=== PATIENT | male | born 1970 | race Caucasian/White ===

== ENCOUNTER → 2017-05-02 | Outpatient (CLI) | payer OTHER ==
[~2017-05-02] MED LIST: /BACL20TA PO; /ROPI5TA OR; ARTHROTEC PO; BACL10TA2 PO; CLON0.5T PO; CLON1TAB PO; CLONIPINE; CLONIPINE PO; COMPOUND CREAM TOP; DICL13PA TD; ETOD20CA PO; IBUP200T2 PO; IBUP400T OR; KLON0.5T PO; LIPITOR PO; LODINE PO; MINI5CAP OR; MIRT7.5T10 PO; MULTIVIT PO; MULTTAB50 PO; REME15TA PO; SILD25TA PO; TIZA4TAB PO; TRAZ50TA OR; TYL RE; ULTR50TA PO; VENL100T PO; VENL37.5 PO; ZANA4CAP OR; [UNRECOGNIZED DRUG - OTHER] PO; [UNRECOGNIZED DRUG - OTHER] TD
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
== END ==
LOC: M PAIN 09:30
PROVIDERS: ATTEND Anesthesiology
DX: M47.812 Spondylosis without myelopathy or radiculopathy, cervical region (principal); M47.816 Spondylosis without myelopathy or radiculopathy, lumbar region; M47.817 Spondylosis without myelopathy or radiculopathy, lumbosacral region; M51.16 Intervertebral disc disorders with radiculopathy, lumbar region; M51.17 Intervertebral disc disorders with radiculopathy, lumbosacral region; M54.5 Low back pain; G89.29 Other chronic pain; Z79.891 Long term (current) use of opiate analgesic; Z79.899 Other long term (current) drug therapy; F17.210 Nicotine dependence, cigarettes, uncomplicated

== ENCOUNTER → 2017-05-15 | Outpatient (CLI) | payer OTHER ==
--- NOTE | 2017-06-09 00:06 | ECWPNPC ---
PATIENT NAME: CARLITO HUA : 1970 GENDER: MALE VISIT DATE: 05/15/2017 DISCHARGE DATE: 05/15/17 1301 VISIT LOCKED DATE TIME: PHYSICIAN: KARINA STALLINGS RESOURCE: KARINA STALLINGS REASON FOR APPOINTMENT 1. MEDS HISTORY OF PRESENT ILLNESS HISTORY OF PRESENT ILLNESS: PAIN THE PATIENT DESCRIBES THE PAIN... FALL RISK SCREENING: SCREENING :NO FALLS IN THE PAST YEAR TODAY'S VISIT: NOTES: RATES PAIN TODAY 7/10. DESCRIBES PAIN CONSTANT, ACHING, SORE AND OCCASIONALLY SHARP AND STABBING. PAIN IS CENTERED OVER BASE OF NECK WITH RADIATION DOWN SPINE TO SACRUM . CURRENT MEDICATIONS TAKING VIAGRA 100 MG TABLET 1 CAP(S) ORALLY DIRECTED TAKING AMITRIPTYLINE HCL 100 MG TABLET 1 TABLET ORALLY ONCE A DAY TAKING OXYCODONE HCL 5 MG TABLET 2 TABLETS ORALLY EVERY 8 HRS TAKING BACLOFEN 20 MG TABLET 2 TABLET WITH FOOD OR MILK ORALLY EVERY 8 HRS TAKING NICOTINE 14 MG/24HR PATCH 24 HOUR 1 PATCH TO SKIN TRANSDERMAL ONCE A DAY TAKING RIBOFLAVIN 100 MG TABLET 2 TABLET WITH A MEAL ORALLY TWICE A DAY TAKING MAGNESIUM 400 MG CAPSULE ORALLY TWICE DAILY TAKING TOPIRAMATE 100 MG TABLET 1 TABLET ORALLY ONCE A DAY MEDICATION LIST REVIEWED AND RECONCILED WITH THE PATIENT PAST MEDICAL HISTORY DEGENERATIVE DISC DISEASE ED ANXIETY, PTSD HEADACHES 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 REVIEW OF SYSTEMS REVIEWED BY: PROVIDER: KARINA STALLINGS CDL FLATBED TRUCK DRIVER . CONSTITUTIONAL: ANY CHANGE IN YOUR MEDICAL CONDITION? NO . CHILLS NO . FEVER NO . INFECTION: DO YOU HAVE NEW INFECTIONS? NO . DO YOU HAVE HISTORY OF MRSA? NO . MUSCULOSKELETAL: ANY NEW PATTERNS OF PAIN OR NUMBNESS? NO . GASTROENTEROLOGY: ANY NEW CHANGE IN BOWEL CONTROL? NO . GENITOURINARY: ANY NEW CHANGE IN BLADDER CONTROL? NO . IS THERE A CHANCE YOU COULD BE ? NO . HEMATOLOGY/LYMPH: DO YOU TAKE ANY BLOOD THINNERS? (FOR EXAMPLE- COUMADIN, PLAVIX, AGGRENOX, PLATEL, PRADAXA, OR XARELTO) NO . WHEN WAS YOUR LAST DOSE? DATE: TIME: . NEUROLOGY: HAVE YOU FALLEN IN THE PAST 6 MONTHS? NO . ANY NEW EXTREMITY NUMBNESS OR WEAKNESS? NO . CARDIOLOGY: DO YOU HAVE A PACEMAKER OR DEFIBRILLATOR? NO . RESPIRATORY: HAVE YOU BEEN SICK IN THE PAST WEEK? NO . FEVER NO . FLU LIKE SYMPTOMS? NO . COUGH NO . INTEGUMENTARY: DO YOU HAVE ANY RASHES OR OPEN SORES? NO . ALLERGIC/IMMUNO: ARE YOU ALLERGIC TO SHELLFISH OR IV DYE? NO . ANY NEW ALLERGIES? NO . PSYCHIATRIC: DO YOU HAVE THOUGHTS OF HURTING YOURSELF OR SOMEONE ELSE? NO . ARE YOU ABUSED, NEGLECTED, OR IN AN UNSAFE ENVIRONMENT? NO . ENDOCRINOLOGY: ARE YOU DIABETIC? NO . OTHER: DO YOU NEED ANY PRESCRIPTIONS? NO . IF YES, PLEASE LIST: ____ . ANY NEW PROBLEMS WITH YOUR MEDICATIONS? NO . WHEN DID YOU LAST EAT? ____ . WHEN DID YOU LAST DRINK? ____ . WHAT DID YOU LAST DRINK? ____ . NAME OF PERSON DRIVING YOU HOME? ____ . DO YOU HAVE ANY OTHER QUESTIONS OR CONCERNS NO . VITAL SIGNS WT 223 LBS, HT 68 IN, BMI 33.90 INDEX, BP 133/84 MM HG, HR 87 /MIN, RR 18 /MIN, TEMP 98.2 F, OXYGEN SAT % 96%, REVIEWED BY: CONNER 1205. EXAMINATION GENERAL EXAMINATION: PSYCHALERT , ORIENTED X 3 , APPROPRIATE MOOD AND AFFECT , GOOD EYE CONTACT. LUNGS:CLEAR TO AUSCULTATION BILATERALLY. HEART:HEART RATE REGULAR. MUSCULOSKELETAL:POINT TENDERNESS OVER CERVICA PARASPINOUS MUSCLES ANS CERVICAL SPINOUS PROCESES. HEAD IN HEAD FORWARD POSITION. TENDER WITH PALPATION OVER BILATERAL OCCIPITAL NOTCH. MARKED DECREASE IN ROM WITH NECK FLEXION, EXTENSION AND ROTATION. , TRIGGER POINTS AND TIGHT FIBROUS BANDS IDENTIFIED OVER BILATERAL TRAPEZIUS MUSCLES AND ALONG SCAPULA. DESIGNER WRITER EQUAL. ABLE TO ABDUSCT ARMS TO 90 DEGREES. NEUROLOGIC EXAM:MRI OF CERVICAL SPINE COMPLETED ON 09/18/15 REVIEWED. ASSESSMENTS SPONDYLOSIS WITHOUT MYELOPATHY OR RADICULOPATHY, CERVICAL REGION - M47.812 (PRIMARY) MYALGIA - M79.1 TREATMENT SPONDYLOSIS WITHOUT MYELOPATHY OR RADICULOPATHY, CERVICAL REGION CERVICAL FACET JOINT KARINA TIERNEY 05/15/2017 12:31:42 PM > BILATERAL THERAPEUTIC NOTES: MEDS PER PCP,FACET JOINT INJECTION MATERIAL WAS PRINTED. PROCEDURE CODES FA211 ESTABILISHED PATIENT [facility] FACILITY CHARGE DISPOSITION & COMMUNICATION FOLLOW UP AFTER PROCEDURE. (REASON: CHECK AUTH FOR CERVICAL THERAPEUTIC FACET BLOCK BILATERAL) ELECTRONICALLY SIGNED BY TOBI BAR ON 06/08/2017 AT 11:05 AM EDT DISCLAIMER : THIS IS A VISIT SUMMARY EXTRACTED FROM THE [employer] CHART. IT IS NOT A COPY OF THE [employer] PROGRESS NOTE. CORIN
== END ==
LOC: M PAIN 11:20
PROVIDERS: ATTEND Nurse Practitioner Family
DX: G89.29 Other chronic pain (principal); M47.812 Spondylosis without myelopathy or radiculopathy, cervical region; M79.1 Myalgia; F41.9 Anxiety disorder, unspecified; F43.10 Post-traumatic stress disorder, unspecified; G25.81 Restless legs syndrome; J44.9 Chronic obstructive pulmonary disease, unspecified; Z79.891 Long term (current) use of opiate analgesic; Z79.899 Other long term (current) drug therapy

== ENCOUNTER → 2017-06-17 | Outpatient (CLI) | payer OTHER ==
[~2017-06-17] MED LIST changes: +BUPIVACAINE HCL 0.25% 30 ML VIAL ONE; +ISOVUE-M 300 61% 15ML VIAL (Q9967) ONE; +LIDOCAINE 1% SDV INJ 30 ML VIAL ONE; +TRIAMCINOLONE ACETONIDE SUSP 40 MG/ML VIAL (J3301) ONE; +diazePAM 5 MG TAB As Ordered ONE; +oxyCODONE 5MG TAB As Ordered ONE
--- NOTE | 2017-06-17 17:20 | REP ---
Partial cervical spine series: Single view. History: Cervical facet block for pain. 6 seconds of fluoroscopy time is reported. Findings: A single last image hold fluoro spot view of the cervical spine documents various needle positions and contrast injections associated with cervical facet injection procedure. Signed by Jv Cagle MD 06/18/2017 07:56 A
--- NOTE | 2017-06-22 23:45 | ECWPNPC ---
PATIENT NAME: CARLITO HUA : 1970 GENDER: MALE VISIT DATE: 06/17/2017 DISCHARGE DATE: 06/17/17 1332 VISIT LOCKED DATE TIME: PHYSICIAN: SHELIA VILLASENOR RESOURCE: SHELIA VILLASENOR REASON FOR APPOINTMENT 1. CERVICAL THERAPEUTIC FACET HISTORY OF PRESENT ILLNESS HISTORY OF PRESENT ILLNESS: PAIN THE PATIENT DESCRIBES THE PAIN... FALL RISK SCREENING: SCREENING :NO FALLS IN THE PAST YEAR CURRENT MEDICATIONS TAKING VIAGRA 100 MG TABLET 1 CAP(S) ORALLY DIRECTED, NOTES: MONTHS TAKING AMITRIPTYLINE HCL 100 MG TABLET 1 TABLET ORALLY ONCE A DAY, NOTES: MIDNIGHT 06/16/17 TAKING OXYCODONE HCL 5 MG TABLET 2 TABLETS ORALLY EVERY 8 HRS, NOTES: 06/16/17 TAKING BACLOFEN 20 MG TABLET 2 TABLET WITH FOOD OR MILK ORALLY EVERY 8 HRS, NOTES: 06/16/17 TAKING NICOTINE 14 MG/24HR PATCH 24 HOUR 1 PATCH TO SKIN TRANSDERMAL ONCE A DAY, NOTES: NOT CURRENTLY TAKING RIBOFLAVIN 100 MG TABLET 2 TABLET WITH A MEAL ORALLY TWICE A DAY, NOTES: 179906/16/17 TAKING MAGNESIUM 400 MG CAPSULE ORALLY TWICE DAILY, NOTES: 1800 06/16/17 TAKING TOPIRAMATE 100 MG TABLET 1 TABLET ORALLY ONCE A DAY, NOTES: 06/16/17 MEDICATION LIST REVIEWED AND RECONCILED WITH THE PATIENT PAST MEDICAL HISTORY DEGENERATIVE DISC DISEASE ED ANXIETY, PTSD HEADACHES 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 REVIEW OF SYSTEMS REVIEWED BY: PROVIDER: . CONSTITUTIONAL: ANY CHANGE IN YOUR MEDICAL CONDITION? NO . CHILLS NO . FEVER NO . INFECTION: DO YOU HAVE NEW INFECTIONS? NO . DO YOU HAVE HISTORY OF MRSA? NO . MUSCULOSKELETAL: ANY NEW PATTERNS OF PAIN OR NUMBNESS? NO . GASTROENTEROLOGY: ANY NEW CHANGE IN BOWEL CONTROL? NO . GENITOURINARY: ANY NEW CHANGE IN BLADDER CONTROL? NO . IS THERE A CHANCE YOU COULD BE ? NO . HEMATOLOGY/LYMPH: DO YOU TAKE ANY BLOOD THINNERS? (FOR EXAMPLE- COUMADIN, PLAVIX, AGGRENOX, PLATEL, PRADAXA, OR XARELTO) NO . WHEN WAS YOUR LAST DOSE? DATE: TIME: . NEUROLOGY: HAVE YOU FALLEN IN THE PAST 6 MONTHS? NO . ANY NEW EXTREMITY NUMBNESS OR WEAKNESS? NO . CARDIOLOGY: DO YOU HAVE A PACEMAKER OR DEFIBRILLATOR? NO . RESPIRATORY: HAVE YOU BEEN SICK IN THE PAST WEEK? NO . FEVER NO . FLU LIKE SYMPTOMS? NO . COUGH NO . INTEGUMENTARY: DO YOU HAVE ANY RASHES OR OPEN SORES? NO . ALLERGIC/IMMUNO: ARE YOU ALLERGIC TO SHELLFISH OR IV DYE? NO . ANY NEW ALLERGIES? NO . PSYCHIATRIC: DO YOU HAVE THOUGHTS OF HURTING YOURSELF OR SOMEONE ELSE? NO . ARE YOU ABUSED, NEGLECTED, OR IN AN UNSAFE ENVIRONMENT? NO . ENDOCRINOLOGY: ARE YOU DIABETIC? NO . OTHER: DO YOU NEED ANY PRESCRIPTIONS? NO . IF YES, PLEASE LIST: ____ . ANY NEW PROBLEMS WITH YOUR MEDICATIONS? NO . WHEN DID YOU LAST EAT? 7PM . WHEN DID YOU LAST DRINK? 0600 . WHAT DID YOU LAST DRINK? BLACK COFFEE . NAME OF PERSON DRIVING YOU HOME? VIKTOR . DO YOU HAVE ANY OTHER QUESTIONS OR CONCERNS NO . VITAL SIGNS WT 222 LBS, HT 68 IN, BMI 33.75 INDEX, BP 120/87 MM HG, HR 100 /MIN, RR 18 /MIN, TEMP 98.9 F, OXYGEN SAT % 96%, NA INITIALS SC 11:23, REVIEWED BY: NL. ASSESSMENTS SPONDYLOSIS WITHOUT MYELOPATHY OR RADICULOPATHY, LUMBAR REGION - M47.816 (PRIMARY) PROCEDURES PN CERVICAL FACET BLOCK LOW BILATERAL CERVICAL PRE PROCEDURE DIAGNOSIS CERVICAL SPONDYLOSIS POST PROCEDURE DIAGNOSIS CERVICAL SPONDYLOSIS PROCEDURE BILATERAL C3-C4 AND BILATERAL C5-C6 CERVICAL FACET BLOCK SURGEON DR. SHELIA VILLASENOR FULL TIME BABYSITTER NONE ANESTHESIA LOCAL PRE PROCEDURE NOTE THE PATIENT HAS HISTORY OF CHRONIC CERVICAL PAIN. I EVALUATE THE PATIENT AND REVIEWED THE CHART. I WENT OVER THE RISKS, ALTERNATIVES, AND BENEFITS ASSOCIATED WITH THIS PROCEDURE. THE PATIENT WOULD LIKE TO PROCEED AND GIVE CONSENT TO PERFORMED THE PROCEDURE. THE PATIENT DENIES UNEXPLAINABLE WEIGHT LOSS, FEVER, CHILLS, OR NEW CHANGES IN URINARY OR BOWEL CONTROL. DESCRIPTION OF PROCEDURE THE PATIENT WAS BROUGHT TO THE PROCEDURE ROOM AND PLACED IN THE PRONE POSITION. THE CERVICOTHORACIC AREA WAS CLEANED WITH CHLORAPREP SOLUTION AND DRAPED ASEPTICALLY. THE PROCEDURE WAS DONE UNDER STERILE CONDITIONS. I CHECKED LATERALITY AND THE LEVEL WHERE THE PROCEDURE WAS GOING TO BE PERFORMED WITH THE PATIENT AND THE SUPPORTING STAFF AT THE MOMENT OF THE TIME OUT IN THE PROCEDURE ROOM. UNDER FLUOROSCOPIC GUIDANCE, TARGET POINT WAS SELECTED AT THE RIGHT AND LEFT C3-C4 AND RIGHT AND LEFT C5-C6 CERVICAL FACET JOINT. TARGET POINTS WERE SELECTED AFTER LATERAL ROTATION AND TILT OF THE MAGNIFIER OF THE C-ARM. LIDOCAINE 0.5% WAS USED TO NUMB THE SKIN AND THE SUBCUTANEOUS TISSUE BELOW IT. SPINAL NEEDLES, 22-GAUGE, WERE ADVANCED UNDER FLUOROSCOPIC GUIDANCE AND FOLLOWING PATIENT FEEDBACK UNTIL THE TARGETS WERE TOUCHED. THE POSITION OF THE NEEDLES WAS VERIFIED WITH AP AND LATERAL VIEWS. AFTER PROPER POSITION OF THE NEEDLES WAS ACHIEVED, ISOVUE M DYE 30, 0.1 ML WAS INJECTED SHOWING SPREAD OF THE DYE. THEN A SOLUTION OF 0.9 ML OF BUPIVACAINE 0.125% AND KENALOG 10 MG WAS INJECTED AT EACH SITE. THERE WAS NO EVIDENCE OF BLOOD, PARESTHESIA OR CEREBROSPINAL FLUID DURING THE PROCEDURE. THE PATIENT WAS SENT TO THE RECOVERY ROOM. THE PATIENT WAS MOVING THE EXTREMITIES AND DOING WELL. THERE WAS NO COMPLICATION DURING THE PROCEDURE. FLUOROSCOPY TIME WAS 6 SECONDS POST PROCEDURE NOTE THE PATIENT WILL BE SEEN IN A FOLLOW UP IN THE NEXT FEW WEEKS. INSTRUCTIONS WERE GIVEN, QUESTIONS WERE ANSWERED, AND THE PATIENT EXPRESSED UNDERSTANDING AND AGREES WITH THE PLAN. I, BOBBY MILLAN, DOCUMENTED THE ABOVE INFORMATION ACTING A SCRIBE FOR DR. VILLASENOR. I HAVE REVIEWED THE ABOVE DOCUMENT, WRITTEN BY BOBBY MILLAN SCRIBSherrill AND I VERIFY THAT IT IS ACCURATE DIAGNOSTIC IMAGING [facility] FACET BLOCK (PAIN)[id number] PROCEDURE CODES 23825 INJ PARAVERT F JNT C/T 1 LEV 89620 INJ PARAVERT F JNT C/T 2 LEV 6045F RADXPS IN END [id number] PXD DISPOSITION & COMMUNICATION FOLLOW UP 3 WEEKS ELECTRONICALLY SIGNED BY SHELIA VILLASENOR MD ON 06/22/2017 AT 07:14 PM EDT DISCLAIMER : THIS IS A VISIT SUMMARY EXTRACTED FROM THE [facility] CHART. IT IS NOT A COPY OF THE [facility] PROGRESS NOTE. MTDD
== END ==
LOC: M PAIN 10:45
PROVIDERS: ATTEND Anesthesiology
DX: G89.29 Other chronic pain (principal); M47.812 Spondylosis without myelopathy or radiculopathy, cervical region; F41.9 Anxiety disorder, unspecified; F43.10 Post-traumatic stress disorder, unspecified; G25.81 Restless legs syndrome; J44.9 Chronic obstructive pulmonary disease, unspecified; Z79.891 Long term (current) use of opiate analgesic; Z79.899 Other long term (current) drug therapy
CPT/HCPCS: 64490; 64491; J3301; Q9967

== ENCOUNTER → 2017-07-04 | Outpatient (CLI) | payer OTHER ==
[~2017-07-04] MED LIST changes: -BUPIVACAINE HCL 0.25% 30 ML VIAL ONE; -ISOVUE-M 300 61% 15ML VIAL (Q9967) ONE; -LIDOCAINE 1% SDV INJ 30 ML VIAL ONE; -TRIAMCINOLONE ACETONIDE SUSP 40 MG/ML VIAL (J3301) ONE; -diazePAM 5 MG TAB As Ordered ONE; -oxyCODONE 5MG TAB As Ordered ONE
--- NOTE | 2017-07-25 00:47 | ECWPNPC ---
PATIENT NAME: CARLITO HUA : 1970 GENDER: MALE VISIT DATE: 07/04/2017 DISCHARGE DATE: 07/04/17 1211 VISIT LOCKED DATE TIME: PHYSICIAN: KARINA STALLINGS RESOURCE: KARINA STALLINGS REASON FOR APPOINTMENT 1. POST PROCEDURE HISTORY OF PRESENT ILLNESS HISTORY OF PRESENT ILLNESS: PAIN THE PATIENT DESCRIBES THE PAIN... FALL RISK SCREENING: SCREENING :NO FALLS IN THE PAST YEAR TODAY'S VISIT: NOTES: IS S/P BILATERAL CERVICAL FACET BLOCK ON . NOTES NEARLY 8 DAYS OF PAIN RELIEF . HAS IMPROVEMEENT IN NECK FLEXABILITY AND WAS ABLE TO HOLD HEADUPRIGHT DURING THIS PERIOD. SLEEP WAS ALSO IMPROVED. HAD ONLY 1 MIGRAINE DURING THIS WEEK. MIGRAINES ARE USUALLY 2-3/WEEK AND LAST 12 + HOURS. + N/V, +PHOT/+PHONO. MIGRAINES ARE BIFRONTAL, START WITH AN AURA AND A SENSE OF STABBING INTO THE YES.. CURRENT MEDICATIONS TAKING VIAGRA 100 MG TABLET 1 CAP(S) ORALLY DIRECTED TAKING AMITRIPTYLINE HCL 100 MG TABLET 1 TABLET ORALLY ONCE A DAY TAKING OXYCODONE HCL 5 MG TABLET 2 TABLETS ORALLY EVERY 8 HRS TAKING BACLOFEN 20 MG TABLET 2 TABLET WITH FOOD OR MILK ORALLY EVERY 8 HRS TAKING RIBOFLAVIN 100 MG TABLET 2 TABLET WITH A MEAL ORALLY TWICE A DAY TAKING MAGNESIUM 400 MG CAPSULE ORALLY TWICE DAILY TAKING TOPIRAMATE 100 MG TABLET 1 TABLET ORALLY ONCE A DAY NOT-TAKING NICOTINE 14 MG/24HR PATCH 24 HOUR 1 PATCH TO SKIN TRANSDERMAL ONCE A DAY MEDICATION LIST REVIEWED AND RECONCILED WITH THE PATIENT PAST MEDICAL HISTORY DEGENERATIVE DISC DISEASE ED ANXIETY, PTSD HEADACHES 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 SURGICAL HISTORY BILATERAL INGUINAL HERNIORRHAPHY (AGE 1) REVIEW OF SYSTEMS REVIEWED BY: PROVIDER: KARINA SOTELO . CONSTITUTIONAL: ANY CHANGE IN YOUR MEDICAL CONDITION? NO . CHILLS NO . FEVER NO . INFECTION: DO YOU HAVE NEW INFECTIONS? NO . DO YOU HAVE HISTORY OF MRSA? NO . MUSCULOSKELETAL: ANY NEW PATTERNS OF PAIN OR NUMBNESS? NO . GASTROENTEROLOGY: ANY NEW CHANGE IN BOWEL CONTROL? NO . GENITOURINARY: ANY NEW CHANGE IN BLADDER CONTROL? NO . IS THERE A CHANCE YOU COULD BE ? NO . HEMATOLOGY/LYMPH: DO YOU TAKE ANY BLOOD THINNERS? (FOR EXAMPLE- COUMADIN, PLAVIX, AGGRENOX, PLATEL, PRADAXA, OR XARELTO) NO . WHEN WAS YOUR LAST DOSE? DATE: TIME: . NEUROLOGY: HAVE YOU FALLEN IN THE PAST 6 MONTHS? NO . ANY NEW EXTREMITY NUMBNESS OR WEAKNESS? NO . CARDIOLOGY: DO YOU HAVE A PACEMAKER OR DEFIBRILLATOR? NO . RESPIRATORY: HAVE YOU BEEN SICK IN THE PAST WEEK? NO . FEVER NO . FLU LIKE SYMPTOMS? NO . COUGH NO . INTEGUMENTARY: DO YOU HAVE ANY RASHES OR OPEN SORES? NO . ALLERGIC/IMMUNO: ARE YOU ALLERGIC TO SHELLFISH OR IV DYE? NO . ANY NEW ALLERGIES? NO . PSYCHIATRIC: DO YOU HAVE THOUGHTS OF HURTING YOURSELF OR SOMEONE ELSE? NO . ARE YOU ABUSED, NEGLECTED, OR IN AN UNSAFE ENVIRONMENT? NO . ENDOCRINOLOGY: ARE YOU DIABETIC? NO . OTHER: DO YOU NEED ANY PRESCRIPTIONS? NO . IF YES, PLEASE LIST: ____ . ANY NEW PROBLEMS WITH YOUR MEDICATIONS? NO . WHEN DID YOU LAST EAT? ____ . WHEN DID YOU LAST DRINK? ____ . WHAT DID YOU LAST DRINK? ____ . NAME OF PERSON DRIVING YOU HOME? ____ . DO YOU HAVE ANY OTHER QUESTIONS OR CONCERNS NO . PSYCHOLOGY: ANXIETY SIGNIFICANT ANXIETY AND WORRY CONCERNING 'S HEALTH&NBSP;. VITAL SIGNS WT 220 LBS, HT 68 IN, BMI 33.45 INDEX, BP 138/94 MM HG, HR 88 /MIN, RR 18 /MIN, TEMP 97.5 F, OXYGEN SAT % 94, REVIEWED BY: EM. EXAMINATION GENERAL EXAMINATION: PSYCHALERT , ORIENTED X 3 , APPROPRIATE MOOD AND AFFECT , GOOD EYE CONTACT. LUNGS:CLEAR TO AUSCULTATION BILATERALLY. HEART:HEART RATE REGULAR. MUSCULOSKELETAL:POINT TENDERNESS OVER CERVICA PARASPINOUS MUSCLES ANS CERVICAL SPINOUS PROCESES. HEAD MORE UPRIGHT TODAY. TENDER WITH PALPATION OVER BILATERAL OCCIPITAL NOTCH. DECREASE IN ROM WITH NECK FLEXION, EXTENSION AND ROTATION. , TRIGGER POINTS AND TIGHT FIBROUS BANDS IDENTIFIED OVER BILATERAL TRAPEZIUS MUSCLES AND ALONG SCAPULA. PROCESS ENGINEERING TECHNICIAN EQUAL. ABLE TO ABDUSCT ARMS TO 90 DEGREES. ASSESSMENTS SPONDYLOSIS WITHOUT MYELOPATHY OR RADICULOPATHY, CERVICAL REGION - M47.812 (PRIMARY) MYALGIA - M79.1 MIGRAINE WITH AURA AND WITHOUT STATUS MIGRAINOSUS, NOT INTRACTABLE - G43.109 LOW BACK PAIN AT MULTIPLE SITES - M54.5 TREATMENT SPONDYLOSIS WITHOUT MYELOPATHY OR RADICULOPATHY, CERVICAL REGION [facility] MRI SPINE, L.S. WITHOUT [id number],SUSAN M 07/04/2017 11:56:13 AM > LUMBAR RADICULOPATHY, MIGRAINE WITH AURA AND WITHOUT STATUS MIGRAINOSUS, NOT INTRACTABLE CHEMODENERVATION (BOTOX) MISC-MIGRAINE HEADACHES PROCEDURE CODES FA211 ESTABILISHED PATIENT [facility] FACILITY CHARGE DISPOSITION & COMMUNICATION FOLLOW UP AFTER INJECTION/MRI (REASON: CHECK AUTH FOR BOTOX AND MRI LUMBAR SPINE) ELECTRONICALLY SIGNED BY TOBI BAR ON 07/24/2017 AT 09:44 PM EDT DISCLAIMER : THIS IS A VISIT SUMMARY EXTRACTED FROM THE [employer] CHART. IT IS NOT A COPY OF THE [employer] PROGRESS NOTE. CORIN
== END ==
LOC: M PAIN 11:00
PROVIDERS: ATTEND Nurse Practitioner Family
DX: G89.29 Other chronic pain (principal); M47.812 Spondylosis without myelopathy or radiculopathy, cervical region; M79.1 Myalgia; G43.109 Migraine with aura, not intractable, without status migrainosus; M54.5 Low back pain; F43.10 Post-traumatic stress disorder, unspecified; F41.9 Anxiety disorder, unspecified; G25.81 Restless legs syndrome; J44.9 Chronic obstructive pulmonary disease, unspecified; Z79.891 Long term (current) use of opiate analgesic; Z79.899 Other long term (current) drug therapy

== ENCOUNTER → 2017-08-08 | Outpatient (CLI) | payer OTHER ==
--- NOTE | 2017-08-08 10:19 | REP ---
MRI LUMBAR SPINE WITHOUT CONTRAST: HISTORY: Back pain. COMPARISON: 05/15/2011. Decreased signal intensity on T2-weighted images is present in the L4-5 and L5-S1 intervertebral discs. The discs are decreased in height. These findings are consistent with disc degeneration. There is no disc bulge or herniation at the L1-2 and L2-3 levels. The nerves exit the neural foramina without compression. A diffuse disc bulge is present at the L3-4 level. There is minimal compression of the thecal sac. There is hypertrophy of the posterior articulating facets. The L3 nerves exit the neural foramina without compression. A diffuse disc bulge is present at the L4-5 level. There is minimal compression of the thecal sac. There is hypertrophy of the posterior articulating facets. A small left intraforaminal disc protrusion is present. This abuts the left L4 nerve in the neural foramen. The right L4 nerve exit the neural foramen without compression. A diffuse disc bulge and small central disc protrusion are present at the L5-S1 level. There is minimal compression of the thecal sac. There is hypertrophy of the posterior articulating facets. The L5 nerves exit the neural foramina without compression. The conus medullaris is normal in appearance terminating at the level of the L1-2 intervertebral disc. Normal signal intensity is present in the lumbar vertebral bodies. IMPRESSION: 1. Diffuse disc bulges at the L3-4 and L4-5 levels with minimal thecal sac compression. A small left intraforaminal disc protrusion is present. This abuts the left L4 nerve in the neural foramen. The disc protrusion is a new finding. 2. Diffuse disc bulge and small central disc protrusion at the L5-S1 level with minimal thecal sac compression. The disc bulge is a new finding. Signed by Leoncio Encarnacion MD 08/08/2017 10:41 A
== END ==
LOC: M PLARAD 08:19
PROVIDERS: ATTEND Nurse Practitioner Family
DX: M54.2 Cervicalgia (principal)

== ENCOUNTER → 2017-08-19 | Outpatient (CLI) | payer OTHER ==
[~2017-08-19] MED LIST changes: +BUPIVACAINE HCL 0.25% 10 ML VIAL As Ordered ONE; +BUPIVACAINE HCL 0.25% 30 ML VIAL As Ordered ONE; +TRIAMCINOLONE ACETONIDE SUSP 40 MG/ML VIAL (J3301) As Ordered ONE; +diazePAM 5 MG TAB As Ordered ONE; +oxyCODONE 5MG TAB As Ordered ONE
--- NOTE | 2017-08-24 23:38 | ECWPNPC ---
PATIENT NAME: CARLITO HUA : 1970 GENDER: MALE VISIT DATE: 08/19/2017 DISCHARGE DATE: 08/19/17 1638 VISIT LOCKED DATE TIME: PHYSICIAN: SHELIA VILLASENOR RESOURCE: SHELIA VILLASENOR REASON FOR APPOINTMENT 1. TPI HISTORY OF PRESENT ILLNESS HISTORY OF PRESENT ILLNESS: PAIN THE PATIENT DESCRIBES THE PAIN... FALL RISK SCREENING: SCREENING :NO FALLS IN THE PAST YEAR CURRENT MEDICATIONS TAKING VIAGRA 100 MG TABLET 1 CAP(S) ORALLY DIRECTED TAKING AMITRIPTYLINE HCL 100 MG TABLET 1 TABLET ORALLY ONCE A DAY, NOTES: 08/18/17 2400 TAKING OXYCODONE HCL 5 MG TABLET 2 TABLETS ORALLY EVERY 8 HRS MDD 5/DAY, NOTES: 08/19/17629 TAKING BACLOFEN 20 MG TABLET 2 TABLET WITH FOOD OR MILK ORALLY EVERY 8 HRS, NOTES: 08/19/17629 TAKING RIBOFLAVIN 100 MG TABLET 2 TABLET WITH A MEAL ORALLY TWICE A DAY, NOTES: 08/19/17629 TAKING MAGNESIUM 400 MG CAPSULE ORALLY TWICE DAILY, NOTES: 08/19/17629 TAKING TOPIRAMATE 100 MG TABLET 1 TABLET ORALLY ONCE A DAY, NOTES: 08/18/172399 TAKING ATORVASTATIN CALCIUM 80 MG TABLET 1 TABLET ORALLY ONCE A DAY, NOTES: 08/18/171999 TAKING NICOTINE 14 MG/24HR PATCH 24 HOUR 1 PATCH TO SKIN TRANSDERMAL ONCE A DAY MEDICATION LIST REVIEWED AND RECONCILED WITH THE PATIENT PAST MEDICAL HISTORY DEGENERATIVE DISC DISEASE ED ANXIETY, PTSD HEADACHES 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 REVIEW OF SYSTEMS REVIEWED BY: PROVIDER: . CONSTITUTIONAL: ANY CHANGE IN YOUR MEDICAL CONDITION? NO . CHILLS NO . FEVER NO . INFECTION: DO YOU HAVE NEW INFECTIONS? NO . DO YOU HAVE HISTORY OF MRSA? NO . MUSCULOSKELETAL: ANY NEW PATTERNS OF PAIN OR NUMBNESS? NO . GASTROENTEROLOGY: ANY NEW CHANGE IN BOWEL CONTROL? NO . GENITOURINARY: ANY NEW CHANGE IN BLADDER CONTROL? NO . IS THERE A CHANCE YOU COULD BE ? NO . HEMATOLOGY/LYMPH: DO YOU TAKE ANY BLOOD THINNERS? (FOR EXAMPLE- COUMADIN, PLAVIX, AGGRENOX, PLATEL, PRADAXA, OR XARELTO) NO . WHEN WAS YOUR LAST DOSE? DATE: TIME: . NEUROLOGY: HAVE YOU FALLEN IN THE PAST 6 MONTHS? NO . ANY NEW EXTREMITY NUMBNESS OR WEAKNESS? NO . CARDIOLOGY: DO YOU HAVE A PACEMAKER OR DEFIBRILLATOR? NO . RESPIRATORY: HAVE YOU BEEN SICK IN THE PAST WEEK? NO . FEVER NO . FLU LIKE SYMPTOMS? NO . COUGH NO . INTEGUMENTARY: DO YOU HAVE ANY RASHES OR OPEN SORES? NO . ALLERGIC/IMMUNO: ARE YOU ALLERGIC TO SHELLFISH OR IV DYE? NO . ANY NEW ALLERGIES? NO . PSYCHIATRIC: DO YOU HAVE THOUGHTS OF HURTING YOURSELF OR SOMEONE ELSE? NO . ARE YOU ABUSED, NEGLECTED, OR IN AN UNSAFE ENVIRONMENT? NO . ENDOCRINOLOGY: ARE YOU DIABETIC? NO . OTHER: DO YOU NEED ANY PRESCRIPTIONS? NO . IF YES, PLEASE LIST: ____ . ANY NEW PROBLEMS WITH YOUR MEDICATIONS? NO . WHEN DID YOU LAST EAT? 08-19-17629 . WHEN DID YOU LAST DRINK? 08-19-17629 . WHAT DID YOU LAST DRINK? COFFEE . NAME OF PERSON DRIVING YOU HOME? JAYLAN- . DO YOU HAVE ANY OTHER QUESTIONS OR CONCERNS NO . VITAL SIGNS WT 220 LBS, HT 68 IN, BMI 33.45 INDEX, BP 119/89 MM HG, HR 94 /MIN, RR 18 /MIN, TEMP 98.0 F, OXYGEN SAT % 94%, NA INITIALS AW 1446, REVIEWED BY: CM. ASSESSMENTS MYALGIA - M79.1 (PRIMARY) PROCEDURES PN TRIGGER POINT INJECTION WITH STEROIDS PRE PROCEDURE DIAGNOSIS 1. MYALGIA 2. PAIN AT RIGHT NECK AREA AND RIGHT SHOULDER AREA POST PROCEDURE DIAGNOSIS 1. MYALGIA 2. PAIN AT RIGHT NECK AREA AND RIGHT SHOULDER AREA PROCEDURE TRIGGER POINT INJECTION AT RIGHT NECK AREA AND RIGHT SHOULDER AREA SURGEON DR. SHELIA VILLASENOR STUD BEEF CATTLE FARMER NONE ANESTHESIA LOCAL PRE PROCEDURE NOTE THE PATIENT HAS A HISTORY OF CHRONIC PAIN AT THE RIGHT NECK AREA AND RIGHT SHOULDER AREA. I EVALUATE THE PATIENT AND REVIEWED THE CHART. THERE IS EVIDENCE OF BANDS OF TISSUE WITH RESTRICTION OF MOVEMENT AND PRESENCE OF TRIGGER POINT AT THE AFFECTED AREA. I WENT OVER THE RISKS, ALTERNATIVES, AND BENEFITS ASSOCIATED WITH THIS PROCEDURE. THE PATIENT WOULD LIKE TO PROCEED AND GIVE CONSENT TO PERFORMED THE PROCEDURE. THE PATIENT DENIES UNEXPLAINABLE WEIGHT LOSS, FEVER, CHILLS, OR NEW CHANGES IN URINARY OR BOWEL CONTROL DESCRIPTION OF PROCEDURE THE PATIENT WAS BROUGHT TO THE PROCEDURE ROOM AND PLACED IN THE SITTING POSITION. THE AREA WAS CLEANED WITH ALCOHOL. THE PROCEDURE WAS DONE USING ASEPTIC STERILE TECHNIQUE. I CHECKED LATERALITY AND THE LEVEL WHERE THE PROCEDURE WAS GOING TO BE PERFORMED WITH THE PATIENT AND THE SUPPORTING STAFF AT THE MOMENT OF THE TIME OUT IN THE PROCEDURE ROOM. USING A 25-GAUGE NEEDLE, TRIGGER POINTS WERE INJECTED AT THE RIGHT NECK AREA AND RIGHT SHOULDER AREA WITH A TOTAL OF 40 ML OF BUPIVACAINE 0.25% AND KENALOG 40 MG. THERE WAS NO EVIDENCE OF BLOOD, PARESTHESIA OR CEREBROSPINAL FLUID DURING THE PROCEDURE. THE PATIENT WAS SENT TO THE RECOVERY ROOM. THE PATIENT WAS MOVING THE EXTREMITIES AND DOING WELL. THERE WAS NO COMPLICATION DURING THE PROCEDURE POST PROCEDURE NOTE THE PATIENT WILL BE SEEN IN A FOLLOW UP IN THE NEXT FEW WEEKS. INSTRUCTIONS WERE GIVEN, QUESTIONS WERE ANSWERED, AND THE PATIENT EXPRESSED UNDERSTANDING AND AGREES WITH THE PLAN. I, BOBBY MILLAN, DOCUMENTED THE ABOVE INFORMATION ACTING A SCRIBE FOR DR. VILLASENOR. I HAVE REVIEWED THE ABOVE DOCUMENT, WRITTEN BY BOBBY GONGORA AND I VERIFY THAT IT IS ACCURATE PROCEDURE CODES 16631 INJ TRIGGER POINT 11/04 [facility] DISPOSITION & COMMUNICATION FOLLOW UP 3 WEEKS ELECTRONICALLY SIGNED BY SHELIA VILLASENOR MD ON 08/24/2017 AT 01:39 PM EDT DISCLAIMER : THIS IS A VISIT SUMMARY EXTRACTED FROM THE [employer] CHART. IT IS NOT A COPY OF THE [employer] PROGRESS NOTE. CORIN
== END ==
LOC: M PAIN 14:30
PROVIDERS: ATTEND Anesthesiology
DX: G89.29 Other chronic pain (principal); M54.2 Cervicalgia; M25.511 Pain in right shoulder; M79.1 Myalgia; F41.9 Anxiety disorder, unspecified; F43.10 Post-traumatic stress disorder, unspecified; G25.81 Restless legs syndrome; J44.9 Chronic obstructive pulmonary disease, unspecified; Z79.891 Long term (current) use of opiate analgesic; Z79.899 Other long term (current) drug therapy
CPT/HCPCS: 20552; J3301

== ENCOUNTER → 2017-09-10 | Outpatient (CLI) | payer OTHER ==
[~2017-09-10] MED LIST changes: -BUPIVACAINE HCL 0.25% 10 ML VIAL As Ordered ONE; -BUPIVACAINE HCL 0.25% 30 ML VIAL As Ordered ONE; -TRIAMCINOLONE ACETONIDE SUSP 40 MG/ML VIAL (J3301) As Ordered ONE; -diazePAM 5 MG TAB As Ordered ONE; -oxyCODONE 5MG TAB As Ordered ONE
--- NOTE | 2017-10-01 00:10 | ECWPNPC ---
PATIENT NAME: CARLITO HUA : 1970 GENDER: MALE VISIT DATE: 09/10/2017 DISCHARGE DATE: 09/10/17 1613 VISIT LOCKED DATE TIME: PHYSICIAN: KARINA STALLINGS RESOURCE: KARINA STALLINGS REASON FOR APPOINTMENT 1. NECK HISTORY OF PRESENT ILLNESS TODAY'S VISIT: NOTES: RATES PAIN LEVEL TODAY 7/10. IS S/P TPI TO NECK AND SHOULDERS ON 08/1717 WITH DECREASE IN PAIN FROM 7/10 TO 3/10 AND WORST [AIN BECAME THORACIC AND LOW BACK REGION. DID HAVE SOEM DECREASE IN HEADACHES . THIS LASTED FOR ABOUT 3 WEEKS. CURRENTLY MIGRAINE IS OCCURRING 3-4 DAYS A WEEK AND LASTING 20 HOURS. IS HAVING SIG PHOTOPHOBIA AND IS WEARING DARK LENSES. POS NAUSEA WITH THE MIGRAINES. HAS NOT HEARD FROM AUTH FOR BOTOX. CURRENT MEDICATIONS TAKING VIAGRA 100 MG TABLET 1 CAP(S) ORALLY DIRECTED TAKING AMITRIPTYLINE HCL 150 MG TABLET 1 TABLET ORALLY ONCE A DAY TAKING OXYCODONE HCL 5 MG TABLET 2 TABLETS ORALLY EVERY 8 HRS MDD 3/DAY TAKING BACLOFEN 20 MG TABLET 2 TABLET WITH FOOD OR MILK ORALLY EVERY 8 HRS TAKING RIBOFLAVIN 100 MG TABLET 2 TABLET WITH A MEAL ORALLY TWICE A DAY TAKING MAGNESIUM 400 MG CAPSULE ORALLY TWICE DAILY TAKING TOPIRAMATE 100 MG TABLET 1 TABLET ORALLY NIGHTLY TAKING ATORVASTATIN CALCIUM 80 MG TABLET 1 TABLET ORALLY ONCE A DAY TAKING NICOTINE 14 MG/24HR PATCH 24 HOUR 1 PATCH TO SKIN TRANSDERMAL ONCE A DAY TAKING TOPIRAMATE 50 MG TABLET 1 TABLET ORALLY IN MORNING MEDICATION LIST REVIEWED AND RECONCILED WITH THE PATIENT PAST MEDICAL HISTORY DEGENERATIVE DISC DISEASE ED ANXIETY, PTSD HEADACHES HEARING IMPAIMENT LOW BACK AND NECK PAIN RESTLESS LEG SYNDROME COPD W/O2 2L N/C AT NIGHT ALLERGIES NO[ALLERGIES VERIFIED] SURGICAL HISTORY BILATERAL INGUINAL HERNIORRHAPHY (AGE 1) SOCIAL HISTORY GENERAL: TOBACCO USE ARE YOU A:CURRENT SMOKER ARE YOU INTERESTED IN QUITTING?READY TO QUIT PREVIOUS QUIT ATTEMPTS?YES, WITHIN THE LAST 6 MONTHS. IS ONLY HAVING 1-2 CIGS OCC NOT EVERY DAY. COUNSELED THE PATIENT ON TOBACCO USE, CESSATION [id number]/30/2017 HOW MANY CIGARETTES A DAY DO YOU SMOKE?5 OR LESS PATIENT COUNSELED ON THE DANGERS OF TOBACCO USE AND URGED TO QUIT:05/02/2017 ALCOHOL SCREENING DID YOU HAVE A DRINK CONTAINING ALCOHOL IN THE PAST YEAR?NO POINTS0 INTERPRETATIONNEGATIVE RECREATIONAL DRUG USE DRUG USE?NO CAFFEINE CAFFEINE USE?YES HOW OFTEN AND HOW MUCH? HAS ONE CUB OF COFFEE DAILY ORTHODOXY [id number] NONE LEARNING BARRIERS / SPECIAL NEEDS BARRIERS TO LEARNING?NO HEARING IMPAIRED?YES : SLIGHT HEARING IMPAIRED VISION IMPAIRED?YES : CORRECTIVE LENSES READINESS TO LEARN?YES LEARNING PREFERENCES?NO EMOTIONAL BARRIERS?NO SPECIAL DEVICES?NO DIRECTOR OF MARKET ANALYSIS NEEDED?NO PSYCHOLOGICAL HX TREATMENTYES HOW OFTEN AND HOW MUCH? MONTHLY AND WEEKLY PAIN CLINIC PFS, CLERGY, PUBLIC HEALTH REFERRALS PFS REFERRAL NEEDED?NO CLERGY REFERRAL NEEDED?NO PUBLIC HEALTH REFERRAL NEEDED?NO WAS THE PROVIDER NOTIFIED OF ANY PERTINENT INFO?NO HAS THE PATIENT BEEN EDUCATED REGARDING HIS/HER PLAN OF CARE?YES HAS THE PATIENT BEEN EDUCATED REGARDING PAIN, THE RISK FOR PAIN, THE IMPORTANCE OF EFFECTIVE PAIN MANAGEMENT, AND THE PAIN ASSESSMENT PROCESS?YES PATIENT: ____. ADVANCE DIRECTIVES HEALTH CARE PROXY?NO WOULD YOU LIKE MORE INFORMATION?NO VITAL SIGNS WT 227.8 LBS, HT 68 IN, BMI 34.63 INDEX, BP 147/91 MM HG, HR 89 /MIN, RR 18 /MIN, TEMP 98.2 F, OXYGEN SAT % 96%, NA INITIALS SC 15:02, REVIEWED BY: NL. ASSESSMENTS MYALGIA - M79.1 (PRIMARY) SPONDYLOSIS WITHOUT MYELOPATHY OR RADICULOPATHY, CERVICAL REGION - M47.812 MIGRAINE WITH AURA AND WITHOUT STATUS MIGRAINOSUS, NOT INTRACTABLE - G43.109 LOW BACK PAIN AT MULTIPLE SITES - M54.5 TREATMENT MYALGIA START TIZANIDINE HCL TABLET, 4 MG, 1 TABLET NEEDED, ORALLY, BID PRN SEVERE MUSCLE SPASMS, 30 DAY(S), 60, REFILLS 0 CERVICAL EPIDURAL RIGHT NOTES: WILL CONTINUE TO CHECK ON BOTOX FOR CHRONIC MIGRAINETAKE 1/2 TAB TIZANIDINE AM AND MIDDAY AND WHOLE TAB AT NITE. CONSIDER BEING SEEN AT [facility] FOR TINNITUS. ,CERVICAL EPIDURAL INJECTION MATERIAL WAS PRINTED. PREVENTIVE MEDICINE REVIEWED PRE PROCEDURE CARE AND TRUDY / PT EXPRESSED UNDERSTANDING OF ALL. PROCEDURE CODES FA211 ESTABILISHED PATIENT [facility] FACILITY CHARGE DISPOSITION & COMMUNICATION FOLLOW UP SCHEDULE FOR CESB, FOLLOWUP AFTER (REASON: NECK - MIGRAINE,) ELECTRONICALLY SIGNED BY TOBI BAR ON 09/30/2017 AT 08:37 AM EST DISCLAIMER : THIS IS A VISIT SUMMARY EXTRACTED FROM THE [employer] CHART. IT IS NOT A COPY OF THE [employer] PROGRESS NOTE. MTDD
== END ==
LOC: M PAIN 14:15
PROVIDERS: ATTEND Nurse Practitioner Family
DX: M79.1 Myalgia (principal); M47.812 Spondylosis without myelopathy or radiculopathy, cervical region; G43.109 Migraine with aura, not intractable, without status migrainosus; M54.5 Low back pain; F17.210 Nicotine dependence, cigarettes, uncomplicated; Z79.891 Long term (current) use of opiate analgesic; Z79.899 Other long term (current) drug therapy

== ENCOUNTER → 2017-09-22 | Outpatient (CLI) | payer OTHER ==
--- NOTE | 2017-10-07 00:02 | ECWPNPC ---
PATIENT NAME: CARLITO HUA : 1970 GENDER: MALE VISIT DATE: 09/22/2017 DISCHARGE DATE: 09/22/17 1202 VISIT LOCKED DATE TIME: PHYSICIAN: SHELIA VILLASENOR RESOURCE: SHELIA VILLASENOR REASON FOR APPOINTMENT 1. LOW BACK AND CERVICAL AREA PAIN HISTORY OF PRESENT ILLNESS GENERAL: 47 YEAR OLD MALE PATIENT WITH HISTORY OF CHRONIC LOW BACK AND NECK PAIN. PATIENT DESCRIBES THE PAIN ACHING, SHARP, TENDER, SORE AND HAVING IT ALL THE TIME WITH THE PAIN SCORE OF 7/10. PATIENT IS CURRENTLY USING OXYCODONE, BACLOFEN, TIZANIDINE, AND AMITRIPTYLINE TO AID IN PAIN RELIEF. PATIENT RECEIVED A CERVICAL EPIDURAL TODAY AND REPORTS HIS NECK FEELING BETTER BUT HIS LOWER BACK IS BECOMING SEVERE. PATIENT DENIES UNEXPLAINABLE WEIGHT LOSS, FEVER, CHILLS, NEW CHANGES ON HIS URINARY OR BOWEL CONTROL. CURRENT MEDICATIONS TAKING VIAGRA 100 MG TABLET 1 CAP(S) ORALLY DIRECTED TAKING AMITRIPTYLINE HCL 150 MG TABLET 1 TABLET ORALLY ONCE A DAY TAKING OXYCODONE HCL 5 MG TABLET 1 TABLET ORALLY DAILY TAKING BACLOFEN 20 MG TABLET 2 TABLET WITH FOOD OR MILK ORALLY EVERY 8 HRS TAKING RIBOFLAVIN 100 MG TABLET 2 TABLET WITH A MEAL ORALLY TWICE A DAY TAKING MAGNESIUM 400 MG CAPSULE ORALLY TWICE DAILY TAKING TOPIRAMATE 100 MG TABLET 1 TABLET ORALLY NIGHTLY TAKING ATORVASTATIN CALCIUM 80 MG TABLET 1 TABLET ORALLY ONCE A DAY TAKING TOPIRAMATE 50 MG TABLET 1 TABLET ORALLY IN MORNING TAKING TIZANIDINE HCL 4 MG TABLET 1 TABLET NEEDED ORALLY BID PRN SEVERE MUSCLE SPASMS TAKING NICOTINE POLACRILEX 4 MG LOZENGE 1 LOZENGE NEEDED MOUTH/THROAT TWICE A DAY MEDICATION LIST REVIEWED AND RECONCILED WITH THE PATIENT PAST MEDICAL HISTORY DEGENERATIVE DISC DISEASE ED ANXIETY, PTSD HEADACHES 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 SOCIAL HISTORY GENERAL: TOBACCO USE ARE YOU A:FORMER SMOKER FORMER SMOKER, USING NICOTINE TABS NOW ALCOHOL SCREENING DID YOU HAVE A DRINK CONTAINING ALCOHOL IN THE PAST YEAR?NO POINTS0 INTERPRETATIONNEGATIVE RECREATIONAL DRUG USE DRUG USE?NO CAFFEINE CAFFEINE USE?YES HOW OFTEN AND HOW MUCH? HAS ONE CUB OF COFFEE DAILY CHRISTIANITY [id number] NONE LEARNING BARRIERS / SPECIAL NEEDS BARRIERS TO LEARNING?NO HEARING IMPAIRED?YES : SLIGHT HEARING IMPAIRED VISION IMPAIRED?YES : CORRECTIVE LENSES READINESS TO LEARN?YES LEARNING PREFERENCES?NO EMOTIONAL BARRIERS?NO SPECIAL DEVICES?NO INSURANCE ACCOUNT MANAGER NEEDED?NO PSYCHOLOGICAL HX TREATMENTYES HOW OFTEN AND HOW MUCH? MONTHLY AND WEEKLY PAIN CLINIC PFS, CLERGY, PUBLIC HEALTH REFERRALS PFS REFERRAL NEEDED?NO CLERGY REFERRAL NEEDED?NO PUBLIC HEALTH REFERRAL NEEDED?NO WAS THE PROVIDER NOTIFIED OF ANY PERTINENT INFO?NO HAS THE PATIENT BEEN EDUCATED REGARDING HIS/HER PLAN OF CARE?YES HAS THE PATIENT BEEN EDUCATED REGARDING PAIN, THE RISK FOR PAIN, THE IMPORTANCE OF EFFECTIVE PAIN MANAGEMENT, AND THE PAIN ASSESSMENT PROCESS?YES PATIENT: ____. ADVANCE DIRECTIVES HEALTH CARE PROXY?NO WOULD YOU LIKE MORE INFORMATION?NO VITAL SIGNS WT 230.0 LBS, HT 68 IN, BMI 34.97 INDEX, BP 135/85 MM HG, HR 90 /MIN, RR 18 /MIN, TEMP 98.7 F, OXYGEN SAT % 96%, NA INITIALS TL 1124, REVIEWED BY: CONNER. EXAMINATION GENERAL: PATIENT IS ALERT O X 3 AND COOPERATIVE. TENDERNESS IN THE CERVICAL AREA AND PARASPINAL MUSCLE GROUP. DIFFICULTIES WITH EXTENDING THE NECK. TENDERNESS IN THE LOWER BACK AND PARASPINAL MUSCLE GROUP. DIFFICULTIES STANDING. LIMPING FROM RIGHT LEG. RIGHT LEG IS WEAKER THEN THE LEFT AT EXTENSION AND FLEXION. MRI OF THE LUMBAR SPINE DONE ON 03/10/2017 SHOWS MILD DEGENERATIVE DISC DISEASE ALONG WITH MULTIPLE DISC BULGES. MRI OF THE CERVICAL SPINE DONE ON 09/18/15 SHOWS MULTIPLE DISC BULGES AND FACET ARTHROPATHY. 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 HUA'S PAIN MANAGEMENT CASE. AT THIS TIME THE PATIENT WILL CONTINUE WITH THE SAME MEDICATION REGIME BEFORE. I WOULD LIKE THE PATIENT TO RECEIVE A CERVICAL SOFT COLLAR, PATIENT WAS ADVISED TO WEAR THE COLLAR THE LEAST AMOUNT OF TIME POSSIBLE AND ONLY AT NIGHT. WE DISCUSSED THE ISSUE OF USING THE COLLAR AND LOSING MUSCLE DUE TO IT AND PATIENT IS AWARE. INSTRUCTIONS WERE GIVEN, QUESTIONS WERE ANSWERED, PATIENT REPORTS UNDERSTANDING AND AGREES WITH THE PLAN. IBOBBY, DOCUMENTED THE ABOVE INFORMATION ACTING A SCRIBE FOR DR. VILLASENOR. I HAVE REVIEWED THE ABOVE DOCUMENT, WRITTEN BY BOBBY GONGORA AND I VERIFY THAT IT IS ACCURATE. PROCEDURE CODES FA211 ESTABILISHED PATIENT [facility] CHARGE G8427 DOC MEDS VERIFIED W/PT OR RE G8730 PAIN ASSESS POS TOOL F/U PLAN DOC DISPOSITION & COMMUNICATION FOLLOW UP 3 WEEKS ELECTRONICALLY SIGNED BY SHELIA VILLASENOR MD ON 10/06/2017 AT 06:21 PM EST DISCLAIMER : THIS IS A VISIT SUMMARY EXTRACTED FROM THE [employer] CHART. IT IS NOT A COPY OF THE [employer] PROGRESS NOTE. MTDD
== END ==
LOC: M PAIN 10:30
PROVIDERS: ATTEND Anesthesiology
DX: M47.812 Spondylosis without myelopathy or radiculopathy, cervical region (principal); M47.816 Spondylosis without myelopathy or radiculopathy, lumbar region; M47.817 Spondylosis without myelopathy or radiculopathy, lumbosacral region; G89.29 Other chronic pain; Z79.899 Other long term (current) drug therapy; Z79.891 Long term (current) use of opiate analgesic; Z87.891 Personal history of nicotine dependence

== ENCOUNTER → 2017-09-22 | Outpatient (CLI) | payer OTHER ==
[~2017-09-22] MED LIST changes: +ISOVUE-M 300 61% 15ML VIAL (Q9967) As Ordered ONE; +LIDOCAINE 1% SDV INJ 30 ML VIAL As Ordered ONE; +diazePAM 5 MG TAB As Ordered ONE; +methylPREDNISolone SUSP 40 MG/ML (DEPO-medrol) VIAL (J1030) As Ordered ONE; +oxyCODONE 5MG TAB As Ordered ONE
--- NOTE | 2017-09-22 13:21 | REP ---
Cervical spine: Two views. History: Cervical epidural block for pain. 33 seconds of fluoroscopy time is reported. Findings: A sequence of two last image hold fluoroscopic spot radiographs of the cervicothoracic junction document needle position and contrast injection associated with cervical facet injection procedure. Signed by Jv Cagle MD 09/22/2017 01:13 P
--- NOTE | 2017-10-07 00:49 | ECWPNPC ---
PATIENT NAME: CARLITO HUA : 1970 GENDER: MALE VISIT DATE: 09/22/2017 DISCHARGE DATE: 09/22/17 1115 VISIT LOCKED DATE TIME: PHYSICIAN: SHELIA VILLASENOR RESOURCE: SHELIA VILLASENOR REASON FOR APPOINTMENT 1. CERVICAL EPIDURAL HISTORY OF PRESENT ILLNESS HISTORY OF PRESENT ILLNESS: PAIN THE PATIENT DESCRIBES THE PAIN... FALL RISK SCREENING: SCREENING :NO FALLS IN THE PAST YEAR CURRENT MEDICATIONS TAKING VIAGRA 100 MG TABLET 1 CAP(S) ORALLY DIRECTED, NOTES: NONE TAKING AMITRIPTYLINE HCL 150 MG TABLET 1 TABLET ORALLY ONCE A DAY, NOTES: 09-21-172099 TAKING OXYCODONE HCL 5 MG TABLET 1 TABLET ORALLY DAILY, NOTES: 09-21-172099 TAKING BACLOFEN 20 MG TABLET 2 TABLET WITH FOOD OR MILK ORALLY EVERY 8 HRS, NOTES: 09-21-172099 TAKING RIBOFLAVIN 100 MG TABLET 2 TABLET WITH A MEAL ORALLY TWICE A DAY, NOTES: 09-21-17 AM TAKING MAGNESIUM 400 MG CAPSULE ORALLY TWICE DAILY, NOTES: 09-21-17 AM TAKING TOPIRAMATE 100 MG TABLET 1 TABLET ORALLY NIGHTLY, NOTES: 09-21-172099 TAKING ATORVASTATIN CALCIUM 80 MG TABLET 1 TABLET ORALLY ONCE A DAY, NOTES: 09-21-172099 TAKING TOPIRAMATE 50 MG TABLET 1 TABLET ORALLY IN MORNING, NOTES: 09-21-17 AM TAKING TIZANIDINE HCL 4 MG TABLET 1 TABLET NEEDED ORALLY BID PRN SEVERE MUSCLE SPASMS, NOTES: 09-21-172099 TAKING NICOTINE POLACRILEX 4 MG LOZENGE 1 LOZENGE NEEDED MOUTH/THROAT TWICE A DAY, NOTES: 09-22-17 0600 DISCONTINUED NICOTINE 14 MG/24HR PATCH 24 HOUR 1 PATCH TO SKIN TRANSDERMAL ONCE A DAY MEDICATION LIST REVIEWED AND RECONCILED WITH THE PATIENT PAST MEDICAL HISTORY DEGENERATIVE DISC DISEASE ED ANXIETY, PTSD HEADACHES 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 SOCIAL HISTORY GENERAL: TOBACCO USE ARE YOU A:FORMER SMOKER FORMER SMOKER, USING NICOTINE TABS NOW ALCOHOL SCREENING DID YOU HAVE A DRINK CONTAINING ALCOHOL IN THE PAST YEAR?NO POINTS0 INTERPRETATIONNEGATIVE RECREATIONAL DRUG USE DRUG USE?NO CAFFEINE CAFFEINE USE?YES HOW OFTEN AND HOW MUCH? HAS ONE CUB OF COFFEE DAILY [id number] NONE LEARNING BARRIERS / SPECIAL NEEDS BARRIERS TO LEARNING?NO HEARING IMPAIRED?YES : SLIGHT HEARING IMPAIRED VISION IMPAIRED?YES : CORRECTIVE LENSES READINESS TO LEARN?YES LEARNING PREFERENCES?NO EMOTIONAL BARRIERS?NO SPECIAL DEVICES?NO PATHOLOGY SECRETARY NEEDED?NO PSYCHOLOGICAL HX TREATMENTYES HOW OFTEN AND HOW MUCH? MONTHLY AND WEEKLY PAIN CLINIC PFS, CLERGY, PUBLIC HEALTH REFERRALS PFS REFERRAL NEEDED?NO CLERGY REFERRAL NEEDED?NO PUBLIC HEALTH REFERRAL NEEDED?NO WAS THE PROVIDER NOTIFIED OF ANY PERTINENT INFO?NO HAS THE PATIENT BEEN EDUCATED REGARDING HIS/HER PLAN OF CARE?YES HAS THE PATIENT BEEN EDUCATED REGARDING PAIN, THE RISK FOR PAIN, THE IMPORTANCE OF EFFECTIVE PAIN MANAGEMENT, AND THE PAIN ASSESSMENT PROCESS?YES PATIENT: ____. ADVANCE DIRECTIVES HEALTH CARE PROXY?NO WOULD YOU LIKE MORE INFORMATION?NO REVIEW OF SYSTEMS REVIEWED BY: PROVIDER: . CONSTITUTIONAL: ANY CHANGE IN YOUR MEDICAL CONDITION? NO . CHILLS NO . FEVER NO . INFECTION: DO YOU HAVE NEW INFECTIONS? NO . DO YOU HAVE HISTORY OF MRSA? NO . MUSCULOSKELETAL: ANY NEW PATTERNS OF PAIN OR NUMBNESS? NO . GASTROENTEROLOGY: ANY NEW CHANGE IN BOWEL CONTROL? NO . GENITOURINARY: ANY NEW CHANGE IN BLADDER CONTROL? NO . IS THERE A CHANCE YOU COULD BE ? NO . HEMATOLOGY/LYMPH: DO YOU TAKE ANY BLOOD THINNERS? (FOR EXAMPLE- COUMADIN, PLAVIX, AGGRENOX, PLATEL, PRADAXA, OR XARELTO) NO . WHEN WAS YOUR LAST DOSE? DATE: TIME: . NEUROLOGY: HAVE YOU FALLEN IN THE PAST 6 MONTHS? NO . ANY NEW EXTREMITY NUMBNESS OR WEAKNESS? NO . CARDIOLOGY: DO YOU HAVE A PACEMAKER OR DEFIBRILLATOR? NO . RESPIRATORY: HAVE YOU BEEN SICK IN THE PAST WEEK? NO . FEVER NO . FLU LIKE SYMPTOMS? NO . COUGH NO . INTEGUMENTARY: DO YOU HAVE ANY RASHES OR OPEN SORES? NO . ALLERGIC/IMMUNO: ARE YOU ALLERGIC TO SHELLFISH OR IV DYE? NO . ANY NEW ALLERGIES? NO . PSYCHIATRIC: DO YOU HAVE THOUGHTS OF HURTING YOURSELF OR SOMEONE ELSE? NO . ARE YOU ABUSED, NEGLECTED, OR IN AN UNSAFE ENVIRONMENT? NO . ENDOCRINOLOGY: ARE YOU DIABETIC? NO . OTHER: DO YOU NEED ANY PRESCRIPTIONS? NO . IF YES, PLEASE LIST: ____ . ANY NEW PROBLEMS WITH YOUR MEDICATIONS? NO . WHEN DID YOU LAST EAT? 11-19-17 2330 . WHEN DID YOU LAST DRINK? 09-22-17 0600 . WHAT DID YOU LAST DRINK? WATER . NAME OF PERSON DRIVING YOU HOME? JAYLAN . DO YOU HAVE ANY OTHER QUESTIONS OR CONCERNS NO . VITAL SIGNS WT 230 LBS, HT 68 IN, BMI 34.97 INDEX, BP 135/85 MM HG, HR 90 /MIN, RR 18 /MIN, TEMP 98.7 F, OXYGEN SAT % 96%, NA INITIALS SC 08:53, REVIEWED BY: CM. ASSESSMENTS CERVICAL DISC DISORDER WITH RADICULOPATHY OF CERVICOTHORACIC REGION - M50.13 (PRIMARY) PROCEDURES PN CERVICAL EPIDURAL PRE PROCEDURE DIAGNOSIS CERVICAL DISC DISORDER WITH RADICULOPATHY POST PROCEDURE DIAGNOSIS CERVICAL DISC DISORDER WITH RADICULOPATHY PROCEDURE CERVICAL EPIDURAL STEROID INJECTION UNDER FLUOROSCOPIC GUIDANCE SURGEON DR. SHELIA VILLASENOR GRAPE GROWER NONE ANESTHESIA LOCAL PRE PROCEDURE NOTE THE PATIENT HAS A HISTORY OF CHRONIC CERVICAL PAIN. I EVALUATE THE PATIENT AND REVIEWED THE CHART. I WENT OVER THE RISKS, ALTERNATIVES, AND BENEFITS ASSOCIATED WITH THIS PROCEDURE. THE PATIENT WOULD LIKE TO PROCEED AND GIVE CONSENT TO PERFORMED THE PROCEDURE. THE PATIENT DENIES UNEXPLAINABLE WEIGHT LOSS, FEVER, CHILLS, OR NEW CHANGES IN URINARY OR BOWEL CONTROL DESCRIPTION OF PROCEDURE THE PATIENT WAS BROUGHT TO THE PROCEDURE ROOM AND PLACED IN THE PRONE POSITION. THE CERVICOTHORACIC AREA WAS CLEANED WITH BETADINE SOLUTION AND DRAPED ASEPTICALLY. THE PROCEDURE WAS DONE UNDER STERILE CONDITIONS. I CHECKED LATERALITY AND THE LEVEL WHERE THE PROCEDURE WAS GOING TO BE PERFORMED WITH THE PATIENT AND THE SUPPORTING STAFF AT THE MOMENT OF THE TIME OUT IN THE PROCEDURE ROOM. UNDER FLUOROSCOPIC GUIDANCE, THE TARGET WAS SELECTED AT THE INTERLAMINAR LEVEL OF C7-T1. LIDOCAINE WAS USED TO NUMB THE SKIN AND THE SUBCUTANEOUS TISSUE BELOW IT. EPIDURAL TUOHY NEEDLE 17-GAUGE WAS ADVANCED UNDER FLUOROSCOPIC GUIDANCE AND FOLLOWING PATIENT FEEDBACK UNTIL THE EPIDURAL SPACE WAS REACHED 6 CM DEEP INTO THE SKIN BY THE LOSS OF RESISTANCE TECHNIQUE. ISOVUE M DYE 30%, 0.25 ML, WAS INJECTED SHOWING ADEQUATE SPREAD OF THE DYE. THEN, A SOLUTION OF 3 ML OF NORMAL SALINE WITH DEPO-MEDROL 60 MG WAS INJECTED SLOWLY FOLLOWING PATIENT FEEDBACK. THERE WAS NO EVIDENCE OF BLOOD, PARESTHESIA OR CEREBROSPINAL FLUID DURING THE PROCEDURE. THE PATIENT WAS SENT TO THE RECOVERY ROOM. THE PATIENT WAS MOVING THE EXTREMITIES AND DOING WELL. THERE WAS NO COMPLICATION DURING THE PROCEDURE. FLUOROSCOPY TIME WAS 33 SECONDS POST PROCEDURE NOTE THE PATIENT WILL BE SEEN IN A FOLLOW UP IN THE NEXT FEW WEEKS. INSTRUCTIONS WERE GIVEN, QUESTIONS WERE ANSWERED, AND THE PATIENT EXPRESSED UNDERSTANDING AND AGREES WITH THE PLAN. I, BOBBY MILLAN, DOCUMENTED THE ABOVE INFORMATION ACTING A SCRIBE FOR DR. VILLASENOR. I HAVE REVIEWED THE ABOVE DOCUMENT, WRITTEN BY BOBBY WEIRIBSherrill AND I VERIFY THAT IT IS ACCURATE DIAGNOSTIC IMAGING [facility] FLUORO GUIDE SPINE INJECTION (PAIN)[id number] PROCEDURE CODES 30098 CERVICAL/THORACIC W/ IMAGING 6045F RADXPS IN END [id number] PXD DISPOSITION & COMMUNICATION FOLLOW UP 3 WEEKS ELECTRONICALLY SIGNED BY SHELIA VILLASENOR MD ON 10/06/2017 AT 06:28 PM EST DISCLAIMER : THIS IS A VISIT SUMMARY EXTRACTED FROM THE [employer] CHART. IT IS NOT A COPY OF THE [employer] PROGRESS NOTE. MTDD
== END ==
LOC: M PAIN 08:30
PROVIDERS: ATTEND Anesthesiology
DX: G89.29 Other chronic pain (principal); M50.13 Cervical disc disorder with radiculopathy, cervicothoracic region; F41.9 Anxiety disorder, unspecified; F43.10 Post-traumatic stress disorder, unspecified; Z87.891 Personal history of nicotine dependence; Z79.899 Other long term (current) drug therapy
CPT/HCPCS: 62321; J1030; Q9967

== ENCOUNTER → 2017-10-14 | Outpatient (CLI) | payer OTHER | LOC: M PAIN 13:30 | DX: G89.29 Other chronic pain (principal); M47.812 Spondylosis without myelopathy or radiculopathy, cervical region; M47.816 Spondylosis without myelopathy or radiculopathy, lumbar region; M47.817 Spondylosis without myelopathy or radiculopathy, lumbosacral region; M79.1 Myalgia; F41.9 Anxiety disorder, unspecified; F43.10 Post-traumatic stress disorder, unspecified; N52.9 Male erectile dysfunction, unspecified; R51 Headache; H91.90 Unspecified hearing loss, unspecified ear; G25.81 Restless legs syndrome; J44.9 Chronic obstructive pulmonary disease, unspecified; Z99.81 Dependence on supplemental oxygen; Z87.891 Personal history of nicotine dependence; Z79.899 Other long term (current) drug therapy | CPT/HCPCS: G0463 ==

== ENCOUNTER → 2017-11-06 | Outpatient (CLI) | payer OTHER ==
[~2017-11-06] MED LIST changes: -/BACL20TA PO; -/ROPI5TA OR; -ARTHROTEC PO; -BACL10TA2 PO; +BUPIVACAINE HCL 0.25% 10 ML VIAL As Ordered; +BUPIVACAINE HCL 0.25% 30 ML VIAL As Ordered; -CLON0.5T PO; -CLON1TAB PO; -CLONIPINE; -CLONIPINE PO; -COMPOUND CREAM TOP; -DICL13PA TD; -ETOD20CA PO; -IBUP200T2 PO; -IBUP400T OR; -ISOVUE-M 300 61% 15ML VIAL (Q9967) As Ordered ONE; -KLON0.5T PO; -LIDOCAINE 1% SDV INJ 30 ML VIAL As Ordered ONE; -LIPITOR PO; -LODINE PO; -MINI5CAP OR; -MIRT7.5T10 PO; -MULTIVIT PO; -MULTTAB50 PO; -REME15TA PO; -SILD25TA PO; -TIZA4TAB PO; -TRAZ50TA OR; +TRIAMCINOLONE ACETONIDE SUSP 40 MG/ML VIAL (J3301) As Ordered; -TYL RE; -ULTR50TA PO; -VENL100T PO; -VENL37.5 PO; -ZANA4CAP OR; -[UNRECOGNIZED DRUG - OTHER] PO; -[UNRECOGNIZED DRUG - OTHER] TD; +diazePAM 5 MG TAB As Ordered; -diazePAM 5 MG TAB As Ordered ONE; +diphenhydrAMINE 25 MG CAP As Ordered; -methylPREDNISolone SUSP 40 MG/ML (DEPO-medrol) VIAL (J1030) As Ordered ONE; +oxyCODONE 5MG TAB As Ordered; -oxyCODONE 5MG TAB As Ordered ONE
== END ==
LOC: M PAIN 11:45
DX: G89.29 Other chronic pain (principal); M79.1 Myalgia; Z79.899 Other long term (current) drug therapy
CPT/HCPCS: J3301

== ENCOUNTER → 2017-11-24 | Outpatient (CLI) | payer OTHER | LOC: M PAIN 09:00 | DX: M47.812 Spondylosis without myelopathy or radiculopathy, cervical region (principal); M47.816 Spondylosis without myelopathy or radiculopathy, lumbar region; M47.817 Spondylosis without myelopathy or radiculopathy, lumbosacral region; M79.1 Myalgia; Z79.899 Other long term (current) drug therapy; Z87.891 Personal history of nicotine dependence | CPT/HCPCS: G0463 ==

== ENCOUNTER 2017-12-23 07:59 | Day surgery (SDC) | payer OTHER ==
[2017-12-23] MEDS: NS 1,000 ML IV ×3 (08:30)
[2017-12-23] MEDS ORDERED: LIDOCAINE 2% MDV 20 ML VIAL As Ordered ×3 (08:33)
[2017-12-23] MEDS ORDERED: PROPOFOL 200 MG/20 ML VIAL As Ordered ×12 (08:33→09:08)
== END 2017-12-23 10:06 | disposition home or self-care (01) ==
LOC: M OPP 07:59
DX: R10.13 Epigastric pain (principal); R12 Heartburn; K22.8 Other specified diseases of esophagus; K21.0 Gastro-esophageal reflux disease with esophagitis; K44.9 Diaphragmatic hernia without obstruction or gangrene; K31.89 Other diseases of stomach and duodenum; E78.5 Hyperlipidemia, unspecified; M19.90 Unspecified osteoarthritis, unspecified site; F41.9 Anxiety disorder, unspecified; F32.9 Major depressive disorder, single episode, unspecified; G43.909 Migraine, unspecified, not intractable, without status migrainosus; G62.9 Polyneuropathy, unspecified; F43.10 Post-traumatic stress disorder, unspecified; R06.2 Wheezing; J44.9 Chronic obstructive pulmonary disease, unspecified; Z79.899 Other long term (current) drug therapy; Z87.891 Personal history of nicotine dependence
CPT/HCPCS: 43239

== ENCOUNTER → 2018-01-08 | Outpatient (CLI) | payer OTHER ==
[~2018-01-08] MED LIST changes: -BUPIVACAINE HCL 0.25% 10 ML VIAL As Ordered; -BUPIVACAINE HCL 0.25% 30 ML VIAL As Ordered; +ISOVUE-M 300 61% 15ML VIAL (Q9967) As Ordered; +LIDOCAINE 1% SDV INJ 30 ML VIAL As Ordered; -TRIAMCINOLONE ACETONIDE SUSP 40 MG/ML VIAL (J3301) As Ordered; -diphenhydrAMINE 25 MG CAP As Ordered; +methylPREDNISolone SUSP 40 MG/ML (DEPO-medrol) VIAL (J1030) As Ordered
== END ==
LOC: M PAIN 08:45
DX: G89.29 Other chronic pain (principal); M51.16 Intervertebral disc disorders with radiculopathy, lumbar region; F41.9 Anxiety disorder, unspecified; F43.10 Post-traumatic stress disorder, unspecified; R51 Headache; G25.81 Restless legs syndrome; J44.9 Chronic obstructive pulmonary disease, unspecified; Z79.899 Other long term (current) drug therapy
CPT/HCPCS: J1030

== ENCOUNTER → 2018-01-23 | Outpatient (CLI) | payer OTHER | LOC: M PAIN 09:00 | DX: M47.812 Spondylosis without myelopathy or radiculopathy, cervical region (principal); M47.816 Spondylosis without myelopathy or radiculopathy, lumbar region; M47.817 Spondylosis without myelopathy or radiculopathy, lumbosacral region; M79.1 Myalgia; F41.9 Anxiety disorder, unspecified; F43.10 Post-traumatic stress disorder, unspecified; G43.109 Migraine with aura, not intractable, without status migrainosus; G25.81 Restless legs syndrome; J44.9 Chronic obstructive pulmonary disease, unspecified; Z79.899 Other long term (current) drug therapy; Z87.891 Personal history of nicotine dependence | CPT/HCPCS: G0463 ==

== ENCOUNTER → 2018-02-12 | Outpatient (CLI) | payer OTHER ==
[~2018-02-12] MED LIST changes: +BUPIVACAINE HCL 0.25% 30 ML VIAL As Ordered; +TRIAMCINOLONE ACETONIDE SUSP 40 MG/ML VIAL (J3301) As Ordered; -methylPREDNISolone SUSP 40 MG/ML (DEPO-medrol) VIAL (J1030) As Ordered
== END ==
LOC: M PAIN 08:45
DX: G89.29 Other chronic pain (principal); M47.812 Spondylosis without myelopathy or radiculopathy, cervical region; F41.9 Anxiety disorder, unspecified; F43.10 Post-traumatic stress disorder, unspecified; R51 Headache; G25.81 Restless legs syndrome; J44.9 Chronic obstructive pulmonary disease, unspecified; K22.719 Barrett's esophagus with dysplasia, unspecified; Z79.899 Other long term (current) drug therapy; Z87.891 Personal history of nicotine dependence; Z96.20 Presence of otological and audiological implant, unspecified
CPT/HCPCS: J3301

== ENCOUNTER → 2018-02-26 | Outpatient (CLI) | payer OTHER | LOC: M PAIN 08:45 | DX: M47.812 Spondylosis without myelopathy or radiculopathy, cervical region (principal); M47.816 Spondylosis without myelopathy or radiculopathy, lumbar region; M47.817 Spondylosis without myelopathy or radiculopathy, lumbosacral region; M79.1 Myalgia; G43.909 Migraine, unspecified, not intractable, without status migrainosus; F43.10 Post-traumatic stress disorder, unspecified; N52.9 Male erectile dysfunction, unspecified; F41.9 Anxiety disorder, unspecified; Z79.899 Other long term (current) drug therapy; Z87.891 Personal history of nicotine dependence | CPT/HCPCS: G0463 ==

== ENCOUNTER → 2018-03-11 | Outpatient (CLI) | payer OTHER | LOC: M PAIN 08:30 | DX: G89.29 Other chronic pain (principal); M47.816 Spondylosis without myelopathy or radiculopathy, lumbar region; M47.817 Spondylosis without myelopathy or radiculopathy, lumbosacral region; N52.9 Male erectile dysfunction, unspecified; F41.9 Anxiety disorder, unspecified; F43.10 Post-traumatic stress disorder, unspecified; R51 Headache; G25.81 Restless legs syndrome; J44.9 Chronic obstructive pulmonary disease, unspecified; K22.70 Barrett's esophagus without dysplasia; Z79.899 Other long term (current) drug therapy; Z87.891 Personal history of nicotine dependence | CPT/HCPCS: J3301 ==

== ENCOUNTER → 2018-05-19 | Outpatient (CLI) | payer OTHER | LOC: M PAIN 13:45 | DX: M47.812 Spondylosis without myelopathy or radiculopathy, cervical region (principal); M47.816 Spondylosis without myelopathy or radiculopathy, lumbar region; M47.817 Spondylosis without myelopathy or radiculopathy, lumbosacral region; M79.1 Myalgia; I10 Essential (primary) hypertension; E78.5 Hyperlipidemia, unspecified; K22.70 Barrett's esophagus without dysplasia; R51 Headache; Z79.899 Other long term (current) drug therapy; Z88.8 Allergy status to other drugs, medicaments and biological substances | CPT/HCPCS: G0463 ==

== ENCOUNTER → 2018-06-09 | Outpatient (CLI) | payer OTHER | LOC: M PAIN 10:00 | DX: G89.29 Other chronic pain (principal); M47.812 Spondylosis without myelopathy or radiculopathy, cervical region; F41.9 Anxiety disorder, unspecified; F43.10 Post-traumatic stress disorder, unspecified; G25.81 Restless legs syndrome; J44.9 Chronic obstructive pulmonary disease, unspecified; K22.70 Barrett's esophagus without dysplasia; Z79.899 Other long term (current) drug therapy; Z88.8 Allergy status to other drugs, medicaments and biological substances; Z87.891 Personal history of nicotine dependence | CPT/HCPCS: J3301 ==

== ENCOUNTER → 2018-06-25 | Outpatient (CLI) | payer OTHER | LOC: M PAIN 08:45 | DX: M47.812 Spondylosis without myelopathy or radiculopathy, cervical region (principal); M47.816 Spondylosis without myelopathy or radiculopathy, lumbar region; M47.817 Spondylosis without myelopathy or radiculopathy, lumbosacral region; M79.1 Myalgia; F41.9 Anxiety disorder, unspecified; F43.10 Post-traumatic stress disorder, unspecified; G25.81 Restless legs syndrome; J44.9 Chronic obstructive pulmonary disease, unspecified; K22.70 Barrett's esophagus without dysplasia; Z79.899 Other long term (current) drug therapy; Z88.8 Allergy status to other drugs, medicaments and biological substances; Z87.891 Personal history of nicotine dependence | CPT/HCPCS: G0463 ==

== ENCOUNTER → 2018-07-08 | Outpatient (CLI) | payer OTHER ==
[~2018-07-08] MED LIST changes: +BUPIVACAINE HCL 0.25% 10 ML VIAL As Ordered; -ISOVUE-M 300 61% 15ML VIAL (Q9967) As Ordered; -LIDOCAINE 1% SDV INJ 30 ML VIAL As Ordered
== END ==
LOC: M PAIN 11:45
DX: G89.29 Other chronic pain (principal); M79.1 Myalgia; M54.5 Low back pain; F41.9 Anxiety disorder, unspecified; F43.10 Post-traumatic stress disorder, unspecified; G25.81 Restless legs syndrome; J44.9 Chronic obstructive pulmonary disease, unspecified; K22.70 Barrett's esophagus without dysplasia; F17.200 Nicotine dependence, unspecified, uncomplicated; Z79.899 Other long term (current) drug therapy; Z88.8 Allergy status to other drugs, medicaments and biological substances
CPT/HCPCS: J3301

== ENCOUNTER → 2018-08-31 | Outpatient (CLI) | payer OTHER | LOC: M PAIN 09:15 | DX: M47.812 Spondylosis without myelopathy or radiculopathy, cervical region (principal); M47.816 Spondylosis without myelopathy or radiculopathy, lumbar region; M47.817 Spondylosis without myelopathy or radiculopathy, lumbosacral region; M79.18 Myalgia, other site; F41.9 Anxiety disorder, unspecified; F43.10 Post-traumatic stress disorder, unspecified; G25.81 Restless legs syndrome; J44.9 Chronic obstructive pulmonary disease, unspecified; K22.70 Barrett's esophagus without dysplasia; Z72.0 Tobacco use; Z79.899 Other long term (current) drug therapy; Z88.8 Allergy status to other drugs, medicaments and biological substances | CPT/HCPCS: G0463 ==

== ENCOUNTER → 2018-09-28 | Outpatient (CLI) | payer OTHER ==
[~2018-09-28] MED LIST changes: -BUPIVACAINE HCL 0.25% 10 ML VIAL As Ordered; +ISOVUE-M 300 61% 15ML VIAL (Q9967) As Ordered; +LIDOCAINE 1% SDV INJ 30 ML VIAL As Ordered
== END ==
LOC: M PAIN 08:30
DX: G89.29 Other chronic pain (principal)
CPT/HCPCS: J3301

== ENCOUNTER → 2018-10-08 | Outpatient (CLI) | payer OTHER | LOC: M PAIN 13:15 | DX: M47.817 Spondylosis without myelopathy or radiculopathy, lumbosacral region (principal); J44.9 Chronic obstructive pulmonary disease, unspecified; K22.70 Barrett's esophagus without dysplasia; G25.81 Restless legs syndrome; Z72.0 Tobacco use; F41.9 Anxiety disorder, unspecified; F43.10 Post-traumatic stress disorder, unspecified; Z79.899 Other long term (current) drug therapy; Z88.8 Allergy status to other drugs, medicaments and biological substances | CPT/HCPCS: G0463 ==

== ENCOUNTER → 2018-11-10 | Outpatient (CLI) | payer OTHER ==
[~2018-11-10] MED LIST changes: +/BACL20TA PO; +/ROPI5TA OR; +ALL10TAB28 PO; +AMIT100TA PO; +ARTHROTEC PO; +ATEN25TA PO; +BACL10TA2 PO; +BUDE180INH INH; -BUPIVACAINE HCL 0.25% 30 ML VIAL As Ordered; +BUPIVACAINE HCL 0.25% 30 ML VIAL As Ordered ONE; +BUSP10TA PO; +CLON0.5T PO; +CLON1TAB PO; +CLONIPINE; +CLONIPINE PO; +COMPOUND CREAM TOP; +DICL13PA TD; +ETOD20CA PO; +FLUTISP; +IBUP200T2 PO; +IBUP400T OR; -ISOVUE-M 300 61% 15ML VIAL (Q9967) As Ordered; +ISOVUE-M 300 61% 15ML VIAL (Q9967) As Ordered ONE; +K-TA10TA PO; +KLON0.5T PO; -LIDOCAINE 1% SDV INJ 30 ML VIAL As Ordered; +LIDOCAINE 1% SDV INJ 30 ML VIAL As Ordered ONE; +LIPI80TA PO; +LIPITOR PO; +LODINE PO; +MAGN400T5 PO; +MINI5CAP OR; +MIRT7.5T10 PO; +MULTIVIT PO; +MULTTAB50 PO; +NICO2LOZ MT; +OMEP40CA2 PO; +OXYC15TA76 PO; +PRAZ5CAP PO; +PROAAER10 INH; +PROC5TA PO; +REME15TA PO; +RIBO100C PO; +SILD25TA PO; +SUCRPOW; +TIZA4CAP PO; +TIZA4TAB PO; +TOPA50TA8 PO; +TRAZ50TA OR; -TRIAMCINOLONE ACETONIDE SUSP 40 MG/ML VIAL (J3301) As Ordered; +TRIAMCINOLONE ACETONIDE SUSP 40 MG/ML VIAL (J3301) As Ordered ONE; +TYL RE; +ULTR50TA PO; +VENL100T PO; +VENL37.5 PO; +VITATAB11 PO; +ZANA4CAP OR; +[UNRECOGNIZED DRUG - OTHER]; +[UNRECOGNIZED DRUG - OTHER] PO; +[UNRECOGNIZED DRUG - OTHER] TD; -diazePAM 5 MG TAB As Ordered; +diazePAM 5 MG TAB As Ordered ONE; -oxyCODONE 5MG TAB As Ordered; +oxyCODONE 5MG TAB As Ordered ONE
--- NOTE | 2018-11-10 13:18 | REP ---
Partial lumbar spine series: Four views . History: Injection procedure for pain. 23 seconds of fluoroscopy time is reported. Findings: A sequence of four fluoroscopically obtained last image hold procedural spot radiographs of the lumbar spine document needle position and contrast injection associated with injection procedure. Electronically Signed by Jv Cagle MD 11/10/2018 01:09 P
--- NOTE | 2018-11-25 01:17 | ECWPNPC ---
PATIENT NAME: CARLITO HUA : 1970 GENDER: MALE VISIT DATE: 11/10/2018 DISCHARGE DATE: 11/10/18 1101 VISIT LOCKED DATE TIME: PHYSICIAN: SHELIA VILLASENOR MD RESOURCE: SHELIA VILLASENOR MD REASON FOR APPOINTMENT 1. THER FACET BLOCK PER LB TE 10/29/18 HISTORY OF PRESENT ILLNESS HISTORY OF PRESENT ILLNESS: PAIN THE PATIENT DESCRIBES THE PAIN... FALL RISK SCREENING: SCREENING :NO FALLS IN THE PAST YEAR CURRENT MEDICATIONS TAKING TIZANIDINE HCL 4 MG TABLET 1 TABLET NEEDED ORALLY BID, NOTES: 11/09/181999 TAKING BACLOFEN 20 MG TABLET 2 TABLET WITH FOOD OR MILK ORALLY EVERY 8 HRS, NOTES: 11/09/181999 TAKING RIBOFLAVIN 100 MG TABLET 2 TABLET WITH A MEAL ORALLY TWICE A DAY, NOTES: 11/09/181199 TAKING MAGNESIUM 400 MG CAPSULE ORALLY TWICE DAILY, NOTES: 11/09/181199 TAKING TOPIRAMATE 100 MG TABLET 1 TABLET ORALLY NIGHTLY, NOTES: 11/09/181999 TAKING TOPIRAMATE 50 MG TABLET 1 TABLET ORALLY IN MORNING, NOTES: 11/09/18599 TAKING POTASSIUM CHLORIDE 10 MEQ CAPSULE EXTENDED RELEASE 1 CAPSULE WITH FOOD ORALLY ONCE A DAY, NOTES: 11/09/181999 TAKING ATENOLOL 25 MG TABLET 1 TABLET ORALLY ONCE A DAY, NOTES: 11/09/18599 TAKING FISH OIL 1000 MG CAPSULE 1 CAPSULE ORALLY TID, NOTES: 11/09/181999 TAKING VITAMIN B COMPLEX - TABLET ORALLY , NOTES: 11/09/18599 TAKING CRESTOR 40 MG TABLET 1 TABLET ORALLY ONCE A DAY, NOTES: 11/09/181199 TAKING OMEPRAZOLE 10 MG CAPSULE DELAYED RELEASE 1 CAPSULE ORALLY BID, NOTES: 11/09/181999 TAKING BOTOX 200 UNIT SOLUTION RECONSTITUTED INJECTION , NOTES: AUGUST OR SEPTEMBER TAKING DULOXETINE HCL 30 MG CAPSULE DELAYED RELEASE PARTICLES 1 CAPSULE ORALLY ONCE A DAY, NOTES: 11/09/181199 TAKING COMBIVENT 120-20 MCG/ACT AEROSOL 2 PUFFS INHALATION FOUR TIMES A DAY, NOTES: 11/09/181999 TAKING SYMBICORT 80-4.5 MCG/ACT AEROSOL 2 PUFFS INHALATION TWICE A DAY, NOTES: 11/10/18 TAKING VIAGRA 100 MG TABLET 1 CAP(S) ORALLY DIRECTED, NOTES: NONE RECENTLY MEDICATION LIST REVIEWED AND RECONCILED WITH THE PATIENT PAST MEDICAL HISTORY DEGENERATIVE DISC DISEASE ED ANXIETY, PTSD HEADACHES 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 SOCIAL HISTORY GENERAL: TOBACCO USE ARE YOU A:CURRENT SMOKER ARE YOU INTERESTED IN QUITTING?READY TO QUIT CURRENTLY TRYING TO QUIT, USING NICOTINE LOZENGES AND PATCHES AND IS CUTTING BACK COUNSELED THE PATIENT ON TOBACCO USE, CESSATION [id number]/08/2019 PATIENT COUNSELED ON THE DANGERS OF TOBACCO USE AND URGED TO QUIT:11/10/2018 ALCOHOL SCREENING DID YOU HAVE A DRINK CONTAINING ALCOHOL IN THE PAST YEAR?NO POINTS0 INTERPRETATIONNEGATIVE RECREATIONAL DRUG USE DRUG USE?NO CAFFEINE CAFFEINE USE?YES HOW OFTEN AND HOW MUCH? HAS 1-2 CUPS OF COFFEE DAILY [employer] [id number] NONE LANGUAGE LANGUAGES SPOKEN:CAMBODIAN LEARNING BARRIERS / SPECIAL NEEDS BARRIERS TO LEARNING?NO HEARING IMPAIRED?YES : SLIGHT HEARING IMPAIRED VISION IMPAIRED?YES : CORRECTIVE LENSES READINESS TO LEARN?YES LEARNING PREFERENCES?NO EMOTIONAL BARRIERS?NO SPECIAL DEVICES?NO RN PRACTITIONER NEEDED?NO DIET: REGULAR. PAIN CLINIC PFS, CLERGY, PUBLIC HEALTH REFERRALS PFS REFERRAL NEEDED?NO CLERGY REFERRAL NEEDED?NO PUBLIC HEALTH REFERRAL NEEDED?NO WAS THE PROVIDER NOTIFIED OF ANY PERTINENT INFO?YES HAS THE PATIENT BEEN EDUCATED REGARDING HIS/HER PLAN OF CARE?YES HAS THE PATIENT BEEN EDUCATED REGARDING PAIN, THE RISK FOR PAIN, THE IMPORTANCE OF EFFECTIVE PAIN MANAGEMENT, AND THE PAIN ASSESSMENT PROCESS?YES ADVANCE DIRECTIVE ADVANCE DIRECTIVE DISCUSSED WITH PATIENT:YES PT DECLINES HCP INFORMATION. REVIEWED 02/26/18 0920 BVREVIEWED WITH PT 06/25/18 0915 LASREVIEWED WITH PATIENT 08/31/18 1001 JSREVIEWED WITH PT 09/28/18 0903 BVREVIEWED WITH PATIENT 11/10/18 0926 JS. HOSPITALIZATION/MAJOR DIAGNOSTIC PROCEDURE SLEEP STUDY MENTAL HEALTH 2011 REVIEW OF SYSTEMS REVIEWED BY: PROVIDER: . CONSTITUTIONAL: ANY CHANGE IN YOUR MEDICAL CONDITION? NO . CHILLS NO . FEVER NO . INFECTION: DO YOU HAVE NEW INFECTIONS? NO . DO YOU HAVE HISTORY OF MRSA? NO . MUSCULOSKELETAL: ANY NEW PATTERNS OF PAIN OR NUMBNESS? YES, PATIENT STATES ABOUT A WEEK AGO HE WOKE UP AND COULDN'T MOVE FOR A FEW DAYS DUE TO THE PAIN, SEEN AT URGENT CARE, HAS IMPROVED SOME SINCE . GASTROENTEROLOGY: ANY NEW CHANGE IN BOWEL CONTROL? NO . GENITOURINARY: ANY NEW CHANGE IN BLADDER CONTROL? NO . IS THERE A CHANCE YOU COULD BE ? NO . HEMATOLOGY/LYMPH: DO YOU TAKE ANY BLOOD THINNERS? (FOR EXAMPLE- COUMADIN, PLAVIX, AGGRENOX, PLATEL, PRADAXA, OR XARELTO) NO . WHEN WAS YOUR LAST DOSE? DATE: TIME: . NEUROLOGY: HAVE YOU FALLEN IN THE PAST 6 MONTHS? NO . ANY NEW EXTREMITY NUMBNESS OR WEAKNESS? NO . CARDIOLOGY: DO YOU HAVE A PACEMAKER OR DEFIBRILLATOR? NO . RESPIRATORY: HAVE YOU BEEN SICK IN THE PAST WEEK? NO . FEVER NO . FLU LIKE SYMPTOMS? NO . COUGH NO . INTEGUMENTARY: DO YOU HAVE ANY RASHES OR OPEN SORES? NO . ALLERGIC/IMMUNO: ARE YOU ALLERGIC TO SHELLFISH OR IV DYE? NO . ANY NEW ALLERGIES? NO . PSYCHIATRIC: DO YOU HAVE THOUGHTS OF HURTING YOURSELF OR SOMEONE ELSE? NO . ARE YOU ABUSED, NEGLECTED, OR IN AN UNSAFE ENVIRONMENT? NO . ENDOCRINOLOGY: ARE YOU DIABETIC? NO . OTHER: DO YOU NEED ANY PRESCRIPTIONS? NO . IF YES, PLEASE LIST: ____ . ANY NEW PROBLEMS WITH YOUR MEDICATIONS? NO . WHEN DID YOU LAST EAT? ____11/09/18 2200 . WHEN DID YOU LAST DRINK? ____11/10/18 0600 . WHAT DID YOU LAST DRINK? ____WATER . NAME OF PERSON DRIVING YOU HOME? ____KRISTEL . DO YOU HAVE ANY OTHER QUESTIONS OR CONCERNS NO . VITAL SIGNS WT 205.8 LBS, HT 68 IN, BMI 31.29 INDEX, BP 136/77 MM HG, HR 96 /MIN, RR 18 /MIN, TEMP 97.8 F, OXYGEN SAT % 98%, SAFE IN ENV? (Y/N) YES, NA INITIALS AW 0915, REVIEWED BY: JS. ASSESSMENTS SPONDYLOSIS OF LUMBAR REGION WITHOUT MYELOPATHY OR RADICULOPATHY - M47.816 (PRIMARY) SPONDYLOSIS OF LUMBOSACRAL REGION WITHOUT MYELOPATHY OR RADICULOPATHY - M47.817 PROCEDURES PN LUMBAR FACET BLOCK THERAPEUTIC PRE PROCEDURE DIAGNOSIS LUMBAR SPONDYLOSIS, LUMBOSACRAL SPONDYLOSIS POST PROCEDURE DIAGNOSIS LUMBAR SPONDYLOSIS, LUMBOSACRAL SPONDYLOSIS PROCEDURE BILATERAL L4-L5 AND BILATERAL L5-S1 LUMBAR FACET THERAPEUTIC BLOCK SURGEON DR. SHELIA VILLASENOR ALLERGIST IMMUNOLOGIST NONE ANESTHESIA LOCAL PRE PROCEDURE NOTE THE PATIENT HAS A HISTORY OF CHRONIC LOW BACK PAIN. I EVALUATE THE PATIENT AND REVIEWED THE CHART. I WENT OVER THE RISKS, ALTERNATIVES, AND BENEFITS ASSOCIATED WITH THIS PROCEDURE. THE PATIENT WOULD LIKE TO PROCEED AND GIVE CONSENT TO PERFORMED THE PROCEDURE. THE PATIENT DENIES UNEXPLAINABLE WEIGHT LOSS, FEVER, CHILLS, OR NEW CHANGES IN URINARY OR BOWEL CONTROL DESCRIPTION OF PROCEDURE THE PATIENT WAS BROUGHT TO THE PROCEDURE ROOM AND PLACED IN THE PRONE POSITION. THE LUMBOSACRAL AREA WAS CLEANED WITH CHLORAPREP SOLUTION AND DRAPED ASEPTICALLY. THE PROCEDURE WAS DONE UNDER STERILE CONDITIONS. I CHECKED LATERALITY AND THE LEVEL WHERE THE PROCEDURE WAS GOING TO BE PERFORMED WITH THE PATIENT AND THE SUPPORTING STAFF AT THE MOMENT OF THE TIME OUT IN THE PROCEDURE ROOM. UNDER FLUOROSCOPIC GUIDANCE, THE TARGET POINT WAS SELECTED AT THE RIGHT AND LEFT L4-L5 AND RIGHT AND LEFT L5-S1 FACET JOINT. TARGET POINT WAS SELECTED AFTER LATERAL ROTATION AND TILT OF THE MAGNIFIER OF THE C-ARM. LIDOCAINE 0.5% WAS USED TO NUMB THE SKIN AND THE SUBCUTANEOUS TISSUE BELOW IT. SPINAL NEEDLES, 22-GAUGE, WERE ADVANCED UNDER FLUOROSCOPIC GUIDANCE AND FOLLOWING PATIENT FEEDBACK UNTIL THE TARGETS WERE TOUCHED. THE POSITION OF THE NEEDLES WAS VERIFIED WITH AP AND LATERAL VIEWS. AFTER PROPER POSITION OF THE NEEDLES WAS ACHIEVED, ISOVUE-M DYE 30% 0.1 ML WAS INJECTED SHOWING ADEQUATE SPREAD OF THE DYE. THEN A SOLUTION OF 1.9 ML OF BUPIVACAINE 0.125% OF KENALOG 10 MG WAS INJECTED AT EACH SITE. THERE WAS NO EVIDENCE OF BLOOD, PARESTHESIA OR CEREBROSPINAL FLUID DURING THE PROCEDURE. THE PATIENT WAS SENT TO THE RECOVERY ROOM. THE PATIENT WAS MOVING THE EXTREMITIES AND DOING WELL. THERE WAS NO COMPLICATION DURING THE PROCEDURE. FLUOROSCOPY TIME WAS 23 SECONDS POST PROCEDURE NOTE THE PATIENT WILL BE SEEN IN A FOLLOW UP IN THE NEXT FEW WEEKS. INSTRUCTIONS WERE GIVEN, QUESTIONS WERE ANSWERED, AND THE PATIENT EXPRESSED UNDERSTANDING AND AGREES WITH THE PLAN. I, YASMEEN DE LEÓN, DOCUMENTED THE ABOVE INFORMATION ACTING A SCRIBE FOR DR. VILLASENOR. I HAVE REVIEWED THE ABOVE DOCUMENT, WRITTEN BY YASMEEN DE LEÓN SCRIBE AND I VERIFY THAT IT IS ACCURATE. DIAGNOSTIC IMAGING [facility] FACET BLOCK (PAIN)[id number] PROCEDURE CODES 6045F RADXPS IN END [id number] PXD [id number] INJ PARAVERT F JNT L/S 1 LEV, MODIFIERS: 50 [id number] INJ PARAVERT F JNT L/S 2 LEV, MODIFIERS: 50 DISPOSITION & COMMUNICATION FOLLOW UP 3 WEEKS ELECTRONICALLY SIGNED BY SHELIA VILLASENOR MD, MD ON 11/24/2018 AT 02:52 PM EST DISCLAIMER : THIS IS A VISIT SUMMARY EXTRACTED FROM THE [employer] CHART. IT IS NOT A COPY OF THE [employer] PROGRESS NOTE. MTDD
== END ==
LOC: M PAIN 08:45
PROVIDERS: ATTEND Anesthesiology
DX: G89.29 Other chronic pain (principal); M47.816 Spondylosis without myelopathy or radiculopathy, lumbar region; M47.817 Spondylosis without myelopathy or radiculopathy, lumbosacral region; J44.9 Chronic obstructive pulmonary disease, unspecified; F41.9 Anxiety disorder, unspecified; F43.10 Post-traumatic stress disorder, unspecified; G25.81 Restless legs syndrome; K22.70 Barrett's esophagus without dysplasia; F17.210 Nicotine dependence, cigarettes, uncomplicated; Z79.899 Other long term (current) drug therapy; Z88.8 Allergy status to other drugs, medicaments and biological substances
CPT/HCPCS: 64493; 64494; J3301; Q9967

== ENCOUNTER → 2018-12-07 | Outpatient (CLI) | payer OTHER ==
[~2018-12-07] MED LIST changes: -BUPIVACAINE HCL 0.25% 30 ML VIAL As Ordered ONE; -ISOVUE-M 300 61% 15ML VIAL (Q9967) As Ordered ONE; -LIDOCAINE 1% SDV INJ 30 ML VIAL As Ordered ONE; -TRIAMCINOLONE ACETONIDE SUSP 40 MG/ML VIAL (J3301) As Ordered ONE; -diazePAM 5 MG TAB As Ordered ONE; -oxyCODONE 5MG TAB As Ordered ONE
--- NOTE | 2018-12-15 01:13 | ECWPNPC ---
PATIENT NAME: CARLITO HUA : 1970 GENDER: MALE VISIT DATE: 12/07/2018 DISCHARGE DATE: 12/07/18 0955 VISIT LOCKED DATE TIME: PHYSICIAN: MICHAEL HERNANDEZ RESOURCE: MICHAEL HERNANDEZ REASON FOR APPOINTMENT 1. POST PROC HISTORY OF PRESENT ILLNESS HISTORY OF PRESENT ILLNESS: HERE FOR POST PROCEDURE F/U.HAD BILATERAL L4/5-L5/S1 THERAPEUTIC FACET BLOCK ON 11-10-18.REPORTING 50% IMPROVEMENT X2 WEEKS THEN PAIN RETURNED AFTER SHOVELING.RATING PAIN VAS 7/10. PAIN THE PATIENT DESCRIBES THE PAIN... FALL RISK SCREENING: SCREENING :NO FALLS IN THE PAST YEAR CURRENT MEDICATIONS TAKING TIZANIDINE HCL 4 MG TABLET 1 TABLET NEEDED ORALLY BID TAKING BACLOFEN 20 MG TABLET 2 TABLET WITH FOOD OR MILK ORALLY EVERY 8 HRS TAKING RIBOFLAVIN 100 MG TABLET 2 TABLET WITH A MEAL ORALLY TWICE A DAY TAKING MAGNESIUM 400 MG CAPSULE ORALLY TWICE DAILY TAKING TOPIRAMATE 100 MG TABLET 1 TABLET ORALLY NIGHTLY TAKING TOPIRAMATE 50 MG TABLET 1 TABLET ORALLY IN MORNING TAKING POTASSIUM CHLORIDE 10 MEQ CAPSULE EXTENDED RELEASE 1 CAPSULE WITH FOOD ORALLY ONCE A DAY TAKING ATENOLOL 25 MG TABLET 1 TABLET ORALLY ONCE A DAY TAKING FISH OIL 1000 MG CAPSULE 1 CAPSULE ORALLY TID TAKING VITAMIN B COMPLEX - TABLET ORALLY TAKING CRESTOR 40 MG TABLET 1 TABLET ORALLY ONCE A DAY TAKING OMEPRAZOLE 10 MG CAPSULE DELAYED RELEASE 1 CAPSULE ORALLY BID TAKING BOTOX 200 UNIT SOLUTION RECONSTITUTED INJECTION , NOTES: AUGUST OR SEPTEMBER TAKING DULOXETINE HCL 30 MG CAPSULE DELAYED RELEASE PARTICLES 1 CAPSULE ORALLY ONCE A DAY TAKING COMBIVENT 120-20 MCG/ACT AEROSOL 2 PUFFS INHALATION FOUR TIMES A DAY TAKING SYMBICORT 80-4.5 MCG/ACT AEROSOL 2 PUFFS INHALATION TWICE A DAY TAKING VIAGRA 100 MG TABLET 1 CAP(S) ORALLY DIRECTED MEDICATION LIST REVIEWED AND RECONCILED WITH THE PATIENT PAST MEDICAL HISTORY DEGENERATIVE DISC DISEASE ED ANXIETY, PTSD HEADACHES 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 SOCIAL HISTORY GENERAL: TOBACCO USE ARE YOU A:CURRENT SMOKER ARE YOU INTERESTED IN QUITTING?READY TO QUIT CURRENTLY TRYING TO QUIT, USING NICOTINE LOZENGES AND PATCHES AND IS CUTTING BACK COUNSELED THE PATIENT ON TOBACCO USE, CESSATION [id number]/04/2019 PATIENT COUNSELED ON THE DANGERS OF TOBACCO USE AND URGED TO QUIT:12/07/2018 ALCOHOL SCREENING DID YOU HAVE A DRINK CONTAINING ALCOHOL IN THE PAST YEAR?NO POINTS0 INTERPRETATIONNEGATIVE RECREATIONAL DRUG USE DRUG USE?NO CAFFEINE CAFFEINE USE?YES HOW OFTEN AND HOW MUCH? HAS 1-2 CUPS OF COFFEE DAILY SYNAGOGUE [id number] NONE LANGUAGE LANGUAGES SPOKEN:MALTESE LEARNING BARRIERS / SPECIAL NEEDS BARRIERS TO LEARNING?NO HEARING IMPAIRED?YES : SLIGHT HEARING IMPAIRED VISION IMPAIRED?YES : CORRECTIVE LENSES READINESS TO LEARN?YES LEARNING PREFERENCES?NO EMOTIONAL BARRIERS?NO SPECIAL DEVICES?NO CRIMINAL JUSTICE SOCIAL WORKER NEEDED?NO DIET: REGULAR. PAIN CLINIC PFS, CLERGY, PUBLIC HEALTH REFERRALS PFS REFERRAL NEEDED?NO CLERGY REFERRAL NEEDED?NO PUBLIC HEALTH REFERRAL NEEDED?NO WAS THE PROVIDER NOTIFIED OF ANY PERTINENT INFO?YES HAS THE PATIENT BEEN EDUCATED REGARDING HIS/HER PLAN OF CARE?YES HAS THE PATIENT BEEN EDUCATED REGARDING PAIN, THE RISK FOR PAIN, THE IMPORTANCE OF EFFECTIVE PAIN MANAGEMENT, AND THE PAIN ASSESSMENT PROCESS?YES ADVANCE DIRECTIVE ADVANCE DIRECTIVE DISCUSSED WITH PATIENT:YES PT DECLINES HCP INFORMATION. REVIEWED 02/26/18 0920 BVREVIEWED WITH PT 06/25/18 0915 LASREVIEWED WITH PATIENT 08/31/18 1001 JSREVIEWED WITH PT 09/28/18 0903 BVREVIEWED WITH PATIENT 11/10/18 0926 JS. HOSPITALIZATION/MAJOR DIAGNOSTIC PROCEDURE SLEEP STUDY MENTAL HEALTH 2011 REVIEW OF SYSTEMS REVIEWED BY: PROVIDER: MICHAEL SOTELO . CONSTITUTIONAL: ANY CHANGE IN YOUR MEDICAL CONDITION? NO . CHILLS NO . FEVER NO . INFECTION: DO YOU HAVE NEW INFECTIONS? NO . DO YOU HAVE HISTORY OF MRSA? NO . MUSCULOSKELETAL: ANY NEW PATTERNS OF PAIN OR NUMBNESS? NO . GASTROENTEROLOGY: ANY NEW CHANGE IN BOWEL CONTROL? NO . GENITOURINARY: ANY NEW CHANGE IN BLADDER CONTROL? NO . IS THERE A CHANCE YOU COULD BE ? NO . HEMATOLOGY/LYMPH: DO YOU TAKE ANY BLOOD THINNERS? (FOR EXAMPLE- COUMADIN, PLAVIX, AGGRENOX, PLATEL, PRADAXA, OR XARELTO) NO . WHEN WAS YOUR LAST DOSE? DATE: TIME: . NEUROLOGY: HAVE YOU FALLEN IN THE PAST 12 MONTHS? NO . ANY NEW EXTREMITY NUMBNESS OR WEAKNESS? NO . CARDIOLOGY: DO YOU HAVE A PACEMAKER OR DEFIBRILLATOR? NO . RESPIRATORY: HAVE YOU BEEN SICK IN THE PAST WEEK? NO . FEVER NO . FLU LIKE SYMPTOMS? NO . COUGH NO . INTEGUMENTARY: DO YOU HAVE ANY RASHES OR OPEN SORES? NO . ALLERGIC/IMMUNO: ARE YOU ALLERGIC TO IV DYE? NO . ANY NEW ALLERGIES? NO . PSYCHIATRIC: DO YOU HAVE THOUGHTS OF HURTING YOURSELF OR SOMEONE ELSE? NO . ARE YOU ABUSED, NEGLECTED, OR IN AN UNSAFE ENVIRONMENT? NO . ENDOCRINOLOGY: ARE YOU DIABETIC? NO . OTHER: DO YOU NEED ANY PRESCRIPTIONS? NO . IF YES, PLEASE LIST: ____ . ANY NEW PROBLEMS WITH YOUR MEDICATIONS? NO . WHEN DID YOU LAST EAT? ____ . WHEN DID YOU LAST DRINK? ____ . WHAT DID YOU LAST DRINK? ____ . NAME OF PERSON DRIVING YOU HOME? ____ . DO YOU HAVE ANY OTHER QUESTIONS OR CONCERNS NO . VITAL SIGNS WT 201.8 LBS, HT 68 IN, BMI 30.68 INDEX, BP 133/76 MM HG, HR 92 /MIN, RR 18 /MIN, TEMP 97.4 F, OXYGEN SAT % 98%, NA INITIALS SC 08:56, REVIEWED BY: EM. EXAMINATION GENERAL EXAMINATION: GENERAL APPEARANCE:ALERT,NO DISTRESS . PSYCHAFFECT NORMAL . LUNGS:LUNG SOUNDS ARE CLEAR . HEART:HEART RATE REGULAR . MUSCULOSKELETAL:MUSCLE STRENGTH TESTING 5/5 BILATERAL . LUMBAR SACRAL SPINESEVERE INCREASE IN LOW BACK PAIN WITH FACET LOADING -L4/5-L5/1 BILAT. . DIAGNOSTIC TESTS REVIEWEDMRI L/S SPINE-MARCH 2017. ASSESSMENTS SPONDYLOSIS OF LUMBAR REGION WITHOUT MYELOPATHY OR RADICULOPATHY - M47.816 (PRIMARY) TREATMENT SPONDYLOSIS OF LUMBAR REGION WITHOUT MYELOPATHY OR RADICULOPATHY NOTES: BILAT L4/5-L5/S1 DIAGNOSTIC BLOCK. PREVENTIVE MEDICINE PAIN CLINIC TEACHING: PROCEDURE TEACHING PT GIVEN WRITTEN AND VERBAL PRE-PROCEDURE INSTRUCTIONS. PT VERBALIZES UNDERSTANDING OF ALL INSTRUCTIONS. RENE HUSSEIN 12/07/2018 9:56:18 AM > . PROCEDURE CODES FA211 ESTABILISHED PATIENT [facility] FACILITY CHARGE DISPOSITION & COMMUNICATION FOLLOW UP POST (REASON: BILAT L4/5-L5/S1 DIAGNOSTIC BLOCK) ELECTRONICALLY SIGNED BY ASHLEIGH BARILLAS ON 12/14/2018 AT 04:45 PM EST DISCLAIMER : THIS IS A VISIT SUMMARY EXTRACTED FROM THE [employer] CHART. IT IS NOT A COPY OF THE [employer] PROGRESS NOTE. CORIN
== END ==
LOC: M PAIN 08:30
PROVIDERS: ATTEND Nurse Practitioner Family
DX: M47.816 Spondylosis without myelopathy or radiculopathy, lumbar region (principal); F41.9 Anxiety disorder, unspecified; F43.10 Post-traumatic stress disorder, unspecified; R51 Headache; G25.81 Restless legs syndrome; J44.9 Chronic obstructive pulmonary disease, unspecified; K22.70 Barrett's esophagus without dysplasia; F17.210 Nicotine dependence, cigarettes, uncomplicated; Z79.899 Other long term (current) drug therapy; Z88.8 Allergy status to other drugs, medicaments and biological substances

== ENCOUNTER → 2018-12-08 | Outpatient (CLI) | payer OTHER ==
[~2018-12-08] MED LIST changes: +BUPIVACAINE HCL 0.25% 30 ML VIAL As Ordered ONE; +ISOVUE-M 300 61% 15ML VIAL (Q9967) As Ordered ONE; +LIDOCAINE 1% SDV INJ 30 ML VIAL As Ordered ONE
--- NOTE | 2018-12-08 16:17 | REP ---
Partial lumbar spine series: Three views . History: Injection procedure for pain. 36 seconds of fluoroscopy time is reported. Findings: A sequence of three fluoroscopically obtained last image hold procedural spot radiographs of the lumbar spine document needle position and contrast injection associated with injection procedure. Electronically Signed by Jv Cagle MD 12/08/2018 04:08 P
--- NOTE | 2018-12-19 23:21 | ECWPNPC ---
PATIENT NAME: CARLITO HUA : 1970 GENDER: MALE VISIT DATE: 12/08/2018 DISCHARGE DATE: 12/08/18 1551 VISIT LOCKED DATE TIME: PHYSICIAN: SHELIA VILLASENOR MD RESOURCE: SHELIA VILLASENOR MD REASON FOR APPOINTMENT 1. BILAT L4/5-L5/S1 DIAGNOSTIC BLOCK HISTORY OF PRESENT ILLNESS HISTORY OF PRESENT ILLNESS: PAIN THE PATIENT DESCRIBES THE PAIN... FALL RISK SCREENING: SCREENING :NO FALLS IN THE PAST YEAR CURRENT MEDICATIONS TAKING TIZANIDINE HCL 4 MG TABLET 1 TABLET NEEDED ORALLY BID, NOTES: 12/06/18 TAKING BACLOFEN 20 MG TABLET 2 TABLET WITH FOOD OR MILK ORALLY EVERY 8 HRS, NOTES: 12/06/18 TAKING RIBOFLAVIN 100 MG TABLET 2 TABLET WITH A MEAL ORALLY TWICE A DAY, NOTES: 12/07/18 TAKING MAGNESIUM 400 MG CAPSULE ORALLY TWICE DAILY, NOTES: 12/07/18 TAKING TOPIRAMATE 100 MG TABLET 1 TABLET ORALLY NIGHTLY, NOTES: 12/07/18 TAKING TOPIRAMATE 50 MG TABLET 1 TABLET ORALLY IN MORNING, NOTES: 12/07/18 TAKING POTASSIUM CHLORIDE 10 MEQ CAPSULE EXTENDED RELEASE 1 CAPSULE WITH FOOD ORALLY ONCE A DAY, NOTES: 12/07/18 TAKING ATENOLOL 25 MG TABLET 1 TABLET ORALLY ONCE A DAY, NOTES: 12/07/18 TAKING FISH OIL 1000 MG CAPSULE 1 CAPSULE ORALLY TID, NOTES: 12/07/18 TAKING VITAMIN B COMPLEX - TABLET ORALLY , NOTES: 12/07/18 TAKING CRESTOR 40 MG TABLET 1 TABLET ORALLY ONCE A DAY, NOTES: 12/07/18 TAKING OMEPRAZOLE 10 MG CAPSULE DELAYED RELEASE 1 CAPSULE ORALLY BID, NOTES: 12/07/18 TAKING BOTOX 200 UNIT SOLUTION RECONSTITUTED INJECTION , NOTES: AUGUST TAKING DULOXETINE HCL 30 MG CAPSULE DELAYED RELEASE PARTICLES 1 CAPSULE ORALLY ONCE A DAY, NOTES: 12/07/18 TAKING COMBIVENT 120-20 MCG/ACT AEROSOL 2 PUFFS INHALATION FOUR TIMES A DAY, NOTES: 12/07/18 TAKING SYMBICORT 80-4.5 MCG/ACT AEROSOL 2 PUFFS INHALATION TWICE A DAY, NOTES: 12/07/18 TAKING VIAGRA 100 MG TABLET 1 CAP(S) ORALLY DIRECTED, NOTES: NONE LATELY MEDICATION LIST REVIEWED AND RECONCILED WITH THE PATIENT PAST MEDICAL HISTORY DEGENERATIVE DISC DISEASE ED ANXIETY, PTSD HEADACHES 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 SOCIAL HISTORY GENERAL: TOBACCO USE ARE YOU A:CURRENT SMOKER ARE YOU INTERESTED IN QUITTING?READY TO QUIT CURRENTLY TRYING TO QUIT, USING NICOTINE LOZENGES AND PATCHES AND IS CUTTING BACK COUNSELED THE PATIENT ON TOBACCO USE, CESSATION [id number]/05/2019 PATIENT COUNSELED ON THE DANGERS OF TOBACCO USE AND URGED TO QUIT:12/08/2018 ALCOHOL SCREENING DID YOU HAVE A DRINK CONTAINING ALCOHOL IN THE PAST YEAR?NO POINTS0 INTERPRETATIONNEGATIVE RECREATIONAL DRUG USE DRUG USE?NO CAFFEINE CAFFEINE USE?YES HOW OFTEN AND HOW MUCH? 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 PAIN CLINIC PFS, CLERGY, PUBLIC HEALTH REFERRALS PFS REFERRAL NEEDED?NO CLERGY REFERRAL NEEDED?NO PUBLIC HEALTH REFERRAL NEEDED?NO WAS THE PROVIDER NOTIFIED OF ANY PERTINENT INFO?YES HAS THE PATIENT BEEN EDUCATED REGARDING HIS/HER PLAN OF CARE?YES HAS THE PATIENT BEEN EDUCATED REGARDING PAIN, THE RISK FOR PAIN, THE IMPORTANCE OF EFFECTIVE PAIN MANAGEMENT, AND THE PAIN ASSESSMENT PROCESS?YES ADVANCE DIRECTIVE ADVANCE DIRECTIVE DISCUSSED WITH PATIENT:YES PT DECLINES HCP INFORMATION. REVIEWED 02/26/18 0920 BVREVIEWED WITH PT 06/25/18 0915 LASREVIEWED WITH PATIENT 08/31/18 1001 JSREVIEWED WITH PT 09/28/18 0903 BVREVIEWED WITH PATIENT 11/10/18 0926 JS. HOSPITALIZATION/MAJOR DIAGNOSTIC PROCEDURE SLEEP STUDY MENTAL HEALTH 2011 REVIEW OF SYSTEMS REVIEWED BY: PROVIDER: . CONSTITUTIONAL: ANY CHANGE IN YOUR MEDICAL CONDITION? NO . CHILLS NO . FEVER NO . INFECTION: DO YOU HAVE NEW INFECTIONS? NO . DO YOU HAVE HISTORY OF MRSA? NO . MUSCULOSKELETAL: ANY NEW PATTERNS OF PAIN OR NUMBNESS? NO . GASTROENTEROLOGY: ANY NEW CHANGE IN BOWEL CONTROL? NO . GENITOURINARY: ANY NEW CHANGE IN BLADDER CONTROL? NO . IS THERE A CHANCE YOU COULD BE ? NO . HEMATOLOGY/LYMPH: DO YOU TAKE ANY BLOOD THINNERS? (FOR EXAMPLE- COUMADIN, PLAVIX, AGGRENOX, PLATEL, PRADAXA, OR XARELTO) NO . WHEN WAS YOUR LAST DOSE? DATE: TIME: . NEUROLOGY: HAVE YOU FALLEN IN THE PAST 12 MONTHS? NO . ANY NEW EXTREMITY NUMBNESS OR WEAKNESS? NO . CARDIOLOGY: DO YOU HAVE A PACEMAKER OR DEFIBRILLATOR? NO . RESPIRATORY: HAVE YOU BEEN SICK IN THE PAST WEEK? NO . FEVER NO . FLU LIKE SYMPTOMS? NO . COUGH NO . INTEGUMENTARY: DO YOU HAVE ANY RASHES OR OPEN SORES? NO . ALLERGIC/IMMUNO: ARE YOU ALLERGIC TO IV DYE? NO . ANY NEW ALLERGIES? NO . PSYCHIATRIC: DO YOU HAVE THOUGHTS OF HURTING YOURSELF OR SOMEONE ELSE? NO . ARE YOU ABUSED, NEGLECTED, OR IN AN UNSAFE ENVIRONMENT? NO . ENDOCRINOLOGY: ARE YOU DIABETIC? NO . OTHER: DO YOU NEED ANY PRESCRIPTIONS? NO . IF YES, PLEASE LIST: ____ . ANY NEW PROBLEMS WITH YOUR MEDICATIONS? NO . WHEN DID YOU LAST EAT? 12/07/18 2300 . WHEN DID YOU LAST DRINK? 12/08/18 1100 . WHAT DID YOU LAST DRINK? WATER . NAME OF PERSON DRIVING YOU HOME? VIKTOR . DO YOU HAVE ANY OTHER QUESTIONS OR CONCERNS NO . VITAL SIGNS WT 201.8 LBS, HT 68 IN, BMI 30.68 INDEX, BP 135/78 MM HG, HR 89 /MIN, RR 18 /MIN, TEMP 98.1 F, OXYGEN SAT % 100%, NA INITIALS SC 14:26. ASSESSMENTS SPONDYLOSIS OF LUMBAR REGION WITHOUT MYELOPATHY OR RADICULOPATHY - M47.816 (PRIMARY) SPONDYLOSIS OF LUMBOSACRAL REGION WITHOUT MYELOPATHY OR RADICULOPATHY - M47.817 TREATMENT SPONDYLOSIS OF LUMBAR REGION WITHOUT MYELOPATHY OR RADICULOPATHY SMC FACET BLOCK (PAIN)[id number] PROCEDURES PN LUMBAR FACET BLOCK DIAGNOSTIC PRE PROCEDURE DIAGNOSIS LUMBAR SPONDYLOSIS, LUMBOSACRAL SPONDYLOSIS POST PROCEDURE DIAGNOSIS LUMBAR SPONDYLOSIS, LUMBOSACRAL SPONDYLOSIS PROCEDURE BILATERAL L4-L5 AND BILATERAL L5-S1 FACET BLOCK DIAGNOSTIC NUMBER [address] SHELIA VILLASENOR AVIATION ORDNANCE OFFICER NONE ANESTHESIA LOCAL PRE PROCEDURE NOTE THE PATIENT WITH HISTORY OF CHRONIC LOW BACK PAIN. I EVALUATED THE PATIENT AND REVIEWED THE CHART. I WENT OVER THE RISKS, ALTERNATIVES, AND BENEFITS ASSOCIATED WITH THIS PROCEDURE. THE PATIENT WOULD LIKE TO PROCEED AND GAVE CONSENT TO PERFORM THE PROCEDURE. AGREED WITH THE PATIENT WE ARE DOING THIS PROCEDURE TO DETERMINE IF THE PATIENT IS A CANDIDATE FOR A RADIOFREQUENCY ABLATION OF THE FACETS JOINTS. THE PATIENT DENIES UNEXPLAINABLE WEIGHT LOSS, FEVER, CHILLS, OR NEW CHANGES IN URINARY OR BOWEL CONTROL DESCRIPTION OF PROCEDURE THE PATIENT WAS BROUGHT TO THE PROCEDURE ROOM AND PLACED IN THE PRONE POSITION. THE LUMBOSACRAL AREA WAS CLEANED WITH CHLORAPREP SOLUTION AND DRAPED ASEPTICALLY. THE PROCEDURE WAS DONE UNDER STERILE CONDITIONS. I CHECKED LATERALITY AND THE LEVEL WHERE THE PROCEDURE WAS GOING TO BE PERFORMED WITH THE PATIENT AND THE SUPPORTING STAFF AT THE MOMENT OF THE TIME OUT IN THE PROCEDURE ROOM. UNDER FLUOROSCOPIC GUIDANCE, TARGETS WERE SELECTED AT THE INTERSECTION OF THE RIGHT AND LEFT TRANSVERSE PROCESS OF L4, L5 AND ALA OF S1 WITH ITS RESPECTIVE SUPERIOR ARTICULAR PROCESS. LIDOCAINE WAS USED TO NUMB THE SKIN AND THE SUBCUTANEOUS TISSUE BELOW IT. SPINAL NEEDLE, 22-GAUGE WAS ADVANCED UNDER FLUOROSCOPIC GUIDANCE AND FOLLOWING PATIENT FEEDBACK UNTIL THE TARGETS WERE REACHED. POSITION OF THE NEEDLES WAS VERIFIED WITH AP AND LATERAL VIEWS. AFTER PROPER POSITION OF THE NEEDLES WAS ACHIEVED, ISOVUE-M DYE 30% 0.1 ML WAS INJECTED AT EACH SITE SHOWING ADEQUATE SPREAD OF THE DYE. THEN A SOLUTION OF 0.4 ML OF BUPIVACAINE 0.25% WAS INJECTED AT EACH SITE. THERE WAS NO EVIDENCE OF BLOOD, PARESTHESIA OR CEREBROSPINAL FLUID DURING THE PROCEDURE. THE PATIENT WAS SENT TO THE RECOVERY ROOM. THE PATIENT WAS MOVING THE EXTREMITIES AND DOING WELL. THERE WAS NO COMPLICATION DURING THE PROCEDURE. FLUOROSCOPY TIME WAS 36 SECONDS POST PROCEDURE NOTE THE PATIENT WILL DOCUMENT HIS PAIN LEVEL AND RESPONSE TO THIS PROCEDURE EVERY 30 MINUTES. THE PATIENT WILL BE SEEN IN A FOLLOW UP IN THE NEXT FEW WEEKS. FURTHER DETERMINATION FOR HIS CASE WILL BE DONE AT THE NEXT VISIT. INSTRUCTIONS WERE GIVEN, QUESTIONS WERE ANSWERED, AND THE PATIENT EXPRESSED UNDERSTANDING AND AGREED WITH THE PLAN. I, YASMEEN DE LEÓN, DOCUMENTED THE ABOVE INFORMATION ACTING A SCRIBE FOR DR. VILLASENOR. I HAVE REVIEWED THE ABOVE DOCUMENT, WRITTEN BY YASMEEN DE LEÓN SCRIBSherrill AND I VERIFY THAT IT IS ACCURATE. PROCEDURE CODES 6045F RADXPS IN END [id number] PXD 13457 INJ PARAVERT F JNT L/S 1 LEV, MODIFIERS: 50 [id number] INJ PARAVERT F JNT L/S 2 LEV, MODIFIERS: 50 DISPOSITION & COMMUNICATION FOLLOW UP 3 WEEKS ELECTRONICALLY SIGNED BY SHELIA VILLASENOR MD, MD ON 12/19/2018 AT 06:48 PM EST DISCLAIMER : THIS IS A VISIT SUMMARY EXTRACTED FROM THE [employer] CHART. IT IS NOT A COPY OF THE [employer] PROGRESS NOTE. MTDD
== END ==
LOC: M PAIN 14:00
PROVIDERS: ATTEND Anesthesiology
DX: G89.29 Other chronic pain (principal); M47.816 Spondylosis without myelopathy or radiculopathy, lumbar region; M47.817 Spondylosis without myelopathy or radiculopathy, lumbosacral region; J44.9 Chronic obstructive pulmonary disease, unspecified; G25.81 Restless legs syndrome; K22.70 Barrett's esophagus without dysplasia; F43.10 Post-traumatic stress disorder, unspecified; F41.9 Anxiety disorder, unspecified; Z72.0 Tobacco use; Z79.899 Other long term (current) drug therapy; Z88.8 Allergy status to other drugs, medicaments and biological substances
CPT/HCPCS: 64493; 64494; Q9967

== ENCOUNTER → 2018-12-22 | Outpatient (CLI) | payer OTHER ==
[~2018-12-22] MED LIST changes: -BUPIVACAINE HCL 0.25% 30 ML VIAL As Ordered ONE; -ISOVUE-M 300 61% 15ML VIAL (Q9967) As Ordered ONE; -LIDOCAINE 1% SDV INJ 30 ML VIAL As Ordered ONE
--- NOTE | 2019-01-04 00:25 | ECWPNPC ---
PATIENT NAME: CARLITO HUA : 1970 GENDER: MALE VISIT DATE: 12/22/2018 DISCHARGE DATE: 12/22/18 1627 VISIT LOCKED DATE TIME: PHYSICIAN: MICHAEL HERNANDEZ RESOURCE: MICHAEL HERNANDEZ REASON FOR APPOINTMENT 1. POST PROCEDURE HISTORY OF PRESENT ILLNESS HISTORY OF PRESENT ILLNESS: HERE FOR POST PROCEDURE F/U.HAD BILAT. L4/5-L5/S1 DIAGNOSTIC BLOCK ON 12/08/18.HOURLY PAIN DIARY REVIEWED.RATING PAIN VAS 7/10. PAIN THE PATIENT DESCRIBES THE PAIN... FALL RISK SCREENING: SCREENING : NO FALLS IN THE PAST YEAR. CURRENT MEDICATIONS TAKING TIZANIDINE HCL 4 MG TABLET 1 TABLET NEEDED ORALLY BID TAKING BACLOFEN 20 MG TABLET 2 TABLET WITH FOOD OR MILK ORALLY EVERY 8 HRS TAKING RIBOFLAVIN 100 MG TABLET 2 TABLET WITH A MEAL ORALLY TWICE A DAY TAKING MAGNESIUM 400 MG CAPSULE ORALLY TWICE DAILY TAKING TOPIRAMATE 100 MG TABLET 1 TABLET ORALLY NIGHTLY TAKING TOPIRAMATE 50 MG TABLET 1 TABLET ORALLY IN MORNING TAKING POTASSIUM CHLORIDE 10 MEQ CAPSULE EXTENDED RELEASE 1 CAPSULE WITH FOOD ORALLY ONCE A DAY TAKING ATENOLOL 25 MG TABLET 1 TABLET ORALLY ONCE A DAY TAKING FISH OIL 1000 MG CAPSULE 1 CAPSULE ORALLY TID TAKING VITAMIN B COMPLEX - TABLET ORALLY TAKING CRESTOR 40 MG TABLET 1 TABLET ORALLY ONCE A DAY TAKING OMEPRAZOLE 10 MG CAPSULE DELAYED RELEASE 1 CAPSULE ORALLY BID TAKING BOTOX 200 UNIT SOLUTION RECONSTITUTED INJECTION TAKING DULOXETINE HCL 30 MG CAPSULE DELAYED RELEASE PARTICLES 1 CAPSULE ORALLY ONCE A DAY TAKING COMBIVENT 120-20 MCG/ACT AEROSOL 2 PUFFS INHALATION FOUR TIMES A DAY TAKING SYMBICORT 80-4.5 MCG/ACT AEROSOL 2 PUFFS INHALATION TWICE A DAY TAKING VIAGRA 100 MG TABLET 1 CAP(S) ORALLY DIRECTED, NOTES: NONE LATELY MEDICATION LIST REVIEWED AND RECONCILED WITH THE PATIENT PAST MEDICAL HISTORY DEGENERATIVE DISC DISEASE ED ANXIETY, PTSD HEADACHES 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 SOCIAL HISTORY GENERAL: TOBACCO USE ARE YOU A:CURRENT SMOKER ARE YOU INTERESTED IN QUITTING?READY TO QUIT CURRENTLY TRYING TO QUIT, USING NICOTINE LOZENGES AND PATCHES AND IS CUTTING BACK COUNSELED THE PATIENT ON TOBACCO USE, CESSATION [id number]/19/2019 PATIENT COUNSELED ON THE DANGERS OF TOBACCO USE AND URGED TO QUIT:12/22/2018 ALCOHOL SCREENING DID YOU HAVE A DRINK CONTAINING ALCOHOL IN THE PAST YEAR?NO POINTS0 INTERPRETATIONNEGATIVE RECREATIONAL DRUG USE DRUG USE?NO CAFFEINE CAFFEINE USE?YES HOW OFTEN AND HOW MUCH? HAS 1-2 CUPS OF COFFEE DAILY SIKHISM [id number] NONE LANGUAGE LANGUAGES SPOKEN:[place]IZ[place] OF [place] LEARNING BARRIERS / SPECIAL NEEDS BARRIERS TO LEARNING?NO HEARING IMPAIRED?YES : SLIGHT HEARING IMPAIRED VISION IMPAIRED?YES : CORRECTIVE LENSES READINESS TO LEARN?YES LEARNING PREFERENCES?NO EMOTIONAL BARRIERS?NO SPECIAL DEVICES?NO NEON ELECTRICIAN NEEDED?NO DIET: REGULAR. PAIN CLINIC PFS, CLERGY, PUBLIC HEALTH REFERRALS PFS REFERRAL NEEDED?NO CLERGY REFERRAL NEEDED?NO PUBLIC HEALTH REFERRAL NEEDED?NO WAS THE PROVIDER NOTIFIED OF ANY PERTINENT INFO?YES HAS THE PATIENT BEEN EDUCATED REGARDING HIS/HER PLAN OF CARE?YES HAS THE PATIENT BEEN EDUCATED REGARDING PAIN, THE RISK FOR PAIN, THE IMPORTANCE OF EFFECTIVE PAIN MANAGEMENT, AND THE PAIN ASSESSMENT PROCESS?YES REVIEWED 02/26/18 0920 BVREVIEWED WITH PT 06/25/18 0915 LASREVIEWED WITH PATIENT 08/31/18 1001 JSREVIEWED WITH PT 09/28/18 0903 BVREVIEWED WITH PATIENT 11/10/18 0926 JS. HOSPITALIZATION/MAJOR DIAGNOSTIC PROCEDURE SLEEP STUDY MENTAL HEALTH 2011 REVIEW OF SYSTEMS REVIEWED BY: PROVIDER: MICHAEL SOTELO . CONSTITUTIONAL: ANY CHANGE IN YOUR MEDICAL CONDITION? NO . CHILLS NO . FEVER NO . INFECTION: DO YOU HAVE NEW INFECTIONS? NO . DO YOU HAVE HISTORY OF MRSA? NO . MUSCULOSKELETAL: ANY NEW PATTERNS OF PAIN OR NUMBNESS? NO . GASTROENTEROLOGY: ANY NEW CHANGE IN BOWEL CONTROL? NO . GENITOURINARY: ANY NEW CHANGE IN BLADDER CONTROL? NO . IS THERE A CHANCE YOU COULD BE ? NO . HEMATOLOGY/LYMPH: DO YOU TAKE ANY BLOOD THINNERS? (FOR EXAMPLE- COUMADIN, PLAVIX, AGGRENOX, PLATEL, PRADAXA, OR XARELTO) NO . WHEN WAS YOUR LAST DOSE? DATE: TIME: . NEUROLOGY: HAVE YOU FALLEN IN THE PAST 12 MONTHS? NO . ANY NEW EXTREMITY NUMBNESS OR WEAKNESS? NO . CARDIOLOGY: DO YOU HAVE A PACEMAKER OR DEFIBRILLATOR? NO . RESPIRATORY: HAVE YOU BEEN SICK IN THE PAST WEEK? NO . FEVER NO . FLU LIKE SYMPTOMS? NO . COUGH NO . INTEGUMENTARY: DO YOU HAVE ANY RASHES OR OPEN SORES? NO . ALLERGIC/IMMUNO: ARE YOU ALLERGIC TO IV DYE? NO . ANY NEW ALLERGIES? NO . PSYCHIATRIC: DO YOU HAVE THOUGHTS OF HURTING YOURSELF OR SOMEONE ELSE? NO . ARE YOU ABUSED, NEGLECTED, OR IN AN UNSAFE ENVIRONMENT? NO . ENDOCRINOLOGY: ARE YOU DIABETIC? NO . OTHER: DO YOU NEED ANY PRESCRIPTIONS? NO . IF YES, PLEASE LIST: ____ . ANY NEW PROBLEMS WITH YOUR MEDICATIONS? NO . WHEN DID YOU LAST EAT? ____ . WHEN DID YOU LAST DRINK? ____ . WHAT DID YOU LAST DRINK? ____ . NAME OF PERSON DRIVING YOU HOME? ____ . DO YOU HAVE ANY OTHER QUESTIONS OR CONCERNS NO . VITAL SIGNS WT 209 LBS, HT 68 IN, BMI 31.77 INDEX, BP 149/78 MM HG, HR 86 /MIN, RR 16 /MIN, TEMP 99.2 F, OXYGEN SAT % 97, REVIEWED BY: EM. EXAMINATION GENERAL EXAMINATION: LUNGS:LUNG SOUNDS ARE CLEAR . HEART:HEART RATE REGULAR . MUSCULOSKELETAL:*, MUSCLE STRENGTH TESTING 5/5 BILATERAL LOWER EXTREMITIES., , PALPATION: POSITIVE FOR PAIN OVER L/S SPINE. POSITIVE FOR PAIN OVER L/S PARSPINALS.SPECIFIC POINT TENDERNESS OVER BILAT L4/5-L5/S1 LUMBR FACETS WITH FACET LOADING R>L. DIAGNOSTIC TESTS REVIEWEDMRI L/S SPINE-08/08/17. DIAGNOSTIC:MRI L/S SPINE . ASSESSMENTS SPONDYLOSIS OF LUMBAR REGION WITHOUT MYELOPATHY OR RADICULOPATHY - M47.816 (PRIMARY) TREATMENT SPONDYLOSIS OF LUMBAR REGION WITHOUT MYELOPATHY OR RADICULOPATHY NOTES: RIGHT L4/5-L5/S1 DIAGNOSTIC FACET BLOCK. PROCEDURE CODES FA211 ESTABILISHED PATIENT [facility] FACILITY CHARGE DISPOSITION & COMMUNICATION FOLLOW UP POST (REASON: RIGHT L4/5-L5/S1 DIAGNOSTIC FACET BLOCK) ELECTRONICALLY SIGNED BY ASHLEIGH BARILLAS ON 01/03/2019 AT 04:06 PM EST DISCLAIMER : THIS IS A VISIT SUMMARY EXTRACTED FROM THE [employer] CHART. IT IS NOT A COPY OF THE [employer] PROGRESS NOTE. SARAHD
== END ==
LOC: M PAIN 15:15
PROVIDERS: ATTEND Nurse Practitioner Family
DX: M47.816 Spondylosis without myelopathy or radiculopathy, lumbar region (principal); Z86.59 Personal history of other mental and behavioral disorders; G25.81 Restless legs syndrome; J44.9 Chronic obstructive pulmonary disease, unspecified; K22.70 Barrett's esophagus without dysplasia; F17.210 Nicotine dependence, cigarettes, uncomplicated; Z88.8 Allergy status to other drugs, medicaments and biological substances; Z79.899 Other long term (current) drug therapy

== ENCOUNTER → 2019-01-05 | Outpatient (CLI) | payer OTHER ==
[~2019-01-05] MED LIST changes: +BUPIVACAINE HCL 0.25% 30 ML VIAL As Ordered ONE; +ISOVUE-M 300 61% 15ML VIAL (Q9967) As Ordered ONE; +LIDOCAINE 1% SDV INJ 30 ML VIAL As Ordered ONE
--- NOTE | 2019-01-05 11:47 | REP ---
Partial lumbar spine series: Two views. . History: Injection procedure for pain. 15 seconds of fluoroscopy time is reported. Findings: A sequence of two fluoroscopically obtained last image hold procedural spot radiographs of the lumbar spine document needle position and contrast injection associated with injection procedure. Electronically Signed by Jv Cagle MD 01/05/2019 11:39 A
--- NOTE | 2019-01-17 00:26 | ECWPNPC ---
PATIENT NAME: CARLITO HUA : 1970 GENDER: MALE VISIT DATE: 01/05/2019 DISCHARGE DATE: 01/05/19 1111 VISIT LOCKED DATE TIME: PHYSICIAN: SHELIA VILLASENOR MD RESOURCE: SHELIA VILLASENOR MD REASON FOR APPOINTMENT 1. RIGHT L4/5-L5/S1 DIAGNOSTIC FACET BLOCK. HISTORY OF PRESENT ILLNESS HISTORY OF PRESENT ILLNESS: PAIN THE PATIENT DESCRIBES THE PAIN... FALL RISK SCREENING: SCREENING : NO FALLS IN THE PAST YEAR. CURRENT MEDICATIONS TAKING TIZANIDINE HCL 4 MG TABLET 1 TABLET NEEDED ORALLY BID, NOTES: 01/04/19 TAKING BACLOFEN 20 MG TABLET 2 TABLET WITH FOOD OR MILK ORALLY EVERY 8 HRS, NOTES: 01/04/19 TAKING RIBOFLAVIN 100 MG TABLET 2 TABLET WITH A MEAL ORALLY TWICE A DAY, NOTES: 01/04/19 TAKING MAGNESIUM 400 MG CAPSULE ORALLY TWICE DAILY, NOTES: 01/04/19 TAKING TOPIRAMATE 100 MG TABLET 1 TABLET ORALLY NIGHTLY, NOTES: 01/04/19 TAKING TOPIRAMATE 50 MG TABLET 1 TABLET ORALLY IN MORNING, NOTES: 01/04/19 TAKING POTASSIUM CHLORIDE 10 MEQ CAPSULE EXTENDED RELEASE 1 CAPSULE WITH FOOD ORALLY ONCE A DAY, NOTES: 01/04/19 TAKING ATENOLOL 25 MG TABLET 1 TABLET ORALLY ONCE A DAY, NOTES: 01/04/19 TAKING FISH OIL 1000 MG CAPSULE 1 CAPSULE ORALLY TID, NOTES: 01/04/19 TAKING VITAMIN B COMPLEX - TABLET ORALLY , NOTES: 01/04/19 TAKING CRESTOR 40 MG TABLET 1 TABLET ORALLY ONCE A DAY, NOTES: 01/04/19 TAKING OMEPRAZOLE 10 MG CAPSULE DELAYED RELEASE 1 CAPSULE ORALLY BID, NOTES: 01/04/19 TAKING BOTOX 200 UNIT SOLUTION RECONSTITUTED INJECTION , NOTES: LAST WEEK TAKING DULOXETINE HCL 30 MG CAPSULE DELAYED RELEASE PARTICLES 1 CAPSULE ORALLY ONCE A DAY, NOTES: 01/04/19 TAKING COMBIVENT 120-20 MCG/ACT AEROSOL 2 PUFFS INHALATION FOUR TIMES A DAY, NOTES: 01/04/19 TAKING SYMBICORT 80-4.5 MCG/ACT AEROSOL 2 PUFFS INHALATION TWICE A DAY, NOTES: 01/04/19 TAKING VIAGRA 100 MG TABLET 1 CAP(S) ORALLY DIRECTED, NOTES: NONE LATELY MEDICATION LIST REVIEWED AND RECONCILED WITH THE PATIENT PAST MEDICAL HISTORY DEGENERATIVE DISC DISEASE ED ANXIETY, PTSD HEADACHES 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 SOCIAL HISTORY GENERAL: TOBACCO USE ARE YOU A:CURRENT SMOKER ARE YOU INTERESTED IN QUITTING?READY TO QUIT CURRENTLY TRYING TO QUIT, USING NICOTINE LOZENGES AND PATCHES AND IS CUTTING BACK COUNSELED THE PATIENT ON TOBACCO USE, CESSATION [id number]/05/2019 PATIENT COUNSELED ON THE DANGERS OF TOBACCO USE AND URGED TO QUIT:01/05/2019 ALCOHOL SCREENING DID YOU HAVE A DRINK CONTAINING ALCOHOL IN THE PAST YEAR?NO POINTS0 INTERPRETATIONNEGATIVE RECREATIONAL DRUG USE DRUG USE?NO CAFFEINE CAFFEINE USE?YES HOW OFTEN AND HOW MUCH? HAS 1-2 CUPS OF COFFEE DAILY [employer]OROASTRIAN[employer] [id number] NONE LANGUAGE LANGUAGES SPOKEN:MACEDONIAN LEARNING BARRIERS / SPECIAL NEEDS BARRIERS TO LEARNING?NO HEARING IMPAIRED?YES : SLIGHT HEARING IMPAIRED VISION IMPAIRED?YES : CORRECTIVE LENSES READINESS TO LEARN?YES LEARNING PREFERENCES?NO EMOTIONAL BARRIERS?NO SPECIAL DEVICES?NO CIRCULAR KNITTER HELPER NEEDED?NO DIET: REGULAR. PAIN CLINIC PFS, CLERGY, PUBLIC HEALTH REFERRALS PFS REFERRAL NEEDED?NO CLERGY REFERRAL NEEDED?NO PUBLIC HEALTH REFERRAL NEEDED?NO WAS THE PROVIDER NOTIFIED OF ANY PERTINENT INFO?YES HAS THE PATIENT BEEN EDUCATED REGARDING HIS/HER PLAN OF CARE?YES HAS THE PATIENT BEEN EDUCATED REGARDING PAIN, THE RISK FOR PAIN, THE IMPORTANCE OF EFFECTIVE PAIN MANAGEMENT, AND THE PAIN ASSESSMENT PROCESS?YES ADVANCE DIRECTIVE ADVANCE DIRECTIVE DISCUSSED WITH PATIENT:YES PT DECLINES HCP INFORMATION. REVIEWED 02/26/18 0920 BVREVIEWED WITH PT 06/25/18 0915 LASREVIEWED WITH PATIENT 08/31/18 1001 JSREVIEWED WITH PT 09/28/18 0903 BVREVIEWED WITH PATIENT 11/10/18 0926 JS. HOSPITALIZATION/MAJOR DIAGNOSTIC PROCEDURE SLEEP STUDY MENTAL HEALTH 2011 REVIEW OF SYSTEMS REVIEWED BY: PROVIDER: . CONSTITUTIONAL: ANY CHANGE IN YOUR MEDICAL CONDITION? NO . CHILLS NO . FEVER NO . INFECTION: DO YOU HAVE NEW INFECTIONS? NO . DO YOU HAVE HISTORY OF MRSA? NO . MUSCULOSKELETAL: ANY NEW PATTERNS OF PAIN OR NUMBNESS? NO . GASTROENTEROLOGY: ANY NEW CHANGE IN BOWEL CONTROL? NO . GENITOURINARY: ANY NEW CHANGE IN BLADDER CONTROL? NO . IS THERE A CHANCE YOU COULD BE ? NO . HEMATOLOGY/LYMPH: DO YOU TAKE ANY BLOOD THINNERS? (FOR EXAMPLE- COUMADIN, PLAVIX, AGGRENOX, PLATEL, PRADAXA, OR XARELTO) NO . WHEN WAS YOUR LAST DOSE? DATE: TIME: . NEUROLOGY: HAVE YOU FALLEN IN THE PAST 12 MONTHS? NO . ANY NEW EXTREMITY NUMBNESS OR WEAKNESS? NO . CARDIOLOGY: DO YOU HAVE A PACEMAKER OR DEFIBRILLATOR? NO . RESPIRATORY: HAVE YOU BEEN SICK IN THE PAST WEEK? NO . FEVER NO . FLU LIKE SYMPTOMS? NO . COUGH NO . INTEGUMENTARY: DO YOU HAVE ANY RASHES OR OPEN SORES? NO . ALLERGIC/IMMUNO: ARE YOU ALLERGIC TO IV DYE? NO . ANY NEW ALLERGIES? NO . PSYCHIATRIC: DO YOU HAVE THOUGHTS OF HURTING YOURSELF OR SOMEONE ELSE? NO . ARE YOU ABUSED, NEGLECTED, OR IN AN UNSAFE ENVIRONMENT? NO . ENDOCRINOLOGY: ARE YOU DIABETIC? NO . OTHER: DO YOU NEED ANY PRESCRIPTIONS? NO . IF YES, PLEASE LIST: ____ . ANY NEW PROBLEMS WITH YOUR MEDICATIONS? NO . WHEN DID YOU LAST EAT? 01/04/191999 . WHEN DID YOU LAST DRINK? 01/05/19 0500 . WHAT DID YOU LAST DRINK? WATER . NAME OF PERSON DRIVING YOU HOME? VIKTOR . DO YOU HAVE ANY OTHER QUESTIONS OR CONCERNS NO . VITAL SIGNS WT 206.8 LBS, HT 68 IN, BMI 31.44 INDEX, BP 132/80 MM HG, HR 87 /MIN, RR 18 /MIN, TEMP 97.5 F, OXYGEN SAT % 98%, NA INITIALS HI 09:11, REVIEWED BY: Sherrill Allison ASSESSMENTS SPONDYLOSIS OF LUMBAR REGION WITHOUT MYELOPATHY OR RADICULOPATHY - M47.816 (PRIMARY) SPONDYLOSIS OF LUMBOSACRAL REGION WITHOUT MYELOPATHY OR RADICULOPATHY - M47.817 TREATMENT SPONDYLOSIS OF LUMBAR REGION WITHOUT MYELOPATHY OR RADICULOPATHY SMC FACET BLOCK (PAIN)[id number] PROCEDURES PN LUMBAR FACET BLOCK DIAGNOSTIC PRE PROCEDURE DIAGNOSIS LUMBAR SPONDYLOSIS, LUMBOSACRAL SPONDYLOSIS POST PROCEDURE DIAGNOSIS LUMBAR SPONDYLOSIS, LUMBOSACRAL SPONDYLOSIS PROCEDURE RIGHT L4-L5 AND RIGHT L5-S1 FACET BLOCK DIAGNOSTIC NUMBER [address] SHELIA VILLASENOR TIRE CHANGER [employer] NONE ANESTHESIA LOCAL PRE PROCEDURE NOTE THE PATIENT WITH HISTORY OF CHRONIC LOW BACK PAIN. I EVALUATED THE PATIENT AND REVIEWED THE CHART. I WENT OVER THE RISKS, ALTERNATIVES, AND BENEFITS ASSOCIATED WITH THIS PROCEDURE. THE PATIENT WOULD LIKE TO PROCEED AND GAVE CONSENT TO PERFORM THE PROCEDURE. AGREED WITH THE PATIENT WE ARE DOING THIS PROCEDURE TO DETERMINE IF THE PATIENT IS A CANDIDATE FOR A RADIOFREQUENCY ABLATION OF THE FACETS JOINTS. THE PATIENT DENIES UNEXPLAINABLE WEIGHT LOSS, FEVER, CHILLS, OR NEW CHANGES IN URINARY OR BOWEL CONTROL DESCRIPTION OF PROCEDURE THE PATIENT WAS BROUGHT TO THE PROCEDURE ROOM AND PLACED IN THE PRONE POSITION. THE LUMBOSACRAL AREA WAS CLEANED WITH CHLORAPREP SOLUTION AND DRAPED ASEPTICALLY. THE PROCEDURE WAS DONE UNDER STERILE CONDITIONS. I CHECKED LATERALITY AND THE LEVEL WHERE THE PROCEDURE WAS GOING TO BE PERFORMED WITH THE PATIENT AND THE SUPPORTING STAFF AT THE MOMENT OF THE TIME OUT IN THE PROCEDURE ROOM. UNDER FLUOROSCOPIC GUIDANCE, TARGETS WERE SELECTED AT THE INTERSECTION OF THE RIGHT TRANSVERSE PROCESS OF L4, L5 AND ALA OF S1 WITH ITS RESPECTIVE SUPERIOR ARTICULAR PROCESS. LIDOCAINE WAS USED TO NUMB THE SKIN AND THE SUBCUTANEOUS TISSUE BELOW IT. SPINAL NEEDLE, 22-GAUGE WAS ADVANCED UNDER FLUOROSCOPIC GUIDANCE AND FOLLOWING PATIENT FEEDBACK UNTIL THE TARGETS WERE REACHED. POSITION OF THE NEEDLES WAS VERIFIED WITH AP AND LATERAL VIEWS. AFTER PROPER POSITION OF THE NEEDLES WAS ACHIEVED, ISOVUE-M DYE 30% 0.1 ML WAS INJECTED AT EACH SITE SHOWING ADEQUATE SPREAD OF THE DYE. THEN A SOLUTION OF 0.4 ML OF BUPIVACAINE 0.25% WAS INJECTED AT EACH SITE. THERE WAS NO EVIDENCE OF BLOOD, PARESTHESIA OR CEREBROSPINAL FLUID DURING THE PROCEDURE. THE PATIENT WAS SENT TO THE RECOVERY ROOM. THE PATIENT WAS MOVING THE EXTREMITIES AND DOING WELL. THERE WAS NO COMPLICATION DURING THE PROCEDURE. FLUOROSCOPY TIME WAS 15 SECONDS POST PROCEDURE NOTE THE PATIENT WILL DOCUMENT HIS PAIN LEVEL AND RESPONSE TO THIS PROCEDURE EVERY 30 MINUTES. THE PATIENT WILL BE SEEN IN A FOLLOW UP IN THE NEXT FEW WEEKS. FURTHER DETERMINATION FOR HIS CASE WILL BE DONE AT THE NEXT VISIT. INSTRUCTIONS WERE GIVEN, QUESTIONS WERE ANSWERED, AND THE PATIENT EXPRESSED UNDERSTANDING AND AGREED WITH THE PLAN. I, YASMEEN DE LEÓN, DOCUMENTED THE ABOVE INFORMATION ACTING A SCRIBE FOR DR. VILLASENOR. I HAVE REVIEWED THE ABOVE DOCUMENT, WRITTEN BY YASMEEN WEIRIBSherrill AND I VERIFY THAT IT IS ACCURATE. PROCEDURE CODES 6045F RADXPS IN END [id number] PXD [id number] INJ PARAVERT F JNT L/S 1 LEV, MODIFIERS: [place] [id number] INJ PARAVERT F JNT L/S 2 LEV, MODIFIERS: RT DISPOSITION & COMMUNICATION FOLLOW UP 3 WEEKS ELECTRONICALLY SIGNED BY SHELIA VILLASENOR MD, ON 01/16/2019 AT 07:30 PM EDT DISCLAIMER : THIS IS A VISIT SUMMARY EXTRACTED FROM THE [employer] CHART. IT IS NOT A COPY OF THE [employer] PROGRESS NOTE. MTDD
== END ==
LOC: M PAIN 08:45
PROVIDERS: ATTEND Anesthesiology
DX: G89.29 Other chronic pain (principal); M47.816 Spondylosis without myelopathy or radiculopathy, lumbar region; M47.817 Spondylosis without myelopathy or radiculopathy, lumbosacral region; J44.9 Chronic obstructive pulmonary disease, unspecified; K22.70 Barrett's esophagus without dysplasia; G25.81 Restless legs syndrome; F17.210 Nicotine dependence, cigarettes, uncomplicated; Z79.899 Other long term (current) drug therapy; Z88.8 Allergy status to other drugs, medicaments and biological substances; Z86.59 Personal history of other mental and behavioral disorders
CPT/HCPCS: 64493; 64494; Q9967

== ENCOUNTER → 2019-01-20 | Outpatient (CLI) | payer OTHER ==
[~2019-01-20] MED LIST changes: -BUPIVACAINE HCL 0.25% 30 ML VIAL As Ordered ONE; -ISOVUE-M 300 61% 15ML VIAL (Q9967) As Ordered ONE; -LIDOCAINE 1% SDV INJ 30 ML VIAL As Ordered ONE
--- NOTE | 2019-01-22 01:33 | ECWPNPC ---
PATIENT NAME: CARLITO HUA : 1970 GENDER: MALE VISIT DATE: 01/20/2019 DISCHARGE DATE: 01/20/19 1332 VISIT LOCKED DATE TIME: PHYSICIAN: MARIBELL GARZA RESOURCE: MARIBELL GARZA REASON FOR APPOINTMENT 1. POST PROCEDURE HISTORY OF PRESENT ILLNESS HISTORY OF PRESENT ILLNESS: HERE FOR POST PROCEDURE F/U.HAD BILAT. L4/5-L5/S1 DIAGNOSTIC BLOCK ON 12/08/18.HOURLY PAIN DIARY REVIEWED.RATING PAIN VAS 7/10. PAIN THE PATIENT DESCRIBES THE PAIN... ALSO HAD RIGHT SIDED DIAGNOSTIC BLOCK ON 01/05/19.HOURLY PAINS SCORES VARIED FROM 6-7.PATIENT ALSO HAS CONCERSNS ABOUT ONGOING NECK PAIN THAT IS MOSTLY BILATERAL. FALL RISK SCREENING: SCREENING : NO FALLS IN THE PAST YEAR. CURRENT MEDICATIONS TAKING TIZANIDINE HCL 4 MG TABLET 1 TABLET NEEDED ORALLY BID TAKING BACLOFEN 20 MG TABLET 2 TABLET WITH FOOD OR MILK ORALLY EVERY 8 HRS TAKING RIBOFLAVIN 100 MG TABLET 1 TABLET WITH A MEAL ORALLY TWICE A DAY TAKING MAGNESIUM 400 MG CAPSULE ORALLY TWICE DAILY TAKING TOPIRAMATE 100 MG TABLET 1 TABLET ORALLY NIGHTLY TAKING TOPIRAMATE 50 MG TABLET 1 TABLET ORALLY IN MORNING TAKING POTASSIUM CHLORIDE 10 MEQ CAPSULE EXTENDED RELEASE 1 CAPSULE WITH FOOD ORALLY ONCE A DAY TAKING ATENOLOL 25 MG TABLET 1 TABLET ORALLY ONCE A DAY TAKING FISH OIL 1000 MG CAPSULE 1 CAPSULE ORALLY TID TAKING VITAMIN B COMPLEX - TABLET ORALLY TAKING CRESTOR 40 MG TABLET 1 TABLET ORALLY ONCE A DAY TAKING OMEPRAZOLE 10 MG CAPSULE DELAYED RELEASE 1 CAPSULE ORALLY BID TAKING BOTOX 200 UNIT SOLUTION RECONSTITUTED INJECTION Q 3 MONTHS AT THE AL TAKING DULOXETINE HCL 30 MG CAPSULE DELAYED RELEASE PARTICLES 3 CAPSULES ORALLY ONCE A DAY TAKING COMBIVENT 120-20 MCG/ACT AEROSOL 2 PUFFS INHALATION FOUR TIMES A DAY TAKING SYMBICORT 80-4.5 MCG/ACT AEROSOL 2 PUFFS INHALATION TWICE A DAY TAKING VIAGRA 100 MG TABLET 1 CAP(S) ORALLY DIRECTED MEDICATION LIST REVIEWED AND RECONCILED WITH THE PATIENT PAST MEDICAL HISTORY DEGENERATIVE DISC DISEASE ED ANXIETY, PTSD HEADACHES HEARING IMPAIMENT LOW BACK AND NECK PAIN RESTLESS LEG SYNDROME COPD W/O2 2L N/C AT NIGHT FRANCES'S ESOPHAGUS ALLERGIES PRAZOSIN HCL: URINARY LEAKAGE - SIDE EFFECTS SURGICAL HISTORY BILATERAL INGUINAL HERNIORRHAPHY (AGE 1) COLONOSCOPY 05/20 FAMILY HISTORY FATHER: 51 YRS, CHLORINE ASPHYXIATION MOTHER: 60 YRS, BRAIN CANCER SIBLINGS: 38/35 YRS, CAR ACCIDENT/SURGICAL COMPLICATIONS NEGATIVE FOR PROSTATE CANCER OR ANY OTHER UROLOGIC DISEASE. SOCIAL HISTORY GENERAL: TOBACCO USE ARE YOU A:CURRENT SMOKER ARE YOU INTERESTED IN QUITTING?READY TO QUIT CURRENTLY TRYING TO QUIT, USING NICOTINE LOZENGES AND PATCHES AND IS CUTTING BACK COUNSELED THE PATIENT ON TOBACCO USE, CESSATION [id number]/20/2019 PATIENT COUNSELED ON THE DANGERS OF TOBACCO USE AND URGED TO QUIT:01/20/2019 LATEX QUESTIONNAIRE LATEX ALLERGY : HAVE YOU EVER DEVELOPED ANY TYPE OF REACTION AFTER HANDLING LATEX PRODUCTS SUCH RUBBER GLOVES, CONDOMS, DIAPHRAGMS, BALLOONS, SOCKS, OR UNDERWEAR?NO LATEX ALLERGY : HAVE YOU EVER DEVELOPED ANY TYPE OF REACTION DURING OR AFTER DENTAL APPOINTMENT, VAGINAL/RECTAL EXAMINATION, SURGICAL PROCEDURE, OR ANY OTHER EXPOSURE?NO LATEX RISK : HAVE YOU EVER HAD ANY DIFFICULTY BREATHING OR HIVES AFTER EATING OR HANDLING ANY FRUITS, OR VEGETABLES; SUCH KIWI, BANANAS, STONE FRUITS, OR CHESTNUTSNO LATEX RISK : DO YOU HAVE A PREVIOUS PERSONAL HISTORY OF MORE THAN NINE SURGERIES, SPINA BIFIDA, OR REPEATED CATHERTIZATIONS? NO LATEX RISK : ARE YOU FREQUENTLY EXPOSED TO LATEX PRODUCTS IN YOUR OCCUPATION?NO DATE ASKED : 01/20/2019 ALCOHOL SCREENING DID YOU HAVE A DRINK CONTAINING ALCOHOL IN THE PAST YEAR?NO POINTS0 INTERPRETATIONNEGATIVE RECREATIONAL DRUG USE DRUG USE?NO CAFFEINE CAFFEINE USE?YES HOW OFTEN AND HOW MUCH? HAS 1-2 CUPS OF COFFEE DAILY JEW [id number] NONE LANGUAGE LANGUAGES SPOKEN:KYRGYZ LEARNING BARRIERS / SPECIAL NEEDS BARRIERS TO LEARNING?NO HEARING IMPAIRED?YES : SLIGHT HEARING IMPAIRED VISION IMPAIRED?YES : CORRECTIVE LENSES READINESS TO LEARN?YES LEARNING PREFERENCES?NO EMOTIONAL BARRIERS?NO SPECIAL DEVICES?NO KENNEL WORKER NEEDED?NO DOMESTIC VIOLENCE DO YOU FEEL SAFE IN YOUR ENVIRONMENT?YES DIET: REGULAR. PAIN CLINIC PFS, CLERGY, PUBLIC HEALTH REFERRALS PFS REFERRAL NEEDED?NO CLERGY REFERRAL NEEDED?NO PUBLIC HEALTH REFERRAL NEEDED?NO WAS THE PROVIDER NOTIFIED OF ANY PERTINENT INFO? N/A HAS THE PATIENT BEEN EDUCATED REGARDING HIS/HER PLAN OF CARE?YES HAS THE PATIENT BEEN EDUCATED REGARDING PAIN, THE RISK FOR PAIN, THE IMPORTANCE OF EFFECTIVE PAIN MANAGEMENT, AND THE PAIN ASSESSMENT PROCESS?YES ADVANCE DIRECTIVE ADVANCE DIRECTIVE DISCUSSED WITH PATIENT:YES 01/20/19 PT DOES NOT HAVE ANY ADVANCED DIRECTIVES AND HE DECLINES INFORMATION ON HCP AT THIS TIME. AD REVIEWED 02/26/18 0920 BVREVIEWED WITH PT 06/25/18 0915 LASREVIEWED WITH PATIENT 08/31/18 1001 JSREVIEWED WITH PT 09/28/18 0903 BVREVIEWED WITH PATIENT 11/10/18 0926 JS. HOSPITALIZATION/MAJOR DIAGNOSTIC PROCEDURE SLEEP STUDY MENTAL HEALTH 2011 REVIEW OF SYSTEMS REVIEWED BY: PROVIDER: ANGEL Raya CONSTITUTIONAL: ANY CHANGE IN YOUR MEDICAL CONDITION? NO . CHILLS NO . FEVER NO . INFECTION: DO YOU HAVE NEW INFECTIONS? NO . DO YOU HAVE HISTORY OF MRSA? NO . MUSCULOSKELETAL: ANY NEW PATTERNS OF PAIN OR NUMBNESS? NO . GASTROENTEROLOGY: ANY NEW CHANGE IN BOWEL CONTROL? NO . GENITOURINARY: ANY NEW CHANGE IN BLADDER CONTROL? NO . IS THERE A CHANCE YOU COULD BE ? NO . HEMATOLOGY/LYMPH: DO YOU TAKE ANY BLOOD THINNERS? (FOR EXAMPLE- COUMADIN, PLAVIX, AGGRENOX, PLATEL, PRADAXA, OR XARELTO) NO . WHEN WAS YOUR LAST DOSE? DATE: TIME: . NEUROLOGY: HAVE YOU FALLEN IN THE PAST 12 MONTHS? NO . ANY NEW EXTREMITY NUMBNESS OR WEAKNESS? NO . CARDIOLOGY: DO YOU HAVE A PACEMAKER OR DEFIBRILLATOR? NO . RESPIRATORY: HAVE YOU BEEN SICK IN THE PAST WEEK? NO . FEVER NO . FLU LIKE SYMPTOMS? NO . COUGH NO . INTEGUMENTARY: DO YOU HAVE ANY RASHES OR OPEN SORES? NO . ALLERGIC/IMMUNO: ARE YOU ALLERGIC TO IV DYE? NO . ANY NEW ALLERGIES? NO . PSYCHIATRIC: DO YOU HAVE THOUGHTS OF HURTING YOURSELF OR SOMEONE ELSE? NO . ARE YOU ABUSED, NEGLECTED, OR IN AN UNSAFE ENVIRONMENT? NO . ENDOCRINOLOGY: ARE YOU DIABETIC? NO . OTHER: DO YOU NEED ANY PRESCRIPTIONS? NO . IF YES, PLEASE LIST: ____ . ANY NEW PROBLEMS WITH YOUR MEDICATIONS? NO . WHEN DID YOU LAST EAT? ____ . WHEN DID YOU LAST DRINK? ____ . WHAT DID YOU LAST DRINK? ____ . NAME OF PERSON DRIVING YOU HOME? ____ . DO YOU HAVE ANY OTHER QUESTIONS OR CONCERNS NO . VITAL SIGNS WT 209.6 LBS, HT 68 IN, BMI 31.87 INDEX, BP 133/82 MM HG, HR 100 /MIN, RR 18 /MIN, TEMP 96.9 F, OXYGEN SAT % 95%, SAFE IN ENV? (Y/N) Y, NA INITIALS SC 12:06, REVIEWED BY: NANCY. EXAMINATION GENERAL EXAMINATION: GENERAL APPEARANCE:NO ACUTE DISTRESS, WELL NOURISHED AND HYDRATED. PSYCHAPPROPRIATE MOOD AND AFFECT . NECK: LIMITED EXTENSION, LIMITED ROTATION TO LEFT TENDER TRIGGER POINTS ALONG POSTERIOR NECK C-5-6 AND BILATERAL PARACERVICAL MUSCLES . HEART:NO MURMURS, REGULAR RATE AND RHYTHM. BACK:NO CVA TENDERNESS, UNREMARKABLE NO LUMBAR TENDERNESS SLR NEG BILATERAL. 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 I HAVE SUGGESTED OF CERVICAL TPI TO PATIENT AND HE AGREES. INTERVERTEBRAL DISC DISORDERS WITH RADICULOPATHY, LUMBAR REGION CLINICAL NOTES: CHART REVIEWED WITH MICHAEL HERNANDEZ. PATIENT ADVISED HE IS NOT A CANDIDIATE FOR RADIO FREQUENCY TREATMENT.PLAN: CONSERVATIVE TREATMENT FOR LOWER BACK. ADVISED IF PAIN WORSENS OR CHANGES, TO CONTACT PAIN MANAGEMENT. . OTHERS NOTES: BILATERAL CERVICAL TPI. PROCEDURE CODES [id number] ESTABILISHED PATIENT [facility] CHARGE DISPOSITION & COMMUNICATION FOLLOW UP POST PROCEDURE (REASON: BILATERAL CERVICAL TPI) ELECTRONICALLY SIGNED BY ASHLEIGH YARBROUGH ON 01/21/2019 AT 11:46 AM EDT DISCLAIMER : THIS IS A VISIT SUMMARY EXTRACTED FROM THE [employer] CHART. IT IS NOT A COPY OF THE [employer] PROGRESS NOTE. CORIN
== END ==
LOC: M PAIN 11:45
PROVIDERS: ATTEND Nurse Practitioner Family
DX: M50.13 Cervical disc disorder with radiculopathy, cervicothoracic region (principal); M51.16 Intervertebral disc disorders with radiculopathy, lumbar region; M51.17 Intervertebral disc disorders with radiculopathy, lumbosacral region; Z86.59 Personal history of other mental and behavioral disorders; G25.81 Restless legs syndrome; J44.9 Chronic obstructive pulmonary disease, unspecified; F17.210 Nicotine dependence, cigarettes, uncomplicated; Z88.8 Allergy status to other drugs, medicaments and biological substances; Z79.899 Other long term (current) drug therapy

== ENCOUNTER → 2019-04-22 | Outpatient (CLI) | payer OTHER ==
[~2019-04-22] MED LIST changes: -/BACL20TA PO; -/ROPI5TA OR; +BACL1TAB9 PO; +ETOD200C31 PO; -ETOD20CA PO; +REQU1TAB15 OR
--- NOTE | 2019-05-04 01:11 | ECWPNPC ---
PATIENT NAME: CARLITO HUA : 1970 GENDER: MALE VISIT DATE: 04/22/2019 DISCHARGE DATE: 04/22/19 1601 VISIT LOCKED DATE TIME: PHYSICIAN: SHELIA VILLASENOR MD RESOURCE: SHELIA VILLASENOR MD REASON FOR APPOINTMENT 1. FOLLOW UP HISTORY OF PRESENT ILLNESS HISTORY OF PRESENT ILLNESS: PAIN THE PATIENT DESCRIBES THE PAIN... 48 YEAR OLD MALE PATIENT WITH A HISTORY OF CHRONIC NECK PAIN. THE PATIENT DESCRIBES THE PAIN ACHING, STABBING, SORE, SHARP, TENDER, AND CONTINUOUS WITH A PAIN SCORE OF 7-9/10 DEPENDING ON PHYSICAL ACTIVITY. THE PATIENT STATES THE PAIN IS MAINLY LOCATED IN HIS LEFT NECK, LEFT SHOULDER, AND THORACIC AREA. THE PATIENT SAYS HE HAS BEEN SUFFERING FROM THIS PAIN FOR OVER 10 YEARS. THE PATIENT HAS HAD CERVICAL EPIDURALS AND TRIGGER POINT INJECTIONS DONE IN THE PAST, WHICH HE SAYS HAS HELPED BRING THE PAIN DOWN FROM A 7/10 TO A 4/10 ON THE PAIN SCALE. PATIENT DENIES UNEXPLAINABLE WEIGHT LOSS, FEVER, CHILLS, NEW CHANGES ON HIS URINARY OR BOWEL CONTROL. FALL RISK SCREENING: SCREENING :NO FALLS REPORTED IN THE LAST YEAR CURRENT MEDICATIONS TAKING TIZANIDINE HCL 4 MG TABLET 1 TABLET NEEDED ORALLY BID TAKING BACLOFEN 20 MG TABLET 2 TABLET WITH FOOD OR MILK ORALLY EVERY 8 HRS TAKING RIBOFLAVIN 100 MG TABLET 1 TABLET WITH A MEAL ORALLY TWICE A DAY TAKING MAGNESIUM 400 MG CAPSULE ORALLY TWICE DAILY TAKING TOPIRAMATE 100 MG TABLET 1 TABLET ORALLY NIGHTLY TAKING TOPIRAMATE 50 MG TABLET 1 TABLET ORALLY IN MORNING TAKING POTASSIUM CHLORIDE 10 MEQ CAPSULE EXTENDED RELEASE 1 CAPSULE WITH FOOD ORALLY ONCE A DAY TAKING ATENOLOL 25 MG TABLET 1 TABLET ORALLY ONCE A DAY TAKING FISH OIL 1000 MG CAPSULE 1 CAPSULE ORALLY TID TAKING VITAMIN B COMPLEX - TABLET ORALLY DAILY TAKING CRESTOR 40 MG TABLET 1 TABLET ORALLY ONCE A DAY TAKING BOTOX 200 UNIT SOLUTION RECONSTITUTED INJECTION Q 3 MONTHS AT THE OR TAKING DULOXETINE HCL 30 MG CAPSULE DELAYED RELEASE PARTICLES 3 CAPSULES ORALLY ONCE A DAY TAKING COMBIVENT 120-20 MCG/ACT AEROSOL 2 PUFFS INHALATION FOUR TIMES A DAY TAKING SYMBICORT 80-4.5 MCG/ACT AEROSOL 2 PUFFS INHALATION TWICE A DAY TAKING VIAGRA 100 MG TABLET 1 CAP(S) ORALLY DIRECTED TAKING PROTONIX 20 MG TABLET DELAYED RELEASE 1 TABLET ORALLY ONCE A DAY TAKING NICOTINE POLACRILEX 2 MG LOZENGE 1 LOZENGE NEEDED MOUTH/THROAT 20 TIME(S) A DAY TAKING NICOTINE 14 MG/24HR PATCH 24 HOUR 1 PATCH TO SKIN TRANSDERMAL ONCE A DAY NOT-TAKING OMEPRAZOLE 10 MG CAPSULE DELAYED RELEASE 1 CAPSULE ORALLY BID MEDICATION LIST REVIEWED AND RECONCILED WITH THE PATIENT PAST MEDICAL HISTORY DEGENERATIVE DISC DISEASE ED ANXIETY, PTSD HEADACHES HEARING IMPAIMENT LOW BACK AND NECK PAIN RESTLESS LEG SYNDROME COPD W/O2 2L N/C AT NIGHT FRANCES'S ESOPHAGUS ALLERGIES PRAZOSIN HCL: URINARY LEAKAGE - SIDE EFFECTS SURGICAL HISTORY BILATERAL INGUINAL HERNIORRHAPHY (AGE 1) COLONOSCOPY 05/20 FAMILY HISTORY FATHER: 51 YRS, CHLORINE ASPHYXIATION MOTHER: 60 YRS, BRAIN CANCER SIBLINGS: 38/35 YRS, CAR ACCIDENT/SURGICAL COMPLICATIONS NEGATIVE FOR PROSTATE CANCER OR ANY OTHER UROLOGIC DISEASE. SOCIAL HISTORY GENERAL: TOBACCO USE ARE YOU A:CURRENT SMOKER ARE YOU INTERESTED IN QUITTING?READY TO QUIT CURRENTLY TRYING TO QUIT, USING NICOTINE LOZENGES AND PATCHES AND IS CUTTING BACK COUNSELED THE PATIENT ON TOBACCO USE, CESSATION [id number]/20/2019 PATIENT COUNSELED ON THE DANGERS OF TOBACCO USE AND URGED TO QUIT:01/20/2019 PAIN CLINIC PFS, CLERGY, PUBLIC HEALTH REFERRALS PFS REFERRAL NEEDED?NO CLERGY REFERRAL NEEDED?NO PUBLIC HEALTH REFERRAL NEEDED?NO WAS THE PROVIDER NOTIFIED OF ANY PERTINENT INFO? N/A HAS THE PATIENT BEEN EDUCATED REGARDING HIS/HER PLAN OF CARE?YES HAS THE PATIENT BEEN EDUCATED REGARDING PAIN, THE RISK FOR PAIN, THE IMPORTANCE OF EFFECTIVE PAIN MANAGEMENT, AND THE PAIN ASSESSMENT PROCESS?YES LATEX QUESTIONNAIRE LATEX ALLERGY : HAVE YOU EVER DEVELOPED ANY TYPE OF REACTION AFTER HANDLING LATEX PRODUCTS SUCH RUBBER GLOVES, CONDOMS, DIAPHRAGMS, BALLOONS, SOCKS, OR UNDERWEAR?NO LATEX ALLERGY : HAVE YOU EVER DEVELOPED ANY TYPE OF REACTION DURING OR AFTER DENTAL APPOINTMENT, VAGINAL/RECTAL EXAMINATION, SURGICAL PROCEDURE, OR ANY OTHER EXPOSURE?NO LATEX RISK : HAVE YOU EVER HAD ANY DIFFICULTY BREATHING OR HIVES AFTER EATING OR HANDLING ANY FRUITS, OR VEGETABLES; SUCH KIWI, BANANAS, STONE FRUITS, OR CHESTNUTSNO LATEX RISK : DO YOU HAVE A PREVIOUS PERSONAL HISTORY OF MORE THAN NINE SURGERIES, SPINA BIFIDA, OR REPEATED CATHERTIZATIONS? NO LATEX RISK : ARE YOU FREQUENTLY EXPOSED TO LATEX PRODUCTS IN YOUR OCCUPATION?NO DATE ASKED : 01/20/2019 CAFFEINE CAFFEINE USE?YES HOW OFTEN AND HOW MUCH? HAS 1-2 CUPS OF COFFEE DAILY ADVANCE DIRECTIVE ADVANCE DIRECTIVE DISCUSSED WITH PATIENT:YES 01/20/19 PT DOES NOT HAVE ANY ADVANCED DIRECTIVES AND HE DECLINES INFORMATION ON HCP AT THIS TIME. AD DIET: REGULAR. PENTECOSTAL [id number] NONE LANGUAGE LANGUAGES SPOKEN:CANADIAN DOMESTIC VIOLENCE DO YOU FEEL SAFE IN YOUR ENVIRONMENT?YES ALCOHOL SCREENING DID YOU HAVE A DRINK CONTAINING ALCOHOL IN THE PAST YEAR?NO POINTS0 INTERPRETATIONNEGATIVE RECREATIONAL DRUG USE DRUG USE?NO LEARNING BARRIERS / SPECIAL NEEDS BARRIERS TO LEARNING?NO HEARING IMPAIRED?YES : SLIGHT HEARING IMPAIRED VISION IMPAIRED?YES : CORRECTIVE LENSES READINESS TO LEARN?YES LEARNING PREFERENCES?NO EMOTIONAL BARRIERS?NO SPECIAL DEVICES?NO AIRLINE LOUNGE RECEPTIONIST NEEDED?NO REVIEWED 02/26/18 0920 BVREVIEWED WITH PT 06/25/18 0915 LASREVIEWED WITH PATIENT 08/31/18 1001 JSREVIEWED WITH PT 09/28/18 0903 BVREVIEWED WITH PATIENT 11/10/18 0926 JS. HOSPITALIZATION/MAJOR DIAGNOSTIC PROCEDURE SLEEP STUDY MENTAL HEALTH 2012 REVIEW OF SYSTEMS REVIEWED BY: PROVIDER: SHELIA VILLASENOR MD . CONSTITUTIONAL: ANY CHANGE IN YOUR MEDICAL CONDITION? NO . CHILLS NO . FEVER NO . INFECTION: DO YOU HAVE NEW INFECTIONS? NO . DO YOU HAVE HISTORY OF MRSA? NO . MUSCULOSKELETAL: ANY NEW PATTERNS OF PAIN OR NUMBNESS? NO . GASTROENTEROLOGY: ANY NEW CHANGE IN BOWEL CONTROL? NO . GENITOURINARY: ANY NEW CHANGE IN BLADDER CONTROL? NO . IS THERE A CHANCE YOU COULD BE ? NO . HEMATOLOGY/LYMPH: DO YOU TAKE ANY BLOOD THINNERS? (FOR EXAMPLE- COUMADIN, PLAVIX, AGGRENOX, PLATEL, PRADAXA, OR XARELTO) NO . WHEN WAS YOUR LAST DOSE? DATE: TIME: . NEUROLOGY: HAVE YOU FALLEN IN THE PAST 12 MONTHS? NO . ANY NEW EXTREMITY NUMBNESS OR WEAKNESS? NO . CARDIOLOGY: DO YOU HAVE A PACEMAKER OR DEFIBRILLATOR? NO . RESPIRATORY: HAVE YOU BEEN SICK IN THE PAST WEEK? NO . FEVER NO . FLU LIKE SYMPTOMS? NO . COUGH NO . INTEGUMENTARY: DO YOU HAVE ANY RASHES OR OPEN SORES? NO . ALLERGIC/IMMUNO: ARE YOU ALLERGIC TO IV DYE? NO . ANY NEW ALLERGIES? NO . PSYCHIATRIC: DO YOU HAVE THOUGHTS OF HURTING YOURSELF OR SOMEONE ELSE? NO . ARE YOU ABUSED, NEGLECTED, OR IN AN UNSAFE ENVIRONMENT? NO . ENDOCRINOLOGY: ARE YOU DIABETIC? NO . OTHER: DO YOU NEED ANY PRESCRIPTIONS? NO . IF YES, PLEASE LIST: ____ . ANY NEW PROBLEMS WITH YOUR MEDICATIONS? NO . WHEN DID YOU LAST EAT? ____ . WHEN DID YOU LAST DRINK? ____ . WHAT DID YOU LAST DRINK? ____ . NAME OF PERSON DRIVING YOU HOME? ____ . DO YOU HAVE ANY OTHER QUESTIONS OR CONCERNS NO . VITAL SIGNS WT 216.4 LBS, HT 68 IN, BMI 32.90 INDEX, BP 143/80 MM HG, HR 93 /MIN, RR 18 /MIN, TEMP 97.9 F, OXYGEN SAT % 97%, NA INITIALS AW 1503, REVIEWED BY: LS. EXAMINATION GENERAL EXAMINATION: PATIENT IS ALERT O X 3 AND COOPERATIVE. PRESENCE OF BANDS OF TISSUE AND TRIGGER POINTS WITH RESTRICTION OF MOVEMENT OF THE NECK, SHOULDER, AND THORACIC AREAS. MRI OF THE CERVICAL SPINE DONE ON 01/11/2016 SHOWS FACET ARTHROPATHY CHANGES. ASSESSMENTS MYALGIA, OTHER SITE - M79.18 (PRIMARY) CERVICALGIA - M54.2 TREATMENT MYALGIA, OTHER SITE CLINICAL NOTES: WE DISCUSSED SEVERAL ISSUES WITH MR. HUA' PAIN MANAGEMENT CASE. DUE TO THE TRIGGER POINTS, BANDS OF TISSUE, AND RESTRICTION OF MOVEMENT, I WOULD LIKE TO MOVE FORWARD WITH A NECK TRIGGER POINT INJECTION AT THIS TIME. WE DISCUSSED THE BENEFITS, RISKS, AND ALTERNATIVES OF THE INJECTION AND THE PATIENT WOULD LIKE TO PROCEED. INSTRUCTIONS WERE GIVEN, QUESTIONS WERE ANSWERED, PATIENT REPORTS UNDERSTANDING AND AGREES WITH THE PLAN. I, DALE SCOTT, DOCUMENTED THE ABOVE INFORMATION ACTING A SCRIBE FOR DR. VILLASENOR. I HAVE REVIEWED THE ABOVE DOCUMENT, WRITTEN BY DALE GONGORA AND I VERIFY THAT IT IS ACCURATE. . PROCEDURE CODES G8427 CURRENT MEDS W/DOSAGES DOCUMENTED G8730 PAIN ASSESS POS TOOL F/U PLAN DOC FA211 ESTABILISHED PATIENT [facility] F[facility]ILITY CHARGE DISPOSITION & COMMUNICATION FOLLOW UP 3 WEEKS (REASON: TPI) ELECTRONICALLY SIGNED BY SHELIA VILLASENOR MD, MD ON 05/03/2019 AT 01:37 PM EDT DISCLAIMER : THIS IS A VISIT SUMMARY EXTRACTED FROM THE [employer] CHART. IT IS NOT A COPY OF THE [employer] PROGRESS NOTE. CORIN
== END ==
LOC: M PAIN 14:30
PROVIDERS: ATTEND Anesthesiology
DX: M79.18 Myalgia, other site (principal); M54.2 Cervicalgia; N52.9 Male erectile dysfunction, unspecified; F41.9 Anxiety disorder, unspecified; F43.10 Post-traumatic stress disorder, unspecified; R51 Headache; G25.81 Restless legs syndrome; M54.5 Low back pain; J44.9 Chronic obstructive pulmonary disease, unspecified; K22.70 Barrett's esophagus without dysplasia; F17.210 Nicotine dependence, cigarettes, uncomplicated; Z79.899 Other long term (current) drug therapy; Z88.8 Allergy status to other drugs, medicaments and biological substances

== ENCOUNTER → 2019-06-02 | Outpatient (CLI) | payer OTHER ==
[~2019-06-02] MED LIST changes: -ALL10TAB28 PO; +ALL10TAB29 PO; +BUPIVACAINE HCL 0.25% 10 ML VIAL As Ordered ONE; +BUPIVACAINE HCL 0.25% 30 ML VIAL As Ordered ONE; +MAGN400T3 PO; -OMEP40CA2 PO; +OMEP40CA97 PO; +PROT1TAB2 PO; +RIBO400T PO; +ROSU40TA4 PO; +TRIAMCINOLONE ACETONIDE SUSP 40 MG/ML VIAL (J3301) As Ordered ONE; +VITATAB73 PO; +diazePAM 5 MG TAB As Ordered ONE; +oxyCODONE 5MG TAB As Ordered ONE
--- NOTE | 2019-06-17 00:47 | ECWPNPC ---
PATIENT NAME: CARLITO HUA : 1970 GENDER: MALE VISIT DATE: 06/02/2019 DISCHARGE DATE: 06/02/19 1132 VISIT LOCKED DATE TIME: PHYSICIAN: SHELIA VILLASENOR MD RESOURCE: SHELIA VILLASENOR MD REASON FOR APPOINTMENT 1. TPI- CHECKING IN HISTORY OF PRESENT ILLNESS HISTORY OF PRESENT ILLNESS: PAIN THE PATIENT DESCRIBES THE PAIN... FALL RISK SCREENING: SCREENING :NO FALLS REPORTED IN THE LAST YEAR CURRENT MEDICATIONS TAKING TIZANIDINE HCL 4 MG TABLET 1 TABLET NEEDED ORALLY BID, NOTES: 06-01-192099 TAKING BACLOFEN 20 MG TABLET 2 TABLET WITH FOOD OR MILK ORALLY EVERY 8 HRS, NOTES: 06-01-192099 TAKING RIBOFLAVIN 100 MG TABLET 1 TABLET WITH A MEAL ORALLY TWICE A DAY, NOTES: 06-01-19899 TAKING MAGNESIUM 400 MG CAPSULE ORALLY TWICE DAILY, NOTES: 06-01-19899 TAKING TOPIRAMATE 100 MG TABLET 1 TABLET ORALLY NIGHTLY, NOTES: 06-02-19899 TAKING TOPIRAMATE 50 MG TABLET 1 TABLET ORALLY IN MORNING, NOTES: 06-01-192099 TAKING POTASSIUM CHLORIDE 10 MEQ CAPSULE EXTENDED RELEASE 1 CAPSULE WITH FOOD ORALLY ONCE A DAY, NOTES: 06-01-19899 TAKING ATENOLOL 25 MG TABLET 1 TABLET ORALLY ONCE A DAY, NOTES: 06-01-19899 TAKING FISH OIL 1000 MG CAPSULE 1 CAPSULE ORALLY TID, NOTES: 06-01-192099 TAKING VITAMIN B COMPLEX - TABLET ORALLY DAILY, NOTES: 06-01-19899 TAKING CRESTOR 40 MG TABLET 1 TABLET ORALLY ONCE A DAY, NOTES: 06-01-19899 TAKING BOTOX 200 UNIT SOLUTION RECONSTITUTED INJECTION Q 3 MONTHS AT THE [place], NOTES: BEEN A WHILE TAKING DULOXETINE HCL 30 MG CAPSULE DELAYED RELEASE PARTICLES 3 CAPSULES ORALLY ONCE A DAY, NOTES: 06-01-192099 TAKING COMBIVENT 120-20 MCG/ACT AEROSOL 2 PUFFS INHALATION FOUR TIMES A DAY, NOTES: NOT LATELY TAKING SYMBICORT 80-4.5 MCG/ACT AEROSOL 2 PUFFS INHALATION TWICE A DAY, NOTES: 06-01-192099 TAKING VIAGRA 100 MG TABLET 1 CAP(S) ORALLY DIRECTED, NOTES: DID NOT ASK TAKING PROTONIX 20 MG TABLET DELAYED RELEASE 1 TABLET ORALLY ONCE A DAY, NOTES: 06-01-19799 NOT-TAKING NICOTINE POLACRILEX 2 MG LOZENGE 1 LOZENGE NEEDED MOUTH/THROAT 20 TIME(S) A DAY, NOTES: NOT LATELY NOT-TAKING NICOTINE 14 MG/24HR PATCH 24 HOUR 1 PATCH TO SKIN TRANSDERMAL ONCE A DAY, NOTES: NOT USING NOW UNKNOWN OMEPRAZOLE 10 MG CAPSULE DELAYED RELEASE 1 CAPSULE ORALLY BID MEDICATION LIST REVIEWED AND RECONCILED WITH THE PATIENT PAST MEDICAL HISTORY DEGENERATIVE DISC DISEASE ED ANXIETY, PTSD HEADACHES HEARING IMPAIMENT LOW BACK AND NECK PAIN RESTLESS LEG SYNDROME COPD W/O2 2L N/C AT NIGHT FRANCES'S ESOPHAGUS ALLERGIES PRAZOSIN HCL: URINARY LEAKAGE - SIDE EFFECTS SURGICAL HISTORY BILATERAL INGUINAL HERNIORRHAPHY (AGE 1) COLONOSCOPY 05/20 FAMILY HISTORY FATHER: 51 YRS, CHLORINE ASPHYXIATION MOTHER: 60 YRS, BRAIN CANCER SIBLINGS: 38/35 YRS, CAR ACCIDENT/SURGICAL COMPLICATIONS NEGATIVE FOR PROSTATE CANCER OR ANY OTHER UROLOGIC DISEASE. SOCIAL HISTORY GENERAL: TOBACCO USE ARE YOU A:CURRENT SMOKER ARE YOU INTERESTED IN QUITTING?READY TO QUIT CURRENTLY TRYING TO QUIT, USING NICOTINE LOZENGES AND PATCHES AND IS CUTTING BACK COUNSELED THE PATIENT ON TOBACCO USE, CESSATION [id number]/20/2019 PATIENT COUNSELED ON THE DANGERS OF TOBACCO USE AND URGED TO QUIT:01/20/2019 PAIN CLINIC PFS, CLERGY, PUBLIC HEALTH REFERRALS PFS REFERRAL NEEDED?NO CLERGY REFERRAL NEEDED?NO PUBLIC HEALTH REFERRAL NEEDED?NO WAS THE PROVIDER NOTIFIED OF ANY PERTINENT INFO? N/A HAS THE PATIENT BEEN EDUCATED REGARDING HIS/HER PLAN OF CARE?YES HAS THE PATIENT BEEN EDUCATED REGARDING PAIN, THE RISK FOR PAIN, THE IMPORTANCE OF EFFECTIVE PAIN MANAGEMENT, AND THE PAIN ASSESSMENT PROCESS?YES LATEX QUESTIONNAIRE LATEX ALLERGY : HAVE YOU EVER DEVELOPED ANY TYPE OF REACTION AFTER HANDLING LATEX PRODUCTS SUCH RUBBER GLOVES, CONDOMS, DIAPHRAGMS, BALLOONS, SOCKS, OR UNDERWEAR?NO LATEX ALLERGY : HAVE YOU EVER DEVELOPED ANY TYPE OF REACTION DURING OR AFTER DENTAL APPOINTMENT, VAGINAL/RECTAL EXAMINATION, SURGICAL PROCEDURE, OR ANY OTHER EXPOSURE?NO LATEX RISK : HAVE YOU EVER HAD ANY DIFFICULTY BREATHING OR HIVES AFTER EATING OR HANDLING ANY FRUITS, OR VEGETABLES; SUCH KIWI, BANANAS, STONE FRUITS, OR CHESTNUTSNO LATEX RISK : DO YOU HAVE A PREVIOUS PERSONAL HISTORY OF MORE THAN NINE SURGERIES, SPINA BIFIDA, OR REPEATED CATHERIZATIONS? NO LATEX RISK : ARE YOU FREQUENTLY EXPOSED TO LATEX PRODUCTS IN YOUR OCCUPATION?NO DATE ASKED : 01/20/2019 CAFFEINE CAFFEINE USE?YES HOW OFTEN AND HOW MUCH? HAS 1-2 CUPS OF COFFEE DAILY ADVANCE DIRECTIVE ADVANCE DIRECTIVE DISCUSSED WITH PATIENT:YES 01/20/19 PT DOES NOT HAVE ANY ADVANCED DIRECTIVES AND HE DECLINES INFORMATION ON HCP AT THIS TIME. AD DIET: REGULAR. ORIENTAL ORTHODOX [id number] NONE LANGUAGE LANGUAGES SPOKEN:SLOV[place] DOMESTIC VIOLENCE DO YOU FEEL SAFE IN YOUR ENVIRONMENT?YES ALCOHOL SCREENING DID YOU HAVE A DRINK CONTAINING ALCOHOL IN THE PAST YEAR?NO POINTS0 INTERPRETATIONNEGATIVE RECREATIONAL DRUG USE DRUG USE?NO LEARNING BARRIERS / SPECIAL NEEDS BARRIERS TO LEARNING?NO HEARING IMPAIRED?YES : SLIGHT HEARING IMPAIRED VISION IMPAIRED?YES : CORRECTIVE LENSES READINESS TO LEARN?YES LEARNING PREFERENCES?NO EMOTIONAL BARRIERS?NO SPECIAL DEVICES?NO COMMUNITY ORGANIZATION DIRECTOR NEEDED?NO REVIEWED 02/26/18 0920 BVREVIEWED WITH PT 06/25/18 0915 LASREVIEWED WITH PATIENT 08/31/18 1001 JSREVIEWED WITH PT 09/28/18 0903 BVREVIEWED WITH PATIENT 11/10/18 0926 JSREVIEWED WITH PT 06/02/19 1022 BV. HOSPITALIZATION/MAJOR DIAGNOSTIC PROCEDURE SLEEP STUDY MENTAL HEALTH 2012 REVIEW OF SYSTEMS REVIEWED BY: PROVIDER: . CONSTITUTIONAL: ANY CHANGE IN YOUR MEDICAL CONDITION? NO . CHILLS NO . FEVER NO . INFECTION: DO YOU HAVE NEW INFECTIONS? NO . DO YOU HAVE HISTORY OF MRSA? NO . MUSCULOSKELETAL: ANY NEW PATTERNS OF PAIN OR NUMBNESS? YES INCREASED IN SHOULDERS . GASTROENTEROLOGY: ANY NEW CHANGE IN BOWEL CONTROL? NO . GENITOURINARY: ANY NEW CHANGE IN BLADDER CONTROL? NO . IS THERE A CHANCE YOU COULD BE ? NO . HEMATOLOGY/LYMPH: DO YOU TAKE ANY BLOOD THINNERS? (FOR EXAMPLE- COUMADIN, PLAVIX, AGGRENOX, PLATEL, PRADAXA, OR XARELTO) NO . WHEN WAS YOUR LAST DOSE? DATE: TIME: . NEUROLOGY: HAVE YOU FALLEN IN THE PAST 12 MONTHS? NO . ANY NEW EXTREMITY NUMBNESS OR WEAKNESS? NO . CARDIOLOGY: DO YOU HAVE A PACEMAKER OR DEFIBRILLATOR? NO . RESPIRATORY: HAVE YOU BEEN SICK IN THE PAST WEEK? NO . FEVER NO . FLU LIKE SYMPTOMS? NO . COUGH NO . INTEGUMENTARY: DO YOU HAVE ANY RASHES OR OPEN SORES? NO . ALLERGIC/IMMUNO: ARE YOU ALLERGIC TO IV DYE? NO . ANY NEW ALLERGIES? NO . PSYCHIATRIC: DO YOU HAVE THOUGHTS OF HURTING YOURSELF OR SOMEONE ELSE? NO . ARE YOU ABUSED, NEGLECTED, OR IN AN UNSAFE ENVIRONMENT? NO . ENDOCRINOLOGY: ARE YOU DIABETIC? NO . OTHER: DO YOU NEED ANY PRESCRIPTIONS? NO . IF YES, PLEASE LIST: ____ . ANY NEW PROBLEMS WITH YOUR MEDICATIONS? NO . WHEN DID YOU LAST EAT? ____8 PM LAST NIGHT . WHEN DID YOU LAST DRINK? ____0500 THIS MORNING . WHAT DID YOU LAST DRINK? ____WATER . NAME OF PERSON DRIVING YOU HOME? ____KRISTEL . DO YOU HAVE ANY OTHER QUESTIONS OR CONCERNS NO . VITAL SIGNS WT 214 LBS, HT 68 IN, BMI 32.54 INDEX, BP 102/74 MM HG, HR 91 /MIN, RR 18 /MIN, TEMP 97.0 F, OXYGEN SAT % 99%, SAFE IN ENV? (Y/N) Y, NA INITIALS NE 09:58, REVIEWED BY: KG. ASSESSMENTS MYALGIA, OTHER SITE - M79.18 (PRIMARY) PROCEDURES PN TRIGGER POINT INJECTION WITH STEROIDS PRE PROCEDURE DIAGNOSIS 1. MYALGIA 2. PAIN AT BILATERAL THORACIC AREA POST PROCEDURE DIAGNOSIS 1. MYALGIA 2. PAIN AT BILATERAL THORACIC AREA PROCEDURE TRIGGER POINT INJECTION AT BILATERAL THORACIC AREA SURGEON DR. SHELIA VILLASENOR APPLIER NONE ANESTHESIA LOCAL PRE PROCEDURE NOTE THE PATIENT HAS A HISTORY OF CHRONIC PAIN AT THE RIGHT AND LEFT THORACIC AREA. I EVALUATE THE PATIENT AND REVIEWED THE CHART. THERE IS EVIDENCE OF BANDS OF TISSUE WITH RESTRICTION OF MOVEMENT AND PRESENCE OF TRIGGER POINT AT THE AFFECTED AREA. I WENT OVER THE RISKS, ALTERNATIVES, AND BENEFITS ASSOCIATED WITH THIS PROCEDURE. THE PATIENT WOULD LIKE TO PROCEED AND GIVE CONSENT TO PERFORMED THE PROCEDURE. THE PATIENT DENIES UNEXPLAINABLE WEIGHT LOSS, FEVER, CHILLS, OR NEW CHANGES IN URINARY OR BOWEL CONTROL DESCRIPTION OF PROCEDURE THE PATIENT WAS BROUGHT TO THE PROCEDURE ROOM AND PLACED IN THE SITTING POSITION. THE AREA WAS CLEANED WITH ALCOHOL. THE PROCEDURE WAS DONE USING ASEPTIC STERILE TECHNIQUE. I CHECKED LATERALITY AND THE LEVEL WHERE THE PROCEDURE WAS GOING TO BE PERFORMED WITH THE PATIENT AND THE SUPPORTING STAFF AT THE MOMENT OF THE TIME OUT IN THE PROCEDURE ROOM. USING A 25-GAUGE NEEDLE, TRIGGER POINTS WERE INJECTED AT THE RIGHT AND LEFT THORACIC AREA WITH A TOTAL OF 40 ML OF BUPIVACAINE 0.25% AND KENALOG 40 MG. THERE WAS NO EVIDENCE OF BLOOD, PARESTHESIA OR CEREBROSPINAL FLUID DURING THE PROCEDURE. THE PATIENT WAS SENT TO THE RECOVERY ROOM. THE PATIENT WAS MOVING THE EXTREMITIES AND DOING WELL. THERE WAS NO COMPLICATION DURING THE PROCEDURE POST PROCEDURE NOTE THE PATIENT WILL BE SEEN IN A FOLLOW UP IN THE NEXT FEW WEEKS. INSTRUCTIONS WERE GIVEN, QUESTIONS WERE ANSWERED, AND THE PATIENT EXPRESSED UNDERSTANDING AND AGREES WITH THE PLAN. I, YASMEEN DE LEÓN, DOCUMENTED THE ABOVE INFORMATION ACTING A SCRIBE FOR DR. VILLASENOR. I HAVE REVIEWED THE ABOVE DOCUMENT, WRITTEN BY YASMEEN WEIRIBSherrill AND I VERIFY THAT IT IS ACCURATE. PROCEDURE CODES 24346 INJ TRIGGER POINT / [facility] [place] DISPOSITION & COMMUNICATION FOLLOW UP 3 WEEKS ELECTRONICALLY SIGNED BY SHELIA VILLASENOR MD, MD ON 06/16/2019 AT 11:53 AM EDT DISCLAIMER : THIS IS A VISIT SUMMARY EXTRACTED FROM THE [employer] CHART. IT IS NOT A COPY OF THE [employer] PROGRESS NOTE. CORIN
== END ==
LOC: M PAIN 09:30
PROVIDERS: ATTEND Anesthesiology
DX: M79.18 Myalgia, other site (principal); G89.29 Other chronic pain; F17.210 Nicotine dependence, cigarettes, uncomplicated; Z79.899 Other long term (current) drug therapy; Z88.8 Allergy status to other drugs, medicaments and biological substances
CPT/HCPCS: 20552; J3301

== ENCOUNTER → 2019-06-21 | Outpatient (CLI) | payer OTHER ==
[~2019-06-21] MED LIST changes: +ALL10TAB28 PO; -ALL10TAB29 PO; -BUPIVACAINE HCL 0.25% 10 ML VIAL As Ordered ONE; -BUPIVACAINE HCL 0.25% 30 ML VIAL As Ordered ONE; -MAGN400T3 PO; +OMEP40CA2 PO; -OMEP40CA97 PO; -PROT1TAB2 PO; -RIBO400T PO; -ROSU40TA4 PO; -TRIAMCINOLONE ACETONIDE SUSP 40 MG/ML VIAL (J3301) As Ordered ONE; -VITATAB73 PO; -diazePAM 5 MG TAB As Ordered ONE; -oxyCODONE 5MG TAB As Ordered ONE
--- NOTE | 2019-07-08 00:44 | ECWPNPC ---
PATIENT NAME: CARLITO HUA : 1970 GENDER: MALE VISIT DATE: 06/21/2019 DISCHARGE DATE: 06/21/19 1048 VISIT LOCKED DATE TIME: PHYSICIAN: MICHAEL HERNANDEZ RESOURCE: MICHAEL HERNANDEZ REASON FOR APPOINTMENT 1. POST TPI HISTORY OF PRESENT ILLNESS HISTORY OF PRESENT ILLNESS: HERE FOR POST PROCEDURE F/U.HAD TPI MID THORACIC ON 06/02/19.CONTINUES TO BENEFIT FROM REDUCED PAIN IN THAT REGION.CHIEF AREA OF PAIN IS LOW BACK.RATING PAIN VAS 7/10.DESCRIBES PAIN CONTINUOUS AND SHARP.PAIN IS AGGREVATED BY PROLONGED SITTING. PAIN THE PATIENT DESCRIBES THE PAIN... FALL RISK SCREENING: SCREENING :NO FALLS REPORTED IN THE LAST YEAR CURRENT MEDICATIONS TAKING TIZANIDINE HCL 4 MG TABLET 1 TABLET NEEDED ORALLY BID TAKING BACLOFEN 20 MG TABLET 2 TABLET WITH FOOD OR MILK ORALLY EVERY 8 HRS TAKING RIBOFLAVIN 100 MG TABLET 1 TABLET WITH A MEAL ORALLY TWICE A DAY TAKING MAGNESIUM 400 MG CAPSULE ORALLY TWICE DAILY TAKING TOPIRAMATE 100 MG TABLET 1 TABLET ORALLY NIGHTLY TAKING TOPIRAMATE 50 MG TABLET 1 TABLET ORALLY IN MORNING TAKING POTASSIUM CHLORIDE 10 MEQ CAPSULE EXTENDED RELEASE 1 CAPSULE WITH FOOD ORALLY ONCE A DAY TAKING ATENOLOL 25 MG TABLET 1 TABLET ORALLY ONCE A DAY TAKING FISH OIL 1000 MG CAPSULE 1 CAPSULE ORALLY TID TAKING VITAMIN B COMPLEX - TABLET ORALLY DAILY TAKING CRESTOR 40 MG TABLET 1 TABLET ORALLY ONCE A DAY TAKING BOTOX 200 UNIT SOLUTION RECONSTITUTED INJECTION Q 3 MONTHS AT THE CA TAKING DULOXETINE HCL 30 MG CAPSULE DELAYED RELEASE PARTICLES 3 CAPSULES ORALLY ONCE A DAY TAKING COMBIVENT 120-20 MCG/ACT AEROSOL 2 PUFFS INHALATION FOUR TIMES A DAY, NOTES: NOT LATELY TAKING SYMBICORT 80-4.5 MCG/ACT AEROSOL 2 PUFFS INHALATION TWICE A DAY TAKING VIAGRA 100 MG TABLET 1 CAP(S) ORALLY DIRECTED TAKING PROTONIX 20 MG TABLET DELAYED RELEASE 1 TABLET ORALLY ONCE A DAY TAKING KLONOPIN 0.5 MG TABLET 1 TABLET AT BEDTIME ORALLY ONCE A DAY NOT-TAKING NICOTINE POLACRILEX 2 MG LOZENGE 1 LOZENGE NEEDED MOUTH/THROAT 20 TIME(S) A DAY, NOTES: NOT LATELY NOT-TAKING NICOTINE 14 MG/24HR PATCH 24 HOUR 1 PATCH TO SKIN TRANSDERMAL ONCE A DAY, NOTES: NOT USING NOW NOT-TAKING OMEPRAZOLE 10 MG CAPSULE DELAYED RELEASE 1 CAPSULE ORALLY BID MEDICATION LIST REVIEWED AND RECONCILED WITH THE PATIENT PAST MEDICAL HISTORY DEGENERATIVE DISC DISEASE ED ANXIETY, PTSD HEADACHES HEARING IMPAIMENT LOW BACK AND NECK PAIN RESTLESS LEG SYNDROME COPD W/O2 2L N/C AT NIGHT FRANCES'S ESOPHAGUS ALLERGIES PRAZOSIN HCL: URINARY LEAKAGE - SIDE EFFECTS SURGICAL HISTORY BILATERAL INGUINAL HERNIORRHAPHY (AGE 1) COLONOSCOPY 05/20 FAMILY HISTORY FATHER: 51 YRS, CHLORINE ASPHYXIATION MOTHER: 60 YRS, BRAIN CANCER SIBLINGS: 38/35 YRS, CAR ACCIDENT/SURGICAL COMPLICATIONS NEGATIVE FOR PROSTATE CANCER OR ANY OTHER UROLOGIC DISEASE. SOCIAL HISTORY GENERAL: TOBACCO USE ARE YOU A:CURRENT SMOKER ARE YOU INTERESTED IN QUITTING?READY TO QUIT CURRENTLY TRYING TO QUIT, USING NICOTINE LOZENGES AND PATCHES AND IS CUTTING BACK COUNSELED THE PATIENT ON TOBACCO USE, CESSATION [id number]/19/2019 PATIENT COUNSELED ON THE DANGERS OF TOBACCO USE AND URGED TO QUIT:01/20/2019 PAIN CLINIC PFS, CLERGY, PUBLIC HEALTH REFERRALS PFS REFERRAL NEEDED?NO CLERGY REFERRAL NEEDED?NO PUBLIC HEALTH REFERRAL NEEDED?NO WAS THE PROVIDER NOTIFIED OF ANY PERTINENT INFO? N/A HAS THE PATIENT BEEN EDUCATED REGARDING HIS/HER PLAN OF CARE?YES HAS THE PATIENT BEEN EDUCATED REGARDING PAIN, THE RISK FOR PAIN, THE IMPORTANCE OF EFFECTIVE PAIN MANAGEMENT, AND THE PAIN ASSESSMENT PROCESS?YES LATEX QUESTIONNAIRE LATEX ALLERGY : HAVE YOU EVER DEVELOPED ANY TYPE OF REACTION AFTER HANDLING LATEX PRODUCTS SUCH RUBBER GLOVES, CONDOMS, DIAPHRAGMS, BALLOONS, SOCKS, OR UNDERWEAR?NO LATEX ALLERGY : HAVE YOU EVER DEVELOPED ANY TYPE OF REACTION DURING OR AFTER DENTAL APPOINTMENT, VAGINAL/RECTAL EXAMINATION, SURGICAL PROCEDURE, OR ANY OTHER EXPOSURE?NO LATEX RISK : HAVE YOU EVER HAD ANY DIFFICULTY BREATHING OR HIVES AFTER EATING OR HANDLING ANY FRUITS, OR VEGETABLES; SUCH KIWI, BANANAS, STONE FRUITS, OR CHESTNUTSNO LATEX RISK : DO YOU HAVE A PREVIOUS PERSONAL HISTORY OF MORE THAN NINE SURGERIES, SPINA BIFIDA, OR REPEATED CATHERIZATIONS? NO LATEX RISK : ARE YOU FREQUENTLY EXPOSED TO LATEX PRODUCTS IN YOUR OCCUPATION?NO DATE ASKED : 01/20/2019 CAFFEINE CAFFEINE USE?YES HOW OFTEN AND HOW MUCH? HAS 1-2 CUPS OF COFFEE DAILY ADVANCE DIRECTIVE ADVANCE DIRECTIVE DISCUSSED WITH PATIENT:YES PT DOES NOT HAVE ANY ADVANCED DIRECTIVES AND HE DECLINES INFORMATION ON HCP AT THIS TIME. DIET: REGULAR. 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 HOSPITALIZATION/MAJOR DIAGNOSTIC PROCEDURE SLEEP STUDY MENTAL HEALTH 2012 REVIEW OF SYSTEMS REVIEWED BY: PROVIDER: MICHAEL SOTELO . CONSTITUTIONAL: ANY CHANGE IN YOUR MEDICAL CONDITION? NO . CHILLS NO . FEVER NO . INFECTION: DO YOU HAVE NEW INFECTIONS? NO . DO YOU HAVE HISTORY OF MRSA? NO . MUSCULOSKELETAL: ANY NEW PATTERNS OF PAIN OR NUMBNESS? NO . GASTROENTEROLOGY: ANY NEW CHANGE IN BOWEL CONTROL? NO . GENITOURINARY: ANY NEW CHANGE IN BLADDER CONTROL? NO . IS THERE A CHANCE YOU COULD BE ? NO . HEMATOLOGY/LYMPH: DO YOU TAKE ANY BLOOD THINNERS? (FOR EXAMPLE- COUMADIN, PLAVIX, AGGRENOX, PLATEL, PRADAXA, OR XARELTO) NO . WHEN WAS YOUR LAST DOSE? DATE: TIME: . NEUROLOGY: HAVE YOU FALLEN IN THE PAST 12 MONTHS? NO . ANY NEW EXTREMITY NUMBNESS OR WEAKNESS? NO . CARDIOLOGY: DO YOU HAVE A PACEMAKER OR DEFIBRILLATOR? NO . RESPIRATORY: HAVE YOU BEEN SICK IN THE PAST WEEK? NO . FEVER NO . FLU LIKE SYMPTOMS? NO . COUGH NO . INTEGUMENTARY: DO YOU HAVE ANY RASHES OR OPEN SORES? NO . ALLERGIC/IMMUNO: ARE YOU ALLERGIC TO IV DYE? NO . ANY NEW ALLERGIES? NO . PSYCHIATRIC: DO YOU HAVE THOUGHTS OF HURTING YOURSELF OR SOMEONE ELSE? NO . ARE YOU ABUSED, NEGLECTED, OR IN AN UNSAFE ENVIRONMENT? NO . ENDOCRINOLOGY: ARE YOU DIABETIC? NO . OTHER: DO YOU NEED ANY PRESCRIPTIONS? NO . IF YES, PLEASE LIST: ____ . ANY NEW PROBLEMS WITH YOUR MEDICATIONS? NO . WHEN DID YOU LAST EAT? ____ . WHEN DID YOU LAST DRINK? ____ . WHAT DID YOU LAST DRINK? ____ . NAME OF PERSON DRIVING YOU HOME? ____ . DO YOU HAVE ANY OTHER QUESTIONS OR CONCERNS NO . VITAL SIGNS WT 213.8 LBS, HT 68 IN, BMI 32.50 INDEX, BP 133/82 MM HG, HR 100 /MIN, RR 18 /MIN, TEMP 96.7 F, OXYGEN SAT % 96%, NA INITIALS SC 10:03, REVIEWED BY: EM. EXAMINATION GENERAL EXAMINATION: GENERAL AWAKE,ALERT ,PLEAASANT . PSYCH AFFECT NORMAL . LUNGS: LUNG RAYGOZA ARE CLEAR TO AUSCULTATION BILATERALLY. GOOD MOVEMENT OF AIR . HEART: S1, S2 IN A REGULAR RATE AND RHYTHM. NO SIGNIFICANT MURMURS, RUBS OR GALLOPS NOTED . MUSCULOSKELETAL: WEAK OVER RIGHT LEG. LUMBAR SACRAL SPINE PALPATION: + FOR PAIN OVER L/S SPINE. + FOR PAIN OVER L/S PARASPINALS SLE + LEFT LEG FOR RIGHT LBP. NEUROLOGIC EXAM: NORMAL SENSATION LIGHT TOUCH BILAT. LOWER EXTREMITIES. DIAGNOSTIC TESTS REVIEWED MRI L/S SPINE-2017. ASSESSMENTS PROTRUSION OF LUMBAR INTERVERTEBRAL DISC - M51.26 (PRIMARY) TREATMENT PROTRUSION OF LUMBAR INTERVERTEBRAL DISC NOTES: L4/5 LESI. PROCEDURE CODES FA211 ESTABILISHED PATIENT [facility] CHARGE DISPOSITION & COMMUNICATION FOLLOW UP POST (REASON: L4/5 LESI) ELECTRONICALLY SIGNED BY ASHLEIGH BARILLAS ON 07/07/2019 AT 04:00 PM EDT DISCLAIMER : THIS IS A VISIT SUMMARY EXTRACTED FROM THE [employer] CHART. IT IS NOT A COPY OF THE [employer] PROGRESS NOTE. CORIN
== END ==
LOC: M PAIN 09:45
PROVIDERS: ATTEND Nurse Practitioner Family
DX: M51.26 Other intervertebral disc displacement, lumbar region (principal); F17.210 Nicotine dependence, cigarettes, uncomplicated; Z79.899 Other long term (current) drug therapy; Z88.8 Allergy status to other drugs, medicaments and biological substances

== ENCOUNTER → 2019-07-20 | Outpatient (CLI) | payer OTHER ==
[~2019-07-20] MED LIST changes: -ALL10TAB28 PO; +ALL10TAB29 PO; +BUPIVACAINE HCL 0.25% 10 ML VIAL As Ordered ONE; +BUPIVACAINE HCL 0.25% 30 ML VIAL As Ordered ONE; +LIDOCAINE 1% SDV INJ 30 ML VIAL As Ordered ONE; +TRIAMCINOLONE ACETONIDE SUSP 40 MG/ML VIAL (J3301) As Ordered ONE; +diazePAM 5 MG TAB As Ordered ONE; +methylPREDNISolone SUSP 40 MG/ML (DEPO-medrol) VIAL (J1030) As Ordered ONE; +oxyCODONE 5MG TAB As Ordered ONE
--- NOTE | 2019-07-31 01:40 | ECWPNPC ---
PATIENT NAME: CARLITO HUA : 1970 GENDER: MALE VISIT DATE: 07/20/2019 DISCHARGE DATE: 07/20/19 1617 VISIT LOCKED DATE TIME: PHYSICIAN: SHELIA VILLASENOR MD RESOURCE: SHELIA VILLASENOR MD REASON FOR APPOINTMENT 1. TPI BILAT LUMBAR HISTORY OF PRESENT ILLNESS HISTORY OF PRESENT ILLNESS: PAIN THE PATIENT DESCRIBES THE PAIN... 49 YEAR OLD MALE PATIENT WITH A HISTORY OF CHRONIC LOW BACK PAIN. THE PATIENT DESCRIBES THE PAIN ACHING, TENDER, SHARP, STABBING, AND CONTINUOUS WITH A PAIN SCORE OF 6-9/10 DEPENDING ON PHYSICAL ACTIVITY. THE PATIENT SAYS HE HAS BEEN SUFFERING FROM THIS PAIN FOR SEVERAL YEARS. PATIENT DENIES UNEXPLAINABLE WEIGHT LOSS, FEVER, CHILLS, NEW CHANGES ON HIS URINARY OR BOWEL CONTROL. FALL RISK SCREENING: SCREENING :NO FALLS REPORTED IN THE LAST YEAR CURRENT MEDICATIONS TAKING TIZANIDINE HCL 4 MG TABLET 1 TABLET ORALLY BID, NOTES: 1 1/2 WEEKS AGO TAKING BACLOFEN 20 MG TABLET 2 TABLET WITH FOOD OR MILK ORALLY EVERY 8 HRS, NOTES: 1 1/2 WEEKS AGO TAKING RIBOFLAVIN 100 MG TABLET 1 TABLET WITH A MEAL ORALLY TWICE A DAY TAKING MAGNESIUM 400 MG CAPSULE ORALLY TWICE DAILY TAKING TOPIRAMATE 100 MG TABLET 1 TABLET ORALLY NIGHTLY TAKING TOPIRAMATE 50 MG TABLET 1 TABLET ORALLY IN MORNING TAKING POTASSIUM CHLORIDE 10 MEQ CAPSULE EXTENDED RELEASE 1 CAPSULE WITH FOOD ORALLY ONCE A DAY TAKING ATENOLOL 25 MG TABLET 1 TABLET ORALLY ONCE A DAY TAKING FISH OIL 1000 MG CAPSULE 1 CAPSULE ORALLY TID TAKING VITAMIN B COMPLEX - TABLET ORALLY DAILY TAKING CRESTOR 40 MG TABLET 1 TABLET ORALLY ONCE A DAY TAKING BOTOX 200 UNIT SOLUTION RECONSTITUTED INJECTION Q 3 MONTHS AT THE UT TAKING DULOXETINE HCL 30 MG CAPSULE DELAYED RELEASE PARTICLES 3 CAPSULES ORALLY ONCE A DAY TAKING COMBIVENT 120-20 MCG/ACT AEROSOL 2 PUFFS INHALATION FOUR TIMES A DAY NEEDED, NOTES: NOT LATELY TAKING SYMBICORT 80-4.5 MCG/ACT AEROSOL 2 PUFFS INHALATION BEFORE BEDTIME TAKING VIAGRA 100 MG TABLET 1 CAP(S) ORALLY DIRECTED TAKING PROTONIX 20 MG TABLET DELAYED RELEASE 1 TABLET ORALLY ONCE A DAY TAKING KLONOPIN 0.5 MG TABLET 1 TABLET AT BEDTIME ORALLY ONCE A DAY NOT-TAKING NICOTINE POLACRILEX 2 MG LOZENGE 1 LOZENGE NEEDED MOUTH/THROAT 20 TIME(S) A DAY, NOTES: NOT LATELY NOT-TAKING NICOTINE 14 MG/24HR PATCH 24 HOUR 1 PATCH TO SKIN TRANSDERMAL ONCE A DAY, NOTES: NOT USING NOW NOT-TAKING OMEPRAZOLE 10 MG CAPSULE DELAYED RELEASE 1 CAPSULE ORALLY BID MEDICATION LIST REVIEWED AND RECONCILED WITH THE PATIENT PAST MEDICAL HISTORY DEGENERATIVE DISC DISEASE ED ANXIETY, PTSD HEADACHES HEARING IMPAIMENT LOW BACK AND NECK PAIN RESTLESS LEG SYNDROME COPD W/O2 2L N/C AT NIGHT FRANCES'S ESOPHAGUS ALLERGIES PRAZOSIN HCL: URINARY LEAKAGE - SIDE EFFECTS SURGICAL HISTORY BILATERAL INGUINAL HERNIORRHAPHY (AGE 1) COLONOSCOPY 05/20 FAMILY HISTORY FATHER: 51 YRS, CHLORINE ASPHYXIATION MOTHER: 60 YRS, BRAIN CANCER SIBLINGS: 38/35 YRS, CAR ACCIDENT/SURGICAL COMPLICATIONS NEGATIVE FOR PROSTATE CANCER OR ANY OTHER UROLOGIC DISEASE. SOCIAL HISTORY GENERAL: TOBACCO USE ARE YOU A:CURRENT SMOKER ARE YOU INTERESTED IN QUITTING?READY TO QUIT CURRENTLY TRYING TO QUIT, USING NICOTINE LOZENGES AND PATCHES AND IS CUTTING BACK COUNSELED THE PATIENT ON TOBACCO USE, CESSATION [id number]/17/2019 PATIENT COUNSELED ON THE DANGERS OF TOBACCO USE AND URGED TO QUIT:07/20/2019 PAIN CLINIC PFS, CLERGY, PUBLIC HEALTH REFERRALS PFS REFERRAL NEEDED?NO CLERGY REFERRAL NEEDED?NO PUBLIC HEALTH REFERRAL NEEDED?NO WAS THE PROVIDER NOTIFIED OF ANY PERTINENT INFO? N/A HAS THE PATIENT BEEN EDUCATED REGARDING HIS/HER PLAN OF CARE?YES HAS THE PATIENT BEEN EDUCATED REGARDING PAIN, THE RISK FOR PAIN, THE IMPORTANCE OF EFFECTIVE PAIN MANAGEMENT, AND THE PAIN ASSESSMENT PROCESS?YES LATEX QUESTIONNAIRE LATEX ALLERGY : HAVE YOU EVER DEVELOPED ANY TYPE OF REACTION AFTER HANDLING LATEX PRODUCTS SUCH RUBBER GLOVES, CONDOMS, DIAPHRAGMS, BALLOONS, SOCKS, OR UNDERWEAR?NO LATEX ALLERGY : HAVE YOU EVER DEVELOPED ANY TYPE OF REACTION DURING OR AFTER DENTAL APPOINTMENT, VAGINAL/RECTAL EXAMINATION, SURGICAL PROCEDURE, OR ANY OTHER EXPOSURE?NO DATE ASKED : 01/20/2019 LATEX RISK : HAVE YOU EVER HAD ANY DIFFICULTY BREATHING OR HIVES AFTER EATING OR HANDLING ANY FRUITS, OR VEGETABLES; SUCH KIWI, BANANAS, STONE FRUITS, OR CHESTNUTSNO LATEX RISK : DO YOU HAVE A PREVIOUS PERSONAL HISTORY OF MORE THAN NINE SURGERIES, SPINA BIFIDA, OR REPEATED CATHERIZATIONS? NO LATEX RISK : ARE YOU FREQUENTLY EXPOSED TO LATEX PRODUCTS IN YOUR OCCUPATION?NO CAFFEINE CAFFEINE USE?YES HOW OFTEN AND HOW MUCH? HAS 1-2 CUPS OF COFFEE DAILY ADVANCE DIRECTIVE ADVANCE DIRECTIVE DISCUSSED WITH PATIENT:YES 07/20/19 PT DOES NOT HAVE ANY ADVANCED DIRECTIVES AND HE DECLINES INFORMATION ON HCP AT THIS TIME. AD DIET: REGULAR. 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 HOSPITALIZATION/MAJOR DIAGNOSTIC PROCEDURE SLEEP STUDY MENTAL HEALTH 2012 REVIEW OF SYSTEMS REVIEWED BY: PROVIDER: SHELIA VILLASENOR MD . CONSTITUTIONAL: ANY CHANGE IN YOUR MEDICAL CONDITION? NO . CHILLS NO . FEVER NO . INFECTION: DO YOU HAVE NEW INFECTIONS? NO . DO YOU HAVE HISTORY OF MRSA? NO . MUSCULOSKELETAL: ANY NEW PATTERNS OF PAIN OR NUMBNESS? YES, INCREASE IN PAIN IN LOW BACK SINCE 07/16 . GASTROENTEROLOGY: ANY NEW CHANGE IN BOWEL CONTROL? NO . GENITOURINARY: ANY NEW CHANGE IN BLADDER CONTROL? NO . IS THERE A CHANCE YOU COULD BE ? NO . HEMATOLOGY/LYMPH: DO YOU TAKE ANY BLOOD THINNERS? (FOR EXAMPLE- COUMADIN, PLAVIX, AGGRENOX, PLATEL, PRADAXA, OR XARELTO) NO . WHEN WAS YOUR LAST DOSE? DATE: TIME: . NEUROLOGY: HAVE YOU FALLEN IN THE PAST 12 MONTHS? NO . ANY NEW EXTREMITY NUMBNESS OR WEAKNESS? NO . CARDIOLOGY: DO YOU HAVE A PACEMAKER OR DEFIBRILLATOR? NO . RESPIRATORY: HAVE YOU BEEN SICK IN THE PAST WEEK? NO . FEVER NO . FLU LIKE SYMPTOMS? NO . COUGH NO . INTEGUMENTARY: DO YOU HAVE ANY RASHES OR OPEN SORES? NO . ALLERGIC/IMMUNO: ARE YOU ALLERGIC TO IV DYE? NO . ANY NEW ALLERGIES? NO . PSYCHIATRIC: DO YOU HAVE THOUGHTS OF HURTING YOURSELF OR SOMEONE ELSE? NO . ARE YOU ABUSED, NEGLECTED, OR IN AN UNSAFE ENVIRONMENT? NO . ENDOCRINOLOGY: ARE YOU DIABETIC? NO . OTHER: DO YOU NEED ANY PRESCRIPTIONS? NO . IF YES, PLEASE LIST: ____ . ANY NEW PROBLEMS WITH YOUR MEDICATIONS? NO . WHEN DID YOU LAST EAT? 07/19 2300 . WHEN DID YOU LAST DRINK? 07/20 0600 . WHAT DID YOU LAST DRINK? WATER . NAME OF PERSON DRIVING YOU HOME? VIKTOR . DO YOU HAVE ANY OTHER QUESTIONS OR CONCERNS NO PT HAS NOT HAD ANY VACCINES IN THE PAST 30 DAYS . VITAL SIGNS WT 214.0 LBS, HT 68 IN, BMI 32.54 INDEX, BP 129/78 MM HG, HR 93 /MIN, RR 18 /MIN, TEMP 97.2 F, OXYGEN SAT % 97%, SAFE IN ENV? (Y/N) Y, NA INITIALS AW 1342, REVIEWED BY: NANCY. EXAMINATION GENERAL EXAMINATION: PATIENT IS ALERT O X 3 AND COOPERATIVE. TENDERNESS IN THE LOW BACK. PRESENCE OF BANDS OF TISSUE AND TRIGGER POINTS WITH RESTRICTION OF MOVEMENT OF THE LOW BACK. ASSESSMENTS MYALGIA, OTHER SITE - M79.18 (PRIMARY) LOW BACK PAIN - M54.5 OTHER CHRONIC PAIN - G89.29 TREATMENT MYALGIA, OTHER SITE CLINICAL NOTES: WE DISCUSSED SEVERAL ISSUES WITH MR. HUA' PAIN MANAGEMENT CASE. DUE TO THE TRIGGER POINTS, BANDS OF TISSUE, AND RESTRICTION OF MOVEMENT, I WOULD LIKE TO MOVE FORWARD WITH BILATERAL LOW BACK TRIGGER POINT INJECTIONS AT THIS TIME. WE DISCUSSED THE BENEFITS, RISKS, AND ALTERNATIVES OF THE INJECTION AND THE PATIENT WOULD LIKE TO PROCEED. I AM LOOKING FOR LONG LASTING PAIN RELIEF FROM THIS INJECTION FOR THE PATIENT. THE PATIENT WILL FOLLOW UP IN SEVERAL WEEKS. INSTRUCTIONS WERE GIVEN, QUESTIONS WERE ANSWERED, PATIENT REPORTS UNDERSTANDING AND AGREES WITH THE PLAN. I, DALE SCOTT, DOCUMENTED THE ABOVE INFORMATION ACTING A SCRIBE FOR DR. VILLASENOR. I HAVE REVIEWED THE ABOVE DOCUMENT, WRITTEN BY DALE GONGORA AND I VERIFY THAT IT IS ACCURATE. . PROCEDURES PN TRIGGER POINT INJECTION WITH STEROIDS PRE PROCEDURE DIAGNOSIS 1. MYALGIA 2. PAIN AT BILATERAL LOWER BACK AREA POST PROCEDURE DIAGNOSIS 1. MYALGIA 2. PAIN AT BILATERAL LOWER BACK AREA PROCEDURE TRIGGER POINT INJECTION AT RIGHT AND LEFT LOWER BACK AREA SURGEON DR. SHELIA VILLASENOR MANUFACTURING WEAVER NONE ANESTHESIA LOCAL PRE PROCEDURE NOTE THE PATIENT HAS A HISTORY OF CHRONIC PAIN AT THE RIGHT AND LEFT LOWER BACK AREA. I EVALUATED THE PATIENT AND REVIEWED THE CHART. THERE IS EVIDENCE OF BANDS OF TISSUE WITH RESTRICTION OF MOVEMENT AND PRESENCE OF TRIGGER POINT AT THE AFFECTED AREA. I WENT OVER THE RISKS, ALTERNATIVES, AND BENEFITS ASSOCIATED WITH THIS PROCEDURE. THE PATIENT WOULD LIKE TO PROCEED AND GIVES CONSENT TO PERFORM THE PROCEDURE. THE PATIENT DENIES UNEXPLAINABLE WEIGHT LOSS, FEVER, CHILLS, OR NEW CHANGES IN URINARY OR BOWEL CONTROL DESCRIPTION OF PROCEDURE THE PATIENT WAS BROUGHT TO THE PROCEDURE ROOM AND PLACED IN THE SITTING POSITION. THE AREA WAS CLEANED WITH ALCOHOL. THE PROCEDURE WAS DONE USING ASEPTIC STERILE TECHNIQUE. I CHECKED LATERALITY AND THE LEVEL WHERE THE PROCEDURE WAS GOING TO BE PERFORMED WITH THE PATIENT AND THE SUPPORTING STAFF AT THE MOMENT OF THE TIME OUT IN THE PROCEDURE ROOM. USING A 25-GAUGE NEEDLE, TRIGGER POINTS WERE INJECTED AT THE RIGHT AND LEFT LOWER BACK AREA WITH A TOTAL OF 40 ML OF BUPIVACAINE 0.25% AND KENALOG 40 MG. THERE WAS NO EVIDENCE OF BLOOD, PARESTHESIA OR CEREBROSPINAL FLUID DURING THE PROCEDURE. THE PATIENT WAS SENT TO THE RECOVERY ROOM. THE PATIENT WAS MOVING THE EXTREMITIES AND DOING WELL. THERE WAS NO COMPLICATION DURING THE PROCEDURE POST PROCEDURE NOTE THE PATIENT WILL BE SEEN IN A FOLLOW UP IN THE NEXT FEW WEEKS. INSTRUCTIONS WERE GIVEN, QUESTIONS WERE ANSWERED, AND THE PATIENT EXPRESSED UNDERSTANDING AND AGREES WITH THE PLAN. I, DALE SCOTT, DOCUMENTED THE ABOVE INFORMATION ACTING A SCRIBE FOR DR. VILLASENOR. I HAVE REVIEWED THE ABOVE DOCUMENT, WRITTEN BY DALE GONGORA AND I VERIFY THAT IT IS ACCURATE. PROCEDURE CODES 90285 INJ TRIGGER POINT / MUSC DISPOSITION & COMMUNICATION FOLLOW UP 3 WEEKS ELECTRONICALLY SIGNED BY SHELIA VILLASENOR MD, MD ON 07/30/2019 AT 11:30 AM EDT DISCLAIMER : THIS IS A VISIT SUMMARY EXTRACTED FROM THE [employer] CHART. IT IS NOT A COPY OF THE [employer] PROGRESS NOTE. CORIN
== END ==
LOC: M PAIN 13:30
PROVIDERS: ATTEND Anesthesiology
DX: G89.29 Other chronic pain (principal); M79.18 Myalgia, other site; M54.5 Low back pain; N52.9 Male erectile dysfunction, unspecified; F41.9 Anxiety disorder, unspecified; F43.10 Post-traumatic stress disorder, unspecified; M54.2 Cervicalgia; G25.81 Restless legs syndrome; J44.9 Chronic obstructive pulmonary disease, unspecified; K22.70 Barrett's esophagus without dysplasia; F17.210 Nicotine dependence, cigarettes, uncomplicated; Z79.899 Other long term (current) drug therapy; Z88.8 Allergy status to other drugs, medicaments and biological substances
CPT/HCPCS: 20552; J1030; J3301

== ENCOUNTER → 2019-08-10 | Outpatient (CLI) | payer OTHER ==
[~2019-08-10] MED LIST changes: -BUPIVACAINE HCL 0.25% 10 ML VIAL As Ordered ONE; -BUPIVACAINE HCL 0.25% 30 ML VIAL As Ordered ONE; -LIDOCAINE 1% SDV INJ 30 ML VIAL As Ordered ONE; -OMEP40CA2 PO; +OMEP40CA97 PO; -TRIAMCINOLONE ACETONIDE SUSP 40 MG/ML VIAL (J3301) As Ordered ONE; -diazePAM 5 MG TAB As Ordered ONE; -methylPREDNISolone SUSP 40 MG/ML (DEPO-medrol) VIAL (J1030) As Ordered ONE; -oxyCODONE 5MG TAB As Ordered ONE
--- NOTE | 2019-08-24 01:54 | ECWPNPC ---
PATIENT NAME: CARLITO HUA : 1970 GENDER: MALE VISIT DATE: 08/10/2019 DISCHARGE DATE: 08/10/19 1022 VISIT LOCKED DATE TIME: PHYSICIAN: MICHAEL HERNANDEZ RESOURCE: MICHAEL HERNANDEZ REASON FOR APPOINTMENT 1. POST TPI HISTORY OF PRESENT ILLNESS HISTORY OF PRESENT ILLNESS: HERE FOR POST PROCEDURE F/U.HAD TPI BILAT. LOW BACK ON 07/20/19.CONTINUES TO BENEFIT FROM REDUCED PAIN IN THAT REGION.CHIEF AREA OF PAIN IS BILAT NECK.RATING PAIN VAS 7/10.DESCRIBES PAIN CONTINUOUS AND SHARP.PAIN IS AGGREVATED BY ROJM NECK. PAIN THE PATIENT DESCRIBES THE PAIN... THE PATIENT DESCRIBES THE PAIN... FALL RISK SCREENING: SCREENING :NO FALLS REPORTED IN THE LAST YEAR CURRENT MEDICATIONS TAKING TIZANIDINE HCL 4 MG TABLET 1 TABLET ORALLY BID, NOTES: 1 1/2 WEEKS AGO TAKING BACLOFEN 20 MG TABLET 2 TABLET WITH FOOD OR MILK ORALLY EVERY 8 HRS, NOTES: 1 1/2 WEEKS AGO TAKING RIBOFLAVIN 100 MG TABLET 1 TABLET WITH A MEAL ORALLY TWICE A DAY TAKING MAGNESIUM 400 MG CAPSULE ORALLY TWICE DAILY TAKING TOPIRAMATE 100 MG TABLET 1 TABLET ORALLY NIGHTLY TAKING TOPIRAMATE 50 MG TABLET 1 TABLET ORALLY IN MORNING TAKING POTASSIUM CHLORIDE 10 MEQ CAPSULE EXTENDED RELEASE 1 CAPSULE WITH FOOD ORALLY ONCE A DAY TAKING ATENOLOL 25 MG TABLET 1 TABLET ORALLY ONCE A DAY TAKING FISH OIL 1000 MG CAPSULE 1 CAPSULE ORALLY TID TAKING VITAMIN B COMPLEX - TABLET ORALLY DAILY TAKING CRESTOR 40 MG TABLET 1 TABLET ORALLY ONCE A DAY TAKING BOTOX 200 UNIT SOLUTION RECONSTITUTED INJECTION Q 3 MONTHS AT THE [place] TAKING DULOXETINE HCL 30 MG CAPSULE DELAYED RELEASE PARTICLES 3 CAPSULES ORALLY ONCE A DAY TAKING COMBIVENT 120-20 MCG/ACT AEROSOL 2 PUFFS INHALATION FOUR TIMES A DAY NEEDED, NOTES: NOT LATELY TAKING SYMBICORT 80-4.5 MCG/ACT AEROSOL 2 PUFFS INHALATION BID TAKING VIAGRA 100 MG TABLET 1 CAP(S) ORALLY DIRECTED TAKING PROTONIX 20 MG TABLET DELAYED RELEASE 1 TABLET ORALLY ONCE A DAY TAKING KLONOPIN 0.5 MG TABLET 1 TABLET AT BEDTIME ORALLY ONCE A DAY NOT-TAKING NICOTINE POLACRILEX 2 MG LOZENGE 1 LOZENGE NEEDED MOUTH/THROAT 20 TIME(S) A DAY, NOTES: NOT LATELY NOT-TAKING NICOTINE 14 MG/24HR PATCH 24 HOUR 1 PATCH TO SKIN TRANSDERMAL ONCE A DAY, NOTES: NOT USING NOW NOT-TAKING OMEPRAZOLE 10 MG CAPSULE DELAYED RELEASE 1 CAPSULE ORALLY BID MEDICATION LIST REVIEWED AND RECONCILED WITH THE PATIENT PAST MEDICAL HISTORY DEGENERATIVE DISC DISEASE ED ANXIETY, PTSD HEADACHES HEARING IMPAIMENT LOW BACK AND NECK PAIN RESTLESS LEG SYNDROME COPD W/O2 2L N/C AT NIGHT FRANCES'S ESOPHAGUS ALLERGIES PRAZOSIN HCL: URINARY LEAKAGE - SIDE EFFECTS SURGICAL HISTORY BILATERAL INGUINAL HERNIORRHAPHY (AGE 1) COLONOSCOPY 05/20 FAMILY HISTORY FATHER: 51 YRS, CHLORINE ASPHYXIATION MOTHER: 60 YRS, BRAIN CANCER SIBLINGS: 38/35 YRS, CAR ACCIDENT/SURGICAL COMPLICATIONS NEGATIVE FOR PROSTATE CANCER OR ANY OTHER UROLOGIC DISEASE. SOCIAL HISTORY GENERAL: TOBACCO USE ARE YOU A:CURRENT SMOKER ARE YOU INTERESTED IN QUITTING?READY TO QUIT CURRENTLY TRYING TO QUIT, USING NICOTINE LOZENGES AND PATCHES AND IS CUTTING BACK PATIENT COUNSELED ON THE DANGERS OF TOBACCO USE AND URGED TO QUIT:07/20/2019 COUNSELED THE PATIENT ON TOBACCO USE, CESSATION [id number]/17/2019 PAIN CLINIC PFS, CLERGY, PUBLIC HEALTH REFERRALS PFS REFERRAL NEEDED?NO CLERGY REFERRAL NEEDED?NO PUBLIC HEALTH REFERRAL NEEDED?NO WAS THE PROVIDER NOTIFIED OF ANY PERTINENT INFO? N/A HAS THE PATIENT BEEN EDUCATED REGARDING HIS/HER PLAN OF CARE?YES HAS THE PATIENT BEEN EDUCATED REGARDING PAIN, THE RISK FOR PAIN, THE IMPORTANCE OF EFFECTIVE PAIN MANAGEMENT, AND THE PAIN ASSESSMENT PROCESS?YES LATEX QUESTIONNAIRE LATEX ALLERGY : HAVE YOU EVER DEVELOPED ANY TYPE OF REACTION AFTER HANDLING LATEX PRODUCTS SUCH RUBBER GLOVES, CONDOMS, DIAPHRAGMS, BALLOONS, SOCKS, OR UNDERWEAR?NO LATEX ALLERGY : HAVE YOU EVER DEVELOPED ANY TYPE OF REACTION DURING OR AFTER DENTAL APPOINTMENT, VAGINAL/RECTAL EXAMINATION, SURGICAL PROCEDURE, OR ANY OTHER EXPOSURE?NO DATE ASKED : 01/20/2019 LATEX RISK : HAVE YOU EVER HAD ANY DIFFICULTY BREATHING OR HIVES AFTER EATING OR HANDLING ANY FRUITS, OR VEGETABLES; SUCH KIWI, BANANAS, STONE FRUITS, OR CHESTNUTSNO LATEX RISK : DO YOU HAVE A PREVIOUS PERSONAL HISTORY OF MORE THAN NINE SURGERIES, SPINA BIFIDA, OR REPEATED CATHERIZATIONS? NO LATEX RISK : ARE YOU FREQUENTLY EXPOSED TO LATEX PRODUCTS IN YOUR OCCUPATION?NO CAFFEINE CAFFEINE USE?YES HOW OFTEN AND HOW MUCH? HAS 1-2 CUPS OF COFFEE DAILY ADVANCE DIRECTIVE ADVANCE DIRECTIVE DISCUSSED WITH PATIENT:YES PT DOES NOT HAVE ANY ADVANCED DIRECTIVES AND HE DECLINES INFORMATION ON HCP AT THIS TIME. DIET: REGULAR. VOODOO [id number] NONE LANGUAGE LANGUAGES SPOKEN:SWAZI DOMESTIC VIOLENCE DO YOU FEEL SAFE IN YOUR ENVIRONMENT?YES ALCOHOL SCREENING DID YOU HAVE A DRINK CONTAINING ALCOHOL IN THE PAST YEAR?NO POINTS0 INTERPRETATIONNEGATIVE RECREATIONAL DRUG USE DRUG USE?NO LEARNING BARRIERS / SPECIAL NEEDS BARRIERS TO LEARNING?NO HEARING IMPAIRED?YES VISION IMPAIRED?YES :HEARING AIDES BILATERAL : CORRECTIVE LENSES READINESS TO LEARN?YES LEARNING PREFERENCES?NO LEARNING CAPABILITIES PRESENT?YES EMOTIONAL BARRIERS?NO SPECIAL DEVICES?NO COMMUNITY SERVICE ORGANIZATION DIRECTOR NEEDED?NO REVIEWED 02/26/18 0920 BVREVIEWED WITH PT 06/25/18 0915 LASREVIEWED WITH PATIENT 08/31/18 1001 JSREVIEWED WITH PT 09/28/18 0903 BVREVIEWED WITH PATIENT 11/10/18 0926 JSREVIEWED WITH JIRHWDM73/8/2019 LASREVIEWED WITH PT 06/02/19 1022 BV. HOSPITALIZATION/MAJOR DIAGNOSTIC PROCEDURE SLEEP STUDY MENTAL HEALTH 2012 REVIEW OF SYSTEMS REVIEWED BY: PROVIDER: MICHAEL SOTELO . CONSTITUTIONAL: ANY CHANGE IN YOUR MEDICAL CONDITION? NO . CHILLS NO . FEVER NO . INFECTION: DO YOU HAVE NEW INFECTIONS? NO . DO YOU HAVE HISTORY OF MRSA? NO . MUSCULOSKELETAL: ANY NEW PATTERNS OF PAIN OR NUMBNESS? NO . GASTROENTEROLOGY: ANY NEW CHANGE IN BOWEL CONTROL? NO . GENITOURINARY: ANY NEW CHANGE IN BLADDER CONTROL? NO . IS THERE A CHANCE YOU COULD BE ? NO . HEMATOLOGY/LYMPH: DO YOU TAKE ANY BLOOD THINNERS? (FOR EXAMPLE- COUMADIN, PLAVIX, AGGRENOX, PLATEL, PRADAXA, OR XARELTO) NO . WHEN WAS YOUR LAST DOSE? DATE: TIME: . NEUROLOGY: HAVE YOU FALLEN IN THE PAST 12 MONTHS? NO . ANY NEW EXTREMITY NUMBNESS OR WEAKNESS? NO . CARDIOLOGY: DO YOU HAVE A PACEMAKER OR DEFIBRILLATOR? NO . RESPIRATORY: HAVE YOU BEEN SICK IN THE PAST WEEK? NO . FEVER NO . FLU LIKE SYMPTOMS? NO . COUGH NO . INTEGUMENTARY: DO YOU HAVE ANY RASHES OR OPEN SORES? NO . ALLERGIC/IMMUNO: ARE YOU ALLERGIC TO IV DYE? NO . ANY NEW ALLERGIES? NO . PSYCHIATRIC: DO YOU HAVE THOUGHTS OF HURTING YOURSELF OR SOMEONE ELSE? NO . ARE YOU ABUSED, NEGLECTED, OR IN AN UNSAFE ENVIRONMENT? NO . ENDOCRINOLOGY: ARE YOU DIABETIC? NO . OTHER: DO YOU NEED ANY PRESCRIPTIONS? NO . IF YES, PLEASE LIST: ____ . ANY NEW PROBLEMS WITH YOUR MEDICATIONS? NO . WHEN DID YOU LAST EAT? ____ . WHEN DID YOU LAST DRINK? ____ . WHAT DID YOU LAST DRINK? ____ . NAME OF PERSON DRIVING YOU HOME? ____ . DO YOU HAVE ANY OTHER QUESTIONS OR CONCERNS NO . VITAL SIGNS WT 214.4 LBS, HT 68 IN, BMI 32.60 INDEX, BP 122/73 MM HG, HR 93 /MIN, RR 18 /MIN, TEMP 98.0 F, OXYGEN SAT % 97%, SAFE IN ENV? (Y/N) YES, NA INITIALS AW 0944, REVIEWED BY: CHERY. EXAMINATION GENERAL EXAMINATION: GENERALAWAKE,ALERT ,PLEAASANT . PSYCHAFFECT NORMAL . LUNGS:LUNG RAYGOZA ARE CLEAR TO AUSCULTATION BILATERALLY. GOOD MOVEMENT OF AIR . HEART:S1, S2 IN A REGULAR RATE AND RHYTHM. NO SIGNIFICANT MURMURS, RUBS OR GALLOPS NOTED . CERVICALTRIGGER POINTS: CERVICAL AND TRAPEZIUS BILAT..PAIN IS AGGREVATED WITH ROJM NECK. ASSESSMENTS MYALGIA OF MUSCLE OF NECK - M79.18 (PRIMARY) TREATMENT MYALGIA OF MUSCLE OF NECK NOTES: TPI BILAT NECK. PREVENTIVE MEDICINE PAIN CLINIC TEACHING: PROCEDURE TEACHING PROCEDURE REVIEWED WITH PATIENT, PRE PROCEDURE INSTRUCTIONS REVIEWED, PATIENT VERBALIZES UNDERSTANDING, 08/10/2019 1021 CHERY. PROCEDURE CODES [id number] ESTABILISHED PATIENT [facility] FACILITY CHARGE DISPOSITION & COMMUNICATION FOLLOW UP POST (REASON: TPI BILAT NECK) ELECTRONICALLY SIGNED BY ASHLEIGH BARILLAS ON 08/23/2019 AT 02:12 PM EDT DISCLAIMER : THIS IS A VISIT SUMMARY EXTRACTED FROM THE [employer] CHART. IT IS NOT A COPY OF THE [employer] PROGRESS NOTE. CORIN
== END ==
LOC: M PAIN 09:15
PROVIDERS: ATTEND Nurse Practitioner Family
DX: M79.18 Myalgia, other site (principal); Z86.59 Personal history of other mental and behavioral disorders; G25.81 Restless legs syndrome; J44.9 Chronic obstructive pulmonary disease, unspecified; F17.210 Nicotine dependence, cigarettes, uncomplicated; Z88.8 Allergy status to other drugs, medicaments and biological substances; Z79.899 Other long term (current) drug therapy

== ENCOUNTER → 2021-08-14 | Outpatient (REF) | payer OTHER ==
[~2021-08-14] MED LIST changes: -ALL10TAB29 PO; +CETI-24 PO; +MAGN400T3 PO; +OMEP40CA4 PO; -OMEP40CA97 PO; +OXYC-1 PO; -OXYC15TA76 PO; -PROC5TA PO; +PROC5TAB57 PO; +PROT1TAB2 PO; +RIBO400T PO; +ROSU40TA4 PO; +VITATAB73 PO
== END ==
LOC: M LAB REF 18:35
PROVIDERS: ATTEND Surgery
DX: D17.21 Benign lipomatous neoplasm of skin and subcutaneous tissue of right arm (principal)